=== PATIENT | female | born 1945 | race Caucasian/White ===

== ENCOUNTER → 2018-06-21 08:11 | Outpatient (CLI) | payer OTHER, SELFPAY ==
--- NOTE | 2018-06-21 | DI.MG.S_ITS ---
BILATERAL DIGITAL SCREENING MAMMOGRAM 3D/2D WITH CAD: 06/21/2018 CLINICAL: Routine screening. Comparison is made to exams dated: 06/17/2017 mammogram, 05/25/2016 mammogram, and 05/12/2015 mammogram - [facility]. There are scattered fibroglandular elements in both breasts. Current study was also evaluated with a Computer Aided Detection (CAD) system. There are new grouped fine punctate calcifications in the right breast at 12 o'clock middle depth. There also are new grouped fine calcifications in the right breast central to the nipple anterior depth. No other significant masses, calcifications, or other findings are seen in either breast. IMPRESSION: INCOMPLETE: NEEDS ADDITIONAL IMAGING EVALUATION The new grouped fine punctate calcifications in the right breast at 12 o'clock middle depth are indeterminate. Mediolateral, spot magnification, and additional views are recommended. The new grouped fine calcifications in the right breast central to the nipple anterior depth are indeterminate. Mediolateral, spot magnification, and additional views are recommended. This exam was interpreted at Station ID: [id number]. NOTE: For mammograms, a report in lay terms will be sent to the patient. Approximately 15% of breast malignancies will not be visualized mammographically. In the management of a palpable breast mass, a negative mammogram must not discourage biopsy of a clinically suspicious lesion. Electronically Signed By: Amador doe/les:06/21/2018 09:27:30 letter sent: Additional Imaging Needed ACR BI-RADS Category 0: Incomplete 3340F
== END ==
PROVIDERS: PCP Family Medicine; Visit Provider Student in an Organized Health Care Education/Training Program
DX: Z12.31 Encounter for screening mammogram for malignant neoplasm of breast (principal)
CPT/HCPCS: 77063; 77067

== ENCOUNTER → 2018-06-27 08:55 | Outpatient (CLI) | payer OTHER, SELFPAY ==
--- NOTE | 2018-06-27 08:57 | DI.MG.S_ITS ---
UNILATERAL RIGHT DIGITAL DIAGNOSTIC MAMMOGRAM 3D/2D WITH ADDITIONAL VIEWS: 06/27/2018 CLINICAL: Additional evaluation requested from prior study. Comparison is made to exams dated: 06/21/2018 mammogram, 06/17/2017 mammogram, and 05/25/2016 mammogram - [facility]. There are scattered fibroglandular elements in right breast. There are benign grouped fine punctate round calcifications in the right breast at 12 o'clock middle depth. There also are benign regional fine calcifications in the right breast central to the nipple anterior depth. No other significant masses or calcifications are seen in the breast. IMPRESSION: There is no mammographic evidence of malignancy. A 1 year screening mammogram is recommended. This exam was interpreted at Station ID: [id number]. NOTE: For mammograms, a report in lay terms will be sent to the patient. Approximately 15% of breast malignancies will not be visualized mammographically. In the management of a palpable breast mass, a negative mammogram must not discourage biopsy of a clinically suspicious lesion. Electronically Signed By: Amador doe/les:06/27/2018 10:51:27 letter sent: Normal Exam ACR BI-RADS Category 2: Benign Finding(s) 3342F
== END ==
PROVIDERS: PCP Family Medicine; Visit Provider Student in an Organized Health Care Education/Training Program
DX: R92.8 Other abnormal and inconclusive findings on diagnostic imaging of breast (principal)
CPT/HCPCS: 77065; G0279

== ENCOUNTER → 2018-06-27 11:06 | Outpatient (CLI) | payer OTHER, SELFPAY ==
[2018-06-27 12:18] LABS: BUN Creatinine Ratio 18.8 (6-22); Blood Urea Nitrogen 15 mg/dL (7-17); Calcium 9.4 mg/dL (8.4-10.2); Carbon Dioxide 30 mmol/L (22-32); Chloride 101 mmol/L (98-107); Cholesterol 181 mg/dL (140-199); Estimated Glomerular Filt Rate > 60.0 mL/min (>60); Glucose 113 mg/dL (80-110); HDL Cholesterol 77 mg/dL (40-60); HEMOLYSIS < 15 (0-50); LDL Cholesterol Calculated 95 mg/dL (<100); Potassium 4.6 mmol/L (3.4-5.1); Sodium 142 mmol/L (137-145); Triglycerides 45 mg/dL (35-150)
[2018-06-27 12:30] LABS: Vitamin D 25 Hydroxy (D3) 46.1 ng/mL (30.0-100.0)
== END ==
PROVIDERS: PCP Student in an Organized Health Care Education/Training Program; Visit Provider Student in an Organized Health Care Education/Training Program
DX: E78.2 Mixed hyperlipidemia (principal); E55.9 Vitamin D deficiency, unspecified; I10 Essential (primary) hypertension
CPT/HCPCS: 36415; 80048; 80061; 82306

== ENCOUNTER → 2019-06-20 11:08 | Outpatient (CLI) | payer OTHER, SELFPAY ==
[2019-06-20 12:35] LABS: BUN Creatinine Ratio 26.3 (6-22); Blood Urea Nitrogen 21 mg/dL (7-17); Calcium 10.4 mg/dL (8.4-10.2); Carbon Dioxide 29 mmol/L (22-32); Chloride 102 mmol/L (98-107); Estimated Glomerular Filt Rate > 60.0 mL/min (>60); Glucose 108 mg/dL (80-110); HEMOLYSIS < 15 (0-50); Potassium 4.8 mmol/L (3.4-5.1); Sodium 139 mmol/L (137-145)
== END ==
PROVIDERS: PCP Student in an Organized Health Care Education/Training Program; Visit Provider Student in an Organized Health Care Education/Training Program
DX: R60.9 Edema, unspecified (principal); Z79.899 Other long term (current) drug therapy
CPT/HCPCS: 36415; 80048

== ENCOUNTER → 2019-07-14 13:37 | Outpatient (CLI) | payer OTHER, SELFPAY ==
--- NOTE | 2019-07-14 | DI.MG.S_ITS ---
BILATERAL DIGITAL SCREENING MAMMOGRAM 3D/2D WITH CAD: 07/14/2019 CLINICAL: Routine screening. Comparison is made to exams dated: 06/21/2018 mammogram, 06/17/2017 mammogram, and 05/25/2016 mammogram - [facility]. There are scattered fibroglandular elements in both breasts. Current study was also evaluated with a Computer Aided Detection (CAD) system. There is a 0.6 cm irregular equal density asymmetry in the left breast at 8 o'clock anterior depth. There is possible architectural distortion associated with the asymmetry. No other significant masses, calcifications, or other findings are seen in either breast. IMPRESSION: INCOMPLETE: NEEDS ADDITIONAL IMAGING EVALUATION The 0.6 cm irregular equal density asymmetry in the left breast is indeterminate. Additional views with possible ultrasound are recommended. This exam was interpreted at Station ID: [id number]. NOTE: For mammograms, a report in lay terms will be sent to the patient. Approximately 15% of breast malignancies will not be visualized mammographically. In the management of a palpable breast mass, a negative mammogram must not discourage biopsy of a clinically suspicious lesion. Electronically Signed By: Steve Loera M.D. aty/:07/16/2019 08:17:04 letter sent: Additional Imaging Needed ACR BI-RADS Category 0: Incomplete 3340F
== END ==
PROVIDERS: PCP Student in an Organized Health Care Education/Training Program; Visit Provider Student in an Organized Health Care Education/Training Program
DX: Z12.31 Encounter for screening mammogram for malignant neoplasm of breast (principal)
CPT/HCPCS: 77063; 77067

== ENCOUNTER → 2019-08-14 09:42 | Outpatient (CLI) | payer MEDICARE, SELFPAY ==
--- NOTE | 2019-08-14 | DI.US.S_ITS ---
PROCEDURE: US ABDOMEN LIMITED INDICATIONS: ADDITION VIEW LEFT TECHNIQUE: Real-time focused scanning was performed of the abdomen, with image documentation. COMPARISON: None. FINDINGS: Solid, avascular heterogeneous mass within the soft tissues corresponding to the palpable abnormality measuring 2.9 x 3.5 x 1.5 cm. IMPRESSION: Superficial solid heterogeneous mass corresponding to the palpable abnormality. Differential would include both benign and malignant etiologies. If indicated, soft tissue MRI could be performed for further assessment. Dictated by: Jeronimo HITCHCOCK Interpreted: Jamal Giron MD on 08/14/2019 at 17:10 Approved by: Jamal Giron M.D. on 08/14/2019 at 17:58
--- NOTE | 2019-08-14 | DI.MG.S_ITS ---
UNILATERAL LEFT DIGITAL DIAGNOSTIC MAMMOGRAM 3D/2D WITH ADDITIONAL VIEWS: 08/14/2019 CLINICAL: Additional evaluation requested from prior study. Comparison is made to exams dated: 07/14/2019 mammogram, 06/27/2018 mammogram, 06/21/2018 mammogram, and 06/17/2017 mammogram - [facility]. There are scattered fibroglandular elements in left breast. There is a 0.6 cm irregular equal density asymmetry in the left breast at 9 o'clock anterior depth. This is seen on today's additional views. There is minimal architectural distortion associated with the asymmetry. No other significant masses or calcifications are seen in the breast. IMPRESSION: INCOMPLETE: NEEDS ADDITIONAL IMAGING EVALUATION The 0.6 cm irregular equal density asymmetry in the left breast is indeterminate. An ultrasound is recommended for further evaluation and is scheduled to immediately follow this study. This exam was interpreted at Station ID: [id number]. NOTE: For mammograms, a report in lay terms will be sent to the patient. Approximately 15% of breast malignancies will not be visualized mammographically. In the management of a palpable breast mass, a negative mammogram must not discourage biopsy of a clinically suspicious lesion. Electronically Signed By: Steve Loera M.D. aty/:08/14/2019 10:28:12 ACR BI-RADS Category 0: Incomplete 3340F
--- NOTE | 2019-08-14 09:46 | DI.US.S_ITS ---
ULTRASOUND OF LEFT BREAST AND AXILLA: 08/14/2019 CLINICAL: Patient returns today to evaluate a focal asymmetry in the left breast. Comparison is made to exams dated: 08/14/2019 mammogram, 07/14/2019 mammogram, 06/27/2018 mammogram, 06/21/2018 mammogram, 06/17/2017 mammogram, and 06/03/2016 [facility]. Color flow and real-time ultrasound of the left breast axilla were performed. [place] scale images of the real-time examination were reviewed. There is a 0.5 cm x 0.5 cm irregular mass with an indistinct margin in the left breast at 8 o'clock anterior depth 4 cm from the nipple. This irregular mass is hypoechoic with posterior acoustic shadowing. This correlates with mammography findings. Color flow imaging demonstrates that there is vascularity present. No significant abnormalities were seen sonographically in the left axilla. IMPRESSION: SUSPICIOUS OF MALIGNANCY The 0.5 cm x 0.5 cm irregular mass in the left breast is suspicious of malignancy. An ultrasound guided biopsy is recommended. Findings and treatment recommendations were discussed with the patient by Dr. Jurado during today's visit. This exam was interpreted at Station ID: [id number]. Electronically Signed By: Steve Loera M.D. at/:08/14/2019 12:38:31 letter sent: Biopsy Required Ultrasound BI-RADS: 4 Suspicious for malignancy
== END ==
PROVIDERS: PCP Student in an Organized Health Care Education/Training Program; Visit Provider Student in an Organized Health Care Education/Training Program
DX: R92.8 Other abnormal and inconclusive findings on diagnostic imaging of breast (principal); N63.24 Unspecified lump in the left breast, lower inner quadrant; R19.00 Intra-abdominal and pelvic swelling, mass and lump, unspecified site
CPT/HCPCS: 76642; 76705; 77065; G0279

== ENCOUNTER → 2019-08-27 09:03 | Outpatient (CLI) | payer MEDICARE, SELFPAY ==
--- NOTE | 2019-08-27 09:05 | DI.MRI.S_ITS ---
PROCEDURE: MR ABDOMEN WO/W CON INDICATIONS: Abdominal Mass TECHNIQUE: Coronal HASTE, axial 2D FLASH in- and [id number]; axial breath-hold T2 FSE. Dynamic axial VIBE during the administration of contrast; post-contrast coronal VIBE or 2D FLASH with fat saturation from the hepatic dome to the iliac crests. Optional diffusion weighted imaging and ADC may be performed. COMPARISON: [facility], , US ABDOMEN LIMITED, 08/14/2019, 10:49. FINDINGS: Image quality: Excellent. Lung bases: No basal pleural effusions. Heart size is normal. Solid organs: Liver is normal in size and enhancement. Non-cirrhotic morphology. No significant steatosis. A few simple hepatic cysts. The largest of which measures 2.7 cm. Gallbladder is unremarkable. Biliary system is non dilated. Pancreas is normal in morphology. Spleen is normal in size and enhancement. No adrenal nodules. Both kidneys demonstrate normal size and enhancement, without hydronephrosis. Small simple renal cysts. Nodes and vessels: No retroperitoneal or mesenteric adenopathy by size criteria. Aorta and inferior vena cava are normal in size. Bowel and peritoneum: Small fat containing ventral abdominal wall hernia. The hernia neck measures 2.5 cm, (4/48). No free fluid. No suspicious enhancement. Moderate prominence of the colon diverticulosis. Unenhanced bowel loops are normal in caliber. No free fluid. Appendix is unremarkable. Bones and soft tissues: No ventral hernias. Bone marrow is normal in overall signal. IMPRESSION: 1. Small periumbilical fat containing hernia. No mass or suspicious enhancement. 2. Noncirrhotic morphology. No significant hepatic steatosis. No gallstones seen. No free fluid. Dictated by: Santiago Ascencio M.D. on 08/27/2019 at 16:29 Approved by: Santiago Ascencio M.D. on 08/27/2019 at 16:36
== END ==
PROVIDERS: PCP Student in an Organized Health Care Education/Training Program; Referring Provider Student in an Organized Health Care Education/Training Program; Visit Provider Student in an Organized Health Care Education/Training Program
DX: R19.00 Intra-abdominal and pelvic swelling, mass and lump, unspecified site (principal); K76.89 Other specified diseases of liver; N28.1 Cyst of kidney, acquired; K43.9 Ventral hernia without obstruction or gangrene; K57.90 Diverticulosis of intestine, part unspecified, without perforation or abscess without bleeding
CPT/HCPCS: 74183; A9579

== ENCOUNTER → 2019-08-28 09:06 | Outpatient (CLI) | payer MEDICARE, SELFPAY ==
--- NOTE | 2019-08-28 | PATH_ITS ---
[facility] Accession Number: [id number] . 01 Material submitted: . breast - LEFT BREAST MASS 8 OC 4 CM FROM NIPPLE . 02 Diagnosis: Left Breast Mass at 8 o'clock 4 cm from Nipple, Needle Core Biopsies: Invasive ductal carcinoma with apocrine metpalasia and the following features: 1. [place] grade: 2 of 3 provisional grade; defer to excised specimen for definitive grade (tubules 3 of 3; nuclei 2 of 3; mitotic activity 1 of 3). 2. Greatest linear extent: 4 mm. 3. Ductal carcinoma in situ: Not identified. 4. Microcalcifications: Not identified. 5. Lymph-vascular invasion: Not identified. 6. Prognostic markers: Please see microscopic description. . . MRV 08/30/2019 1501 Local . 02 Comment: toucher up performed by Dr. Satnam Winters. . Results discussed with Dr. Cristhian Jimenez on 08/29/2019 at approximately 12:30 p.m. . 02 Electronically signed: . Lianna Peña MD, Pathologist NPI- [id number] . 01 Gross description: . Received one formalin-filled container, labeled with the patient's name and designated left breast mass 8 oc 4 cm from nipple. The specimen is received with a plastic filter in container, sample loose in container and consists of multiple pieces of yellow-de la torre tissue and blood which range in size from less than 0.1 cm to 0.6 x 0.3 x 0.3 cm. The specimen filtered, wrapped, and entirely submitted in one cassette. Collection date: 08/28/19. Collection time per container: 10:45. Total fixation time: Approximately 10 hours. (DC:[id number]) /FRTeresa 08/31/2019 0911 Local . 02 Microscopic: . Immunohistochemical stains were performed and the results are reported below. The control stains showed appropriate reactivity. . RESULTS: GATA3: Uniformly positive GCDFP15: Scattered positivity . These immunohistochemsitry findings support a breast origin and the presence of apocrine differentiation. . CAP BREAST BIOMARKER REPORT: . Estrogen Receptor (ER) Status: Positive, greater than 90% of tumor nuclei. Average intensity of staining: Strong. Primary antibody: SP1 Progesterone Receptor (PgR) Status: Positive, greater than 95% of tumor nuclei. Average intensity of staining: Strong. Primary antibody: 1E2 HER2 (by immunohistochemistry): Negative at 1+. Percentage of cells with uniform intense complete membrane stainin Primary antibody: 4B5 . . Cold Ischemia and Fixation Times: Meets requirements in the latest version of the ASCO/CAP guidelines. Testing performed on Block Number: A1 . TECHNICAL NOTE: The scoring criteria for breast biomarkers by immunohistochemistry is based on the current ASCO/CAP guidelines (Keiko et al, Arch Pathol Lab Med 2010: 134(6): 907-922 / Radha CHONG et al, Arch Pathol Lab Med 2014: 138(2): 241-256). Deparaffinized sections of formalin fixed tissue (along with appropriate positive controls) are incubated with the above antibody(s). Using the automated Johnson Siding stainer, tissue is incubated with the designated antibody* which is then localized by a non-biotin, dual polymer detection system. The external controls are reviewed for appropriate reactivity and found to be adequate. Results on the target cell population are indicated above. This test was developed and its performance characteristics determined by [facility]. It has not been cleared or approved by the U.S. Food and Drug Administration. The FDA has determined that such clearance or approval is not necessary. This test is used for clinical purposes. It should not be regarded as investigational or for research. . An immunohistochemical stain for CHRIS-3 is performed to evaluate for block reactivity and is positive. The control stained with appropriate reactivity. . An immunohistochemical stain for GCDFP15 is performed to evaluate for block reactivity and shows scattered positivity. The control stained with appropriate reactivity. . * This test was developed and its performance characteristics determined by [facility]. It has not been cleared or approved by the U.S. Food and Drug Administration. The FDA has determined that such clearance or approval is not necessary. This test is used for clinical purposes. It should not be regarded as investigational or for research. . 02 Pathologist provided ICD-10: C50.912 . 02 CPT . 733037, 352463, 793530, 353419, Q44601, S47435 Performed at: 01 [facility] [address] [id number] MD Amador Pierre MD Phone: [phone] Performed at: 02 [facility] [address] [place] [id number] MD Zunilda Coreas MD Phone: [phone]
--- NOTE | 2019-08-28 | DI.MG.S_ITS ---
UNILATERAL LEFT DIGITAL DIAGNOSTIC MAMMOGRAM POST-NEEDLE BIOPSY: 08/28/2019 CLINICAL: Left breast mass-post clip. Comparison is made to exams dated: 08/14/2019 mammogram, 07/14/2019 mammogram, and 06/21/2018 mammogram - [facility]. There are scattered fibroglandular elements in left breast. There is a marker clip in the appropriate position in the left breast at 8 o'clock anterior depth. This marker clip placement is at the biopsy site. This correlates with ultrasound findings and the biopsy site. IMPRESSION: POST PROCEDURE MAMMOGRAM FOR MARKER PLACEMENT There was a successful marker clip placement in the left breast anterior depth at the 8 o'clock position. This exam was interpreted at Station ID: [id number]. NOTE: For mammograms, a report in lay terms will be sent to the patient. Approximately 15% of breast malignancies will not be visualized mammographically. In the management of a palpable breast mass, a negative mammogram must not discourage biopsy of a clinically suspicious lesion. Electronically Signed By: Steve Loera M.D. aty/:08/28/2019 18:16:28 ACR BI-RADS Category Post-procedure mammogram for marker placement
--- NOTE | 2019-08-28 09:08 | DI.US.S_ITS ---
ULTRASOUND GUIDED BIOPSY LEFT BREAST USING VACUUM DEVICE WITH MARKING DEVICE INSERTED AND POST MAMMOGRAPHIC IMAGIN08/28/2019 CLINICAL: Left breast mass. PATIENT CONSENT: Risks (minor bleeding, infection, vasovagal reaction and repeat procedure), benefits and alternatives were explained to the patient and written informed consent was obtained. Correlation is made to exams dated: 08/28/2019 mammogram, 08/14/2019 ultrasound, 08/14/2019 mammogram, and 07/14/2019 mammogram - [facility]. An ultrasound guided biopsy using real-time ultrasound was performed for the 0.5 cm x 0.5 cm irregular shaped mass located in the left breast at 8 o'clock anterior depth 4 cm from the nipple. This was described on the previous mammography and ultrasound reports. The skin was prepped in the usual manner. Local anesthetic was administered to the access site. A skin lubna was made in the breast. The abnormality was approached at 7 o'clock. A 13 gauge biopsy needle was placed adjacent to the abnormality under ultrasound guidance. Once the needle was documented to be in the correct location, five specimens were obtained using the Mammotome biopsy system. A clip was inserted into the biopsy cavity. A sterile dressing was applied to the access site. Post procedure mammographic imaging demonstrates the location device at the targeted area. The specimens were sent to the laboratory for pathological analysis. IMPRESSION: ULTRASOUND GUIDED BIOPSY MALIGNANT Ultrasound guided biopsy of the 0.5 cm x 0.5 cm mass in the left breast at 8 o'clock anterior depth 4 cm from the nipple was successful. 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 Pathology results are concordant with imaging findings. A surgical and oncologic consult is recommended. This exam was interpreted at Station ID: [id number]. Steve Loera M.D. aty/:09/05/2019 07:17:15
--- NOTE | 2019-09-20 14:27 | ONC.MSW ---
Description: Initial Referral Navigation T/C Activity: [facility] called to request an urgent initial appt. time for a newly diagnosed breast cancer patient. CHEMICAL PROCESS PROJECT ENGINEER was able to call them back, while patient was still there, and confirm the time for 09/24 at 10:00am, 9:40am check-in time. Requested for them to relay to pt that this CHEMICAL PROCESS PROJECT ENGINEER will call her next Tuesday to discuss resources, assistance, and discuss any immediate needs that she may have.
== END ==
PROVIDERS: PCP Student in an Organized Health Care Education/Training Program; Referring Provider Student in an Organized Health Care Education/Training Program; Visit Provider Student in an Organized Health Care Education/Training Program
DX: C50.312 Malignant neoplasm of lower-inner quadrant of left female breast (principal); Z17.0 Estrogen receptor positive status [ER+]
CPT/HCPCS: 19083; 77065

== ENCOUNTER → 2019-11-16 10:02 | Outpatient (CLI) | payer MEDICARE, SELFPAY ==
[2019-11-17 02:03] LABS: COVID19 Sendout Not Detected (Not Detect)
== END ==
PROVIDERS: PCP Student in an Organized Health Care Education/Training Program; Visit Provider Physician Assistant
DX: Z03.818 Encounter for observation for suspected exposure to other biological agents ruled out (principal)
CPT/HCPCS: 87635

== ENCOUNTER → 2019-11-22 07:52 | Outpatient (CLI) | payer MEDICARE, SELFPAY ==
--- NOTE | 2019-11-22 08:02 | DI.MG.S_ITS ---
DIGITAL MAMMOGRAPHY GUIDED WIRE LOCALIZATION LEFT BREAST: 11/22/2019 CLINICAL: Breast cancer. Correlation is made to exams dated: 08/28/2019 mammogram, 08/14/2019 mammogram, and 07/14/2019 mammogram - [facility]. A wire localization using digital mammography guidance was performed for the marker clip located in the left breast at 8 o'clock anterior depth. The skin was prepped in the usual manner. Local anesthetic was administered to the access site. The localization was approached from the medial aspect. A wire was inserted into the targeted area under digital mammography guidance. IMPRESSION: WIRE LOCALIZATION Wire localization for the marker clip in the left breast at 8 o'clock anterior depth was successful. A specimen radiograph is recommended. This exam was interpreted at Station ID: [id number]. Kevin nava/:11/22/2019 13:36:58
--- NOTE | 2019-11-22 08:02 | DI.NM.S_ITS ---
PROCEDURE: NM SENTINEL NODE W IMAGING RADIOPHARMACEUTICAL: 0.5-1.0 mCi Millipore filtered Tc-99m sulfur colloid. INDICATIONS: lump in left breast TECHNIQUE: The area around the nipple was prepped and draped in a sterile fashion. Tc-99m sulfur colloid was injected intra-dermally in the outer edge of the areola in the left breast. Images were obtained subsequently. A body contour outline was obtained. FINDINGS: There is Mora lymph node in the ipsilateral axilla. IMPRESSION: A sentinel lymph node is visualized in the left axilla. Dictated by: Keven Villarreal M.D. on 11/22/2019 at 10:36 Approved by: Keven Villarreal M.D. on 11/22/2019 at 10:40
== END ==
PROVIDERS: PCP Student in an Organized Health Care Education/Training Program; Referring Provider Surgery; Visit Provider Surgery
DX: C50.312 Malignant neoplasm of lower-inner quadrant of left female breast (principal); Z17.0 Estrogen receptor positive status [ER+]
CPT/HCPCS: 19281; 78195; A9541; G0279

== ENCOUNTER 2019-11-22 08:39 | Day surgery (SDC) | payer MEDICARE, SELFPAY ==
[2019-11-19 10:31] VITALS: BMI 42.0
[2019-11-22] VITALS (11 sets, daily range): BP systolic 100–138; BP diastolic 54–71; PULSE 57–67; RESP 8–21; TEMP 36.3–36.9; O2SAT 94–97; BMI 41.1
--- NOTE | 2019-11-22 | PATH_ITS ---
[facility] Accession Number: [id number] . 01 Material submitted: . PART A: breast - LEFT BREAST PART B: lymph node - HOT NON-BLUE SENTINEL NODES . 01 Clinical history: . LEFT BREAST CANCER . 01 Diagnosis: A. Left Breast, Lumpectomy With Wire Localization: Invasive ductal carcinoma, intermediate grade. -[place] score 6/9 possible (histologic=3, nuclear=2, mitotic index=1). -Tumor site: Not specified. -Tumor size: 0.8 cm (as measured from the glass slide), largest invasive focus. -Tumor focality: Single focus of invasive carcinoma. -Ductal carcinoma in situ: Present, cribriform type with intermediate grade nuclei (negative for extensive intraductal component). -Margins of excision: Positive for invasive carcinoma (0.1 cm focus of invasive carcinoma identified at inked margin; specimen not oriented; closest other margin equals 0.4 cm); Negative for DCIS (closest 1.0 cm). -Lymphovascular invasion: Not identified. -Uninvolved breast tissue: Biopsy site change, fibrocytic change, microcalifications, and rare focus of atypical ductal hyperplasia. -Pathologic stage classification (AJCC 8th Edition): pT1b. . B. [place] Lymph Node, Hot Non-Blue, Excision: Single lymph node negative for malignancy (0/1). [facility] 11/26/2019 1631 Local . 01 Electronically signed: . Minnie Osman MD, Pathologist NPI- [id number] . 01 Gross description: . (A) Received: In formalin, labeled left breast cancer. Specimen: Partial mastectomy, designated as left breast on requisition and container. Weight: 24 grams. Measurement: 6.5 x 4.0 x 2.0 cm. Skin ellipse: Absent. Wire: Present, penetrating one end of the specimen and terminating within approximately the center of the specimen. Margins: Unoriented, entirely inked black. Sliced: Serially sectioned along the long axis into 13 slices. Lesions: One definitive lesion identified. Description: Firm, trent-white mass containing a biopsy clip found in slice #9. Size: 0.8 x 0.5 x 0.5 cm. Slices involved: Slices #8-#10. Biopsy site: Identified in slice #9. Distance to margins: 0.1 cm from the closest resection margin, 2.3 cm from the fartherest long axis resection margin (slice #1) and 1.3 cm from the closest long axis resection margin (slice #13). Other: The remaining cut surface consists of bright yellow, lobulated adipose tissue with scattered, focally firm, fibrous areas. No additional definitive masses or lesions are identified. Fixation time: The specimen was placed in formalin on November 22, 2019 with no time given. The total fixation time is calculated to be approximately 69 hours and 30 minutes. Sections: A1-A2: Slice #1, fibrous area identified, perpendicular. A3-A4: Slice #2, fibrous area identified and submitted in A4. A5-A6: Slice #3. A7-A8: Slice #4, tissue involving localization wire, fibrous tissue identified. A9-A10: Slice #5, tissue involving localization wire. A11-A12: Slice #6. A13-A14: Slice #7, slice adjacent to mass, no mass or fibrous tissue ' identified. A15-A16: Slice #8, firm fibrous area/apparent mass, included in measurement of the mass. A17-A18: Slice #9, mass, location of biopsy marker, the biopsy marker was difficult to remove, tearing the mass upon removal. A19-A20: Slice #10, mass is present. A21: Slice #11, slice adjacent to mass, no mass or fibrous tissue identified. A22: Slice #12. A23: Slice #13, fibrous area identified, perpendicular. Specimen is entirely submitted. (B) Received in formalin, labeled hot non-blue sentinel nodes, are multiple pieces of bright yellow adipose tissue (3.0 x 2.5 x 1.5 cm in aggregate) containing a 2.4 x 1.5 x 0.8 cm lymph node. Serially sectioned and entirely submitted in cassettes B1-B3. The remaining adipose tissue is entirely submitted in cassette B4. (:[id number]) /FRR 11/24/2019 1414 Local . 01 Pathologist provided ICD-10: C50.912 . 01 CPT . 453704, 610923 Performed at: 01 [facility] [address], [place], [place] [id number] MD Amador Pierre MD Phone: [phone]
--- NOTE | 2019-11-22 | DI.MG.S_ITS ---
SPECIMEN LEFT BREAST: 11/22/2019 CLINICAL: Breast cancer. Correlation is made to exams dated: 11/22/2019 localization, 08/28/2019 mammogram, and 08/14/2019 mammogram - [facility]. A surgical specimen was imaged for the previous biopsy site located in the left breast at 8 o'clock anterior depth. IMPRESSION: SPECIMEN The imaged specimen includes a biopsy clip and the distal portion of the localization wire. Waiting for pathology results. A final report will be issued when these become available. This exam was interpreted at Station ID: [id number]. Kevin nava/:11/22/2019 13:38:33
[2019-11-22] MEDS: LACTATED RINGERS 1,000 ML 100 ML IV (11:30)
[2019-11-22] MEDS: CEFAZOLIN 2 GM/100 ML FROZ.PIGGY IV (12:10)
--- NOTE | 2019-11-22 12:16 | PM.PREOP ---
Pre-operative Note COVID-19 COVID-19 status: Negative Result date/Date tested (Pos, Neg/Pending): 11/20/19 Interval Note History & Physical reviewed/Exam performed by Physician: Yes Changes to H&P: No
--- NOTE | 2019-11-22 12:49 | SUR.OPER ---
Supine on padded OR bed, head on pillow, arms secured on padded arm boards at <90 degrees abduction, legs uncrossed, safety belt at thigh, tape over blanket over lower legs.
[2019-11-22] MEDS: BUPIVACAINE 0.25% W/ EPI 30 ML VIAL INJ (12:55)
[2019-11-22] MEDS: METHYLENE BLUE 50 MG/10 ML VIAL INJ (12:56)
--- NOTE | 2019-11-22 13:54 | PM.OP.1 ---
Operative Date/Time/Diagnoses Date of procedure: 11/22/19 Time of procedure: 13:54 Pre-op diagnosis: Left breast cancer Post-op diagnosis: same Procedure & Clinicians Procedure: 1) Left breast lumpectomy with wire localization 2) left axillary sentinel lymph node biopsy with gamma probe and Technicium-99 guidance Same procedure as scheduled: Yes Indications: Left breast cancer; the patient went to Radiology prior to surgery, and had needle localization and technetium 99 injection for lymph node identification; preop imaging showed a hot lymph node in the left axilla Surgeon: Cristina Chaudhary Home Office Claims Examiner: Flash Baker Anesthesia Type: General Operative Notes Findings: Left breast mass with clip and wire; hot, non-blue axillary lymph nodes Closure Type: primary Specimen(s): other (left breast cancer with wire and clip; left axillary sentinel lymph node, hot, non-blue) Estimated Blood Loss (mL): 10 Procedure in detail: The patient was brought into the OR and placed supine on the OR table. Sequential compression devices were placed on both legs and turned on. General anesthesia was induced and the patient was intubated. Appropriate perioperative antibiotics were given. Surgical time out was performed. 5mL's of 0.5% Methylene blue were injected subdermally in the subareaolar space. The tissue was massaged for 10 minutes. The chest and left axilla were prepped and draped in sterile fashion. Attention was then turned to the breast. Local anesthetic was infiltrated into the skin adjacent to the localization wire, on the medial surface of the left breast at 9:00 a.m. A 3 cm transverse incision was made at that site. Dissection was carried down through the dermis using a 15 blade. Cautery was then used to dissect a 1 cm core following the wire to its tip. Once the entire specimen was dissected out, it was passed off the table and sent to Radiology for identification of the wire and the clip. Hemostasis was achieved in the wound using electrocautery, and a Ray-Jose D was placed in the wound, and attention turned to the left axilla. The gamma probe was used to identify a hot spot in the axilla. Local anesthetic was infiltrated in the skin in an appropriate skin crease at the border of the axilla. A 15 blade was then used to make a 6cm curvilinear incision in the skin at this site. Dissection was carried down to through subcutaneous fat using cautery. The clavipectoral fascia was identified and opened. A small group of lymph nodes were identified using the gamma probe, and were removed. Gamma count was greater than 13,000 in this group of nodes. Gamma count of the axilla after removal of the nodes was under 20. They were passed off the table for pathology. Attention was then turned to the breast. Two 0 Vicryl was used to close the gap in the breast tissue. Then 3-0Vicryl was used to bring together the subcutaneous fat tissue, and to close the dermis of the breast incision and the axillary incision. 4-0 Monocryl was used to close the skin with a subcuticular running suture. The skin was then sealed with dermabond. A surgical support was placed with extra padding over the left breast. The patient was then awakened from anesthesia and extubated. Needle sponge and instrument counts were correct x 2. The patient was transferred to the PACU in stable condition. Complications: none Post-operative Condition: stable Disposition: PACU
--- NOTE | 2019-11-22 14:16 | SUR.PHASEI ---
Patient sitting up, eating ice chips. Dr. Chaudhary talking with the patient. She continues to deny pain. Drowsy/oriented. VSS.
--- NOTE | 2019-11-22 14:20 | SUR.PHASEI ---
warm blankets given, declines PO solids and pain medication; tolerating ice chips well. Her daughter is on the way to pick her up.
--- NOTE | 2019-11-22 14:23 | SUR.PHASEI ---
Stable, drowsy, denies pain/nausea. Preparing to transfer to Phase II
[2019-11-22] MEDS: OXYCODONE/ACETAMINOPHEN 5/325 TABLET 1 TAB PO (14:38)
--- NOTE | 2019-11-22 15:01 | SUR.PHASEII ---
Reviewed instructions, no questions remaining. Daughter nearby to pickup. Pt dressing.
--- NOTE | 2019-11-22 15:40 | SUR.PHASEII ---
1507 late entry To car in , transferred easily and independently into car. Ice pack with patient. No concerns/questions upon discharge.
== END 2019-11-22 15:07 | disposition home or self-care (01) ==
PROVIDERS: PCP Student in an Organized Health Care Education/Training Program; Referring Provider Surgery; Visit Provider Surgery
PROC: (CPT 19301; principal; 2019-11-22 12:00)
DX: C50.312 Malignant neoplasm of lower-inner quadrant of left female breast (principal); Z17.0 Estrogen receptor positive status [ER+]; E66.9 Obesity, unspecified
CPT/HCPCS: 19301; 38500; 19281; 76098; 78195; A9541; G0279; J0690; J1100; J1885; J2250; J2405; J2704; J3010; Q9968

== ENCOUNTER → 2019-12-11 09:41 | Outpatient (CLI) | payer MEDICARE, SELFPAY ==
--- NOTE | 2019-12-11 09:44 | DI.MRI.S_ITS ---
BREAST MRI OF BOTH BREASTS: 12/11/2019 CLINICAL: Carcinoma of breast. PROCEDURE: MR BREAST BI WO/W CON INDICATIONS: positive margin on adequate lumpectomy specimen TECHNIQUE: The patient was placed prone in a dedicated breast imaging coil. Precontrast axial STIR and 3D FLASH without fat saturation sequences were obtained. Both before and after bolus injection of contrast, sequential 1-minute axial 3D FLASH with fat saturation sequences for 3 time points, with subtraction images and maximum intensity projections (MIP's) generated. Delayed sagittal FLASH images with fat saturation were also obtained. Computer-aided detection, including computer algorithm analysis of MRI image data for lesion detection and characterization, pharmacokinetic analysis, with further physician review for interpretation, was performed. COMPARISON: None. FINDINGS: Image quality: Excellent. There is minimal background parenchymal enhancement. Right breast: No suspicious mass lesions or abnormal enhancement. A partially calcified mass is visualized at approximately 6:00 at a middle depth which corresponds with a stable mammographic finding and likely represents a partially calcified fibroadenoma. Left breast: Postoperative changes are noted within the left breast at 6:00. Subtle non-masslike enhancement is present along the surgical tract most likely representing postsurgical inflammatory residua. There is no discrete masslike enhancement. However, subtle non-masslike enhancement along the surgical tract likely represents postsurgical inflammatory residua. Postoperative changes are noted within the upper-outer quadrant of the left breast at a posterior depth. There is no discrete masslike enhancement to suggest residual disease; however subtle enhancement along the surgical tract remains and likely represents inflammatory residua. There is a rim-enhancing 3.9 x 3.9 x 4.1 cm fluid collection within the left axilla which most likely represents a seroma. IMPRESSION: KNOWN BIOPSY PROVEN MALIGNANCY 1. Non-masslike enhancement surrounding the operative bed at 6:00 at an anterior depth and at the left axilla. Findings are most consistent with post operative inflammatory residua. There is no discrete masslike enhancement; however trace residual disease cannot be excluded. Consider six-month followup MRI if there is clinical suspicion for residual disease. 2. Probably post operative seroma in the left axilla. However, given trace rim enhancement, hemotoma and abcess are also in the differential. 3. No findings to suggest contralateral disease. This exam was interpreted at Station ID: [id number]. Electronically Signed By: Toshia Rodarte M.D. lk/:12/11/2019 12:58:32 ACR BI-RADS Category 6: Known biopsy proven malignancy 3346F
[2019-12-11 11:33] LABS: Add Manual Diff / Slide Review NO; Basophils Absolute Auto 100 /uL (0-100); Eosinophils Absolute Auto 200 /uL (0-450); Hematocrit 38.5 % (36-46); Hemoglobin 12.8 g/dL (12.0-16.0); Lymphocytes Absolute Auto 1200 /uL (1100-4500); Lymphocytes Percent Auto 16.5 % (25-40); Mean Corpuscular HGB Conc 33.2 % (30-36); Mean Corpuscular Hemoglobin 29.7 PG (26-34); Mean Corpuscular Volume 89.3 fL (80-100); Monocytes Absolute Auto 500 /uL (0-900); Monocytes Percent Auto 6.4 % (3-14); Neutrophils Absolute Auto 5200 /uL (1500-7000); Neutrophils Percent Auto 73.1 % (50-75); Platelet Count 239 X10^3/uL (150-400); Red Blood Cell Count 4.31 X10^6/uL (4.0-5.2); Red Cell Distribution Width 14.6 % (11.6-14.8); White Blood Cell Count 7.1 X10^3/uL (4.5-11.0)
[2019-12-11 11:46] LABS: Alanine Aminotransferase 13 IU/L (<35); Albumin 4.3 g/dL (3.5-5.0); Albumin Globulin Ratio 1.2 (1.0-2.8); Alkaline Phosphatase 76 U/L (38-126); Aspartate Aminotransferase 19 IU/L (14-36); BUN Creatinine Ratio 20.3 (6-22); Bilirubin Total 0.8 mg/dL (0.2-1.3); Blood Urea Nitrogen 14 mg/dL (7-17); Calcium 9.5 mg/dL (8.4-10.2); Carbon Dioxide 31 mmol/L (22-32); Chloride 101 mmol/L (98-107); Estimated Glomerular Filt Rate > 60.0 mL/min (>60); Globulin 3.7 g/dL (1.7-4.1); Glucose 120 mg/dL (80-110); HEMOLYSIS < 15 (0-50); Potassium 4.5 mmol/L (3.4-5.1); Sodium 137 mmol/L (137-145)
== END ==
PROVIDERS: Internal Medicine Hematology & Oncology; PCP Student in an Organized Health Care Education/Training Program; Referring Provider Surgery; Visit Provider Surgery
DX: C50.312 Malignant neoplasm of lower-inner quadrant of left female breast (principal); Z17.0 Estrogen receptor positive status [ER+]
CPT/HCPCS: 36415; 77049; 80053; 85025; A9579

== ENCOUNTER → 2019-12-17 14:13 | Outpatient (CLI) | payer MEDICARE, SELFPAY ==
[2019-12-18 10:46] LABS: COVID19 Sendout Not Detected (Not Detect)
== END ==
PROVIDERS: PCP Student in an Organized Health Care Education/Training Program; Visit Provider Registered Nurse
DX: Z01.812 Encounter for preprocedural laboratory examination (principal)
CPT/HCPCS: 87635

== ENCOUNTER 2019-12-19 10:12 | Day surgery (SDC) | payer MEDICARE, SELFPAY ==
[2019-12-19] VITALS (10 sets, daily range): BP systolic 88–142; BP diastolic 43–74; PULSE 50–66; RESP 8–17; TEMP 35.8–36.8; O2SAT 92–97; BMI 40.8
--- NOTE | 2019-12-19 | PATH_ITS ---
[facility] Accession Number: [id number] . 01 Material submitted: . PART A: breast - ANTERIOR MARGIN LEFT BREAST BIOPSY PART B: breast - DEEP MARGIN LEFT BREAST BIOPSY PART C: breast - SUPERIOR LATERAL MARGIN LEFT BREAST BIOPSY PART D: breast - INFERIOR MEDIAL MARGIN LEFT BREAST BIOPSY PART E: breast - ADDITIONAL LATERAL MARGIN LEFT BREAST BIOPSY . 02 Diagnosis: A. Left Breast, Anterior Margin: Changes consistent with prior procedure. Negative for atypical hyperplasia, in situ, or invasive carcinoma. . B. Left Breast, Deep Margin: Focal atypical ductal hyperplasia. Changes consistent with prior procedure are present. No evidence of invasive carcinoma. . C. Left Breast, Superior Lateral Margin: Fibrocystic changes. Changes consistent with prior procedure. Negative for atypical hyperplasia, in situ, or invasive carcinoma. . D. Left Breast, Inferior Medial Margin: Fibrofatty breast tissue with fibrocystic-type changes. Changes consistent with prior procedure. Negative for atypical hyperplasia, in situ, or invasive carcinoma. . E. Left Breast, Additional Lateral Margin: Changes consistent with prior procedure. Negative for atypical hyperplasia, in situ, or invasive carcinoma. [facility] 12/24/2019 1433 Local . 02 Comment: As part of routine supervisor vendor quality, Dr. Peña also reviewed selected slides (B2, B3, B5) and immunohistochemical stains, and agrees with the interpretation. Dr. Coreas discussed preliminary findings with Dr. Chaudhary on 12/21/19. . 02 Electronically signed: . Zunilda Coreas MD, Pathologist NPI- [id number] . 01 Gross description: . (A) Received: In formalin, labeled anterior margin left breast biopsy. Specimen: Partial mastectomy. Weight: 6 grams. Measurement: 4.0 x 2.2 x 1.6 cm. Skin Ellipse: Absent. Wire: Absent. Margins: The specimen is not oriented; therefore, it is entirely inked blue. Sliced: Serially sectioned into 10 slices. Lesions: No nodules, masses or lesion are identified. Other: The cut surface consists of yellow, lobulated and focally firm and pale adipose tissue. Sections: Entirely submitted in cassettes A1-A10, one slice in each cassette with slices 1 and 10 perpendicularly sectioned. . (B) Received: In formalin, labeled deep margin left breast biopsy. Specimen: Partial mastectomy: Weight: 9 grams. Measurement: 4.5 x 2.5 by up to 2.0 cm. Skin Ellipse: Absent. Wire: Absent. Margins: The specimen is unoriented; therefore, it is entirely inked blue. Sliced: Serially sectioned into 12 slices. Lesions: No nodules, masses or lesions are identified. Other: The cut surface is yellow lobulated focally firm and fibrous adipose tissue. Sections: Entirely submitted in cassettes B1-B12, one slice in each cassette, slices 1 and 12 are perpendicularly sectioned. . (C) Received: In formalin, superior lateral margin left breast biopsy. Specimen: Partial mastectomy. Weight: 6 grams. Measurement: 3.7 x 1.5 x 1.0 cm. Skin Ellipse: Absent. Wire: Absent. Margins: The specimen is unoriented; therefore, it is entirely inked blue. Sliced: Serially sectioned into six slices. Lesions: No nodules, masses or lesions are identified. Other: The cut surface consists of yellow focally firm and pale lobulated adipose tissue. Sections: Entirely submitted in cassettes C1-C6, one slice in each cassette, slices 1 and 6 are perpendicularly sectioned. . (D) Received: In formalin, labeled inferior medial margin left breast biopsy. Specimen: Partial mastectomy in three pieces. Weight: Piece 1-less than 1 gram, piece 2-3 grams, piece 3-3 grams. Measurements: Piece 1-1.8 x 1.0 x 0.4 cm, piece 2-3.5 x 2.7 x 0.7 cm, piece 3-4.5 x 2.0 x 0.8 cm. Skin Ellipse: Absent. Wire: Absent. Margins: The specimen is unoriented; therefore, is entirely inked blue. Sliced: Each piece is serially sectioned as follows: piece 1-three slices, slice 2-six slices; piece 3-eight slices. Lesions: No nodules, masses or lesions are identified. Other: The cut surfaces consist of yellow lobulated adipose tissue. Sections: Piece 1 is entirely submitted in cassettes D1-D3, one slice in each cassette with slices 1 and 3 perpendicularly sectioned. Piece 2 is entirely submitted in cassettes D4-D9, one slice in each cassette, slice 1 and 6 are perpendicularly sectioned. Piece 3 is entirely submitted in cassettes D10-D17, one slice in each cassette, slices 1 and 8 are perpendicularly sectioned. . (E) Received: In formalin, labeled additional lateral margin left breast biopsy. Specimen: Partial mastectomy in two pieces. Weight: Piece 1-1 gram, piece 2-3 grams. Measurement: Piece 1-2.5 x 1.5 x 0.7 cm, piece 2-4.0 x 2.5 x 0.9 cm. Skin Ellipse: Absent. Wire: Absent. Margins: The specimen is unoriented; therefore, is entirely inked blue. Sliced: Each are serially sectioned as follows: piece 1- four slices; piece 2-seven slices. Lesions: No nodules, masses or lesions are identified. Other: The cut surfaces consist of yellow lobulated adipose tissue. Sections: Piece 1 is entirely submitted in cassettes E1-E4, one slice in each cassette, slices 1 and 4 are perpendicularly sectioned. Piece 2 is entirely submitted in cassettes E5-E11, one slice in each cassette, slices 1 and 7 are perpendicularly sectioned. . Note: The approximate total fixation time in formalin for all specimens (A-E) is calculated to be 36 hours 30 minutes calculated using a collection date of 12/19/2019 with no collection time given. ([id number]) /[facility] 12/20/2019 1500 Local . 02 Microscopic: . B. Immunohistochemical stains were performed on block B2 in order to characterize cells of interest. All control stains showed appropriate reactivity. . RESULTS: Estrogen receptor: Diffusely positive in the region of interest. CK 5/6: Mostly negative in the region of interest; however, adjacent cells positive. . INTERPRETATION: Most of the cells of interest are CK 5/6 negative and ER positive; however, adjacent cells show some heterogeneity. Overall, this area is best interpreted as an area of atypical ductal hyperplasia. . * This test was developed and its performance characteristics determined by [facility]. It has not been cleared or approved by the U.S. Food and Drug Administration. The FDA has determined that such clearance or approval is not necessary. This test is used for clinical purposes. It should not be regarded as investigational or for research. . 02 Pathologist provided ICD-10: C50.912 . 02 CPT . 053120, 723300, 084999, 045120, 439768, [id number], [id number] Performed at: [address] [id number] MD Amador Pierre MD Phone: [phone] Performed at: [facility] [address] [place] [id number] MD Zunilda Coreas MD Phone: [phone]
[2019-12-19] MEDS: LACTATED RINGERS 1,000 ML 100 ML IV ×2 (11:05→13:07)
[2019-12-19] MEDS: CEFAZOLIN 2 GM/100 ML FROZ.PIGGY IV (11:40)
--- NOTE | 2019-12-19 11:40 | PM.PREOP ---
Pre-operative Note COVID-19 COVID-19 status: Negative Interval Note History & Physical reviewed/Exam performed by Physician: Yes Changes to H&P: No
--- NOTE | 2019-12-19 12:09 | SUR.OPER ---
Supine on padded OR bed, head on pillow, arms secured on padded arm boards at <90 degrees abduction, legs uncrossed, safety belt at thigh, tape over blanket over lower legs.
[2019-12-19] MEDS: BUPIVACAINE 0.25% W/ EPI 30 ML VIAL INJ (12:39)
--- NOTE | 2019-12-19 12:57 | P.OP_ITS ---
Operative Date/Time/Diagnoses Date of procedure: 12/19/19 Time of procedure: 12:57 Pre-op diagnosis: left breast cancer s/p lumpectomy with positive margin Procedure & Clinicians Procedure: Partial mastectomy for margins Same procedure as scheduled: Yes Indications: This is a 74 yo woman with left breast cancer. She had a tiny focal margin on her prior lumpectomy. She returns for excision of margins. Surgeon: Cristina Chaudhary Click Yes if Unassisted: Yes Anesthesia Type: General Operative Notes Findings: Healing lumpectomy cavity Specimen(s): other (anterior, deep, superior lateral, inferior medial margins; additional medial margin) Estimated Blood Loss (mL): 1 Procedure in detail: The patient was brought into the OR and placed supine on the OR table. Sequential compression devices were placed on both legs and turned on. General anesthesia was induced and the patient was intubated with an LMA. Appropriate perioperative antibiotics were given. Surgical time out was performed. Attention was then turned to the left breast. Local anesthetic was infiltrated into the skin at the location of the prior breast incision medial to the nipple areolar complex. The prior lumpectomy site was identified and dissection was carried circumferentially around the prior excision site. I dissected out the anterior, deep, superior medial and inferior lateral margins and passed each off the table separately. I took an additional medial margin. Hemostasis was achieved using cautery. 2-O Vicryl was used to close the gap in the breast tissue. Then 3-0 Vicryl was used to bring together the subcutaneous fat tissue, and to close the dermis of the breast incision. 4-O Monocryl was used to close the skin with a subcut icular running suture. The skin was then sealed with dermabond. A surgical support was placed with extra padding over the left breast. The patient was then awakened from anesthesia and extubated. Needle sponge and instrument counts were correct x 2. The patient was transferred to the PACU in stable condition. Complications: none Post-operative Condition: stable Disposition: PACU
[2019-12-19] MEDS: OXYCODONE/ACETAMINOPHEN 5/325 TABLET 1 TAB PO (13:29)
== END 2019-12-19 14:49 | disposition home or self-care (01) ==
PROVIDERS: PCP Student in an Organized Health Care Education/Training Program; Referring Provider Surgery; Visit Provider Surgery
PROC: 0HTU0ZZ Resection of Left Breast, Open Approach (ICD-10-PCS; CPT 19301; principal; 2019-12-19 11:45)
DX: C50.912 Malignant neoplasm of unspecified site of left female breast (principal); I10 Essential (primary) hypertension; Z17.0 Estrogen receptor positive status [ER+]; E66.01 Morbid (severe) obesity due to excess calories; Z68.41 Body mass index [BMI] 40.0-44.9, adult
CPT/HCPCS: 19301; J0690; J1100; J2405; J2704; J3010

== ENCOUNTER → 2020-02-05 13:05 | Outpatient (CLI) | payer MEDICARE, SELFPAY | PROVIDERS: PCP Student in an Organized Health Care Education/Training Program; Referring Provider Internal Medicine; Visit Provider Internal Medicine | DX: M85.852 Other specified disorders of bone density and structure, left thigh (principal); Z78.0 Asymptomatic menopausal state; C50.919 Malignant neoplasm of unspecified site of unspecified female breast; Z82.62 Family history of osteoporosis | CPT/HCPCS: 77080 ==

== ENCOUNTER → 2020-07-16 10:09 | Outpatient (CLI) | payer MEDICARE, SELFPAY ==
--- NOTE | 2020-07-16 | DI.MG.S_ITS ---
BILATERAL DIGITAL SCREENING MAMMOGRAM 3D/2D WITH CAD POST LUMPECTOMY: 07/16/2020 CLINICAL: Routine screening. Personal history of left breast cancer. Comparison is made to exams dated: 12/11/2019 breast MRI, 08/28/2019 mammogram, 08/14/2019 mammogram, and 07/14/2019 mammogram - [facility]. There are scattered fibroglandular elements in both breasts. Current study was also evaluated with a Computer Aided Detection (CAD) system. There is a stable benign focal asymmetry in the right breast. There also are stable benign calcifications in the right breast. Additionally, there are benign calcifications in the left breast. Additionally, there also are benign post operative findings and biopsy clip in the left breast. No significant masses, calcifications, or other findings are seen in either breast. There has been no significant interval change. IMPRESSION: BENIGN There is no mammographic evidence of malignancy. A 1 year screening mammogram is recommended. This exam was interpreted at Station ID: [id number]. NOTE: For mammograms, a report in lay terms will be sent to the patient. Approximately 15% of breast malignancies will not be visualized mammographically. In the management of a palpable breast mass, a negative mammogram must not discourage biopsy of a clinically suspicious lesion. Electronically Signed By: Mimi blackwood/les:07/16/2020 12:06:37 copy to: PILI RODRIGUEZ letter sent: Normal Exam ACR BI-RADS Category 2: Benign Finding(s) 3342F
== END ==
PROVIDERS: PCP Student in an Organized Health Care Education/Training Program; Referring Provider Student in an Organized Health Care Education/Training Program; Visit Provider Student in an Organized Health Care Education/Training Program
DX: Z12.31 Encounter for screening mammogram for malignant neoplasm of breast (principal)
CPT/HCPCS: 77063; 77067

== ENCOUNTER → 2020-12-31 09:42 | Outpatient (CLI) | payer MEDICARE, SELFPAY ==
[2020-12-31 10:34] LABS: COVID19 -Nasal RAPID Negative (Negative)
== END ==
PROVIDERS: PCP Student in an Organized Health Care Education/Training Program; Visit Provider Surgery
DX: Z20.822 Contact with and (suspected) exposure to COVID-19 (principal)
CPT/HCPCS: 87635; C9803

== ENCOUNTER 2021-01-01 06:43 | Day surgery (SDC) | payer MEDICARE, SELFPAY ==
[2021-01-01] VITALS (7 sets, daily range): BP systolic 106–130; BP diastolic 44–75; PULSE 52–65; RESP 14–16; TEMP 36.2–36.3; O2SAT 98–99; BMI 39.8
--- NOTE | 2021-01-01 | PATH_ITS ---
[facility] Accession Number: [id number] . 01 Material submitted: . body - POLYP @55CM . 02 Diagnosis: Polyp at 55 cm: Multiple (approximately four) portions of tubular adenoma. Superficial portion of colorectal mucosa x 1 with hyperplastic mucosal features. [facility] 01/06/2021 1433 Local . 02 Electronically signed: . Lianna Peña MD, Pathologist NPI- [id number] . 01 Gross description: . The specimen is received in formalin labeled polyp at 55 cm and consists of multiple de la torre-pink fragments of soft tissue, measuring 1.5 x 1.0 x 0.5 cm in aggregate. The largest fragment is bisected. The specimen is filtered and entirely submitted in cassette A1. ([id number]) /[facility] 01/02/2021 1817 Local . 02 Pathologist provided ICD-10: R19.5, K63.5 . 02 CPT . 015433 Performed at: 01 [facility] [address], [place], [place] [id number] MD Amador Pierre MD Phone: [phone] Performed at: 02 [facility] [address] [place], [place] [id number] MD Zunilda Coreas MD Phone: [phone]
[2021-01-01] MEDS: SODIUM CHLORIDE 0.9% 1,000 ML 200 ML IV (07:23)
--- NOTE | 2021-01-01 07:42 | PM.PREOP ---
Pre-operative Note COVID-19 COVID-19 status: Negative Result date/Date tested (Pos, Neg/Pending): 12/31/20 Interval Note History & Physical reviewed/Exam performed by Physician: Yes Changes to H&P: No ASA Class (for procedural sedation): III
--- NOTE | 2021-01-01 07:54 | PM.OP.ENDO ---
Operative Date/Time/Diagnoses Date of procedure: 01/01/21 Time of procedure: 07:55 Pre-op diagnosis: positive FIT test Post-op diagnosis: other (Large polypoid mass at 55 cm just distal to the splenic flexure, advanced polyp, possible cancer) Procedure & Clinicians Study performed: Colonoscopy Procedural sedation performed by the endoscopist Tattoo of large polyp Hot snare biopsy large polyp Same procedure as scheduled: Yes Indications: Positive FIT test Surgeon: Cristina Chaudhary Procedure Notes SCOAP/Timeout: Performed Procedure in detail: The patient was brought to the room and placed in left lateral decubitus position with all bony prominences padded. A time-out was performed and then the patient was given procedural sedation starting with 4 mg of Versed and 100 mcg of fentanyl. An additional 1 mg of Versed was given during the procedure. Vitals were monitored throughout the procedure and remained stable. Once adequately sedated, the procedure was begun. A rectal exam was performed revealing no abnormalities. The colonoscope was then introduced to the rectum and advanced to the cecum in the usual fashion. The prep was fair. I washed out, and suctioned out as much liquid stool as possible. Anything smaller than 5 mm may have been missed due to the prep. The cecum was identified by the appendiceal orifice, the mucosal tri-fold, and the ileocecal valve. The scope was then retracted while rotating side to side and examining each mucosal fold. At 55 cm just distal to the splenic flexure, a large 3 cm x 4 cm multi lobulated adenomatous appearing mass was seen covering more than 2 folds. It was biopsied with hot snare, and tattooed just proximal and distal to the mass itself. Cautery was used to achieve hemostasis after the biopsy. Good hemostasis was observed. There was a another small polyp about 5 mm just proximal to this mass. There is extensive diverticulosis, with multiple false passages throughout the remainder of the descending and sigmoid colon beginning about 10 cm distal to the mass. At the conclusion of the procedure retroflexion was performed and small grade 1-2 internal hemorrhoids without stigmata of bleeding were seen. The scope was then withdrawn from the rectum the procedure was concluded. The patient tolerated the procedure well and was transferred to the PACU in stable condition. Scope withdrawal time: 15 Sedation minutes: 27 Findings: polyp and possible cancer (Large polyp at 55 cm, biopsied with hot snare, covering more than 2 mucosal fold) Specimen(s): other (Polyp biopsy from 55 cm) Complications: none Impression: Advanced polyp, possible cancer the descending colon just distal to the splenic flexure Post-procedure Recommendations: Other recommendation (Will need to make a follow-up appointment with surgery to discuss colon resection) Follow up: as needed Disposition: PACU
[2021-01-01] MEDS: fentaNYL 250 MCG/5 ML INJ IV (08:00)
[2021-01-01] MEDS: MIDAZOLAM 5 MG/5 ML VIAL IV (08:15)
== END 2021-01-01 09:50 | disposition home or self-care (01) ==
PROVIDERS: PCP Student in an Organized Health Care Education/Training Program; Referring Provider Surgery; Visit Provider Surgery
PROC: 0DJD8ZZ Inspection of Lower Intestinal Tract, Via Natural or Artificial Opening Endoscopic (ICD-10-PCS; CPT 45378; principal; 2021-01-01 07:45)
DX: D12.6 Benign neoplasm of colon, unspecified (principal); K57.30 Diverticulosis of large intestine without perforation or abscess without bleeding; K64.1 Second degree hemorrhoids; E66.01 Morbid (severe) obesity due to excess calories; Z68.41 Body mass index [BMI] 40.0-44.9, adult
CPT/HCPCS: 45385; 45381; J2250; J3010

== ENCOUNTER 2021-03-18 07:18 | Inpatient (IN) | payer MEDICARE, SELFPAY ==
[2021-03-11 12:32] VITALS: BMI 41.1
[2021-03-18] VITALS (20 sets, daily range): BP systolic 93–148; BP diastolic 48–103; PULSE 60–86; RESP 11–18; TEMP 35.7–36.9; O2SAT 94–99; BMI 41.1
--- NOTE | 2021-03-18 | PATH_ITS ---
[facility] Accession Number: [id number] . 01 Material submitted: . colon - EXTENDED RIGHT COLON . 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 SSA is present 4.0 cm from the distal resection margin and greater than 10 cm from the proximal resection margin. Proximal and distal resection margins demonstrate no significant histomorphologic abnormality; negative for dysplasia or atypia. Additional findings: Appendix with fibrous obliteration of the tip and otherwise no significant histomorphologic abnormality. Small 5 mm transmural defect with suture 13 cm from the distal stapled margin by gross examination; negative for histologic abnormality. 3 mm tubular adenoma. 8 benign pericolonic lymph nodes (0/8). Tattooing distal to mass. MRV 03/20/2021 1409 Local . 02 Comment: As part of routine quality internship, parts of this case was also reviewed by Dr. Coreas, who agrees with the interpretation. . 02 Electronically signed: . Lianna Peña MD, Pathologist NPI- [id number] . 01 Gross description: . The specimen is received in formalin, labeled extended right colon and consists of a 4.5 cm in length by 2.0 cm in diameter portion of terminal ileum with attached cecum, ascending (colon) measuring 29 cm in length by 3.0 cm in diameter. The serosa is de la torre-pink and smooth, and there is an abundant amount of attached mesenteric adipose tissue and omentum. The attached appendix measures 4.5 cm in length by 0.5 cm in diameter and displays a de la torre-pink smooth serosa, a de la torre mucosa, and a lumen measuring 0.3 cm in diameter. Opening reveals a 3.0 x 1.5 x 0.6 cm de la torre-pink polypoid mass located 4.0 cm from the distal stapled margin and greater than 10 cm from the proximal stapled margin. Sectioning reveals no extension into the muscularis. The mass is located greater than 2 cm from the nearest mesenteric margin. There is a 4.5 x 3.5 cm area of black submucosal tattooing distal to the mass, coming to within 0.2 cm from the nearest (distal) margin. Also identified is a 0.3 x 0.3 x 0.2 cm de la torre-pink sessile polyp within the ascending colon with no extension into the muscularis propria. The remaining mucosa is de la torre-pink with normal to attenuated mucosal folds, and the wall thickness ranges from 0.1-0.3 cm. Sectioning through the attached adipose tissue reveals multiple de la torre-pink candidate lymph nodes ranging from 0.2-0.8 cm. There is a 0.5 x 0.2 cm transmural defect with undesignated suture material located 13 cm from the distal stapled margin. Continuous Improvement Black Belt sections are submitted. . A1: Proximal stapled margin, community relations representative perpendicular sections (blue). A2: Distal stapled margin, community relations representative perpendicular sections (black). A3-A6: Polypoid mass, entirely submitted. A7: Closest mesenteric margin, community relations representative perpendicular section (black). A8: Additional sessile polyps. A9: Appendix, central cross sections and bisected tip. A10: Transmural defect (blue). A11: Intact candidate lymph nodes. A12: One trisected lymph node. A13: Continuous Improvement Black Belt submucosal tattooing. ([id number]) /MRV 03/19/2021 1227 Local . 02 Pathologist provided ICD-10: D12.6 . 02 CPT . 730550 Performed at: 01 [facility] [address] [place] [address], [place], [place] [id number] MD Amador Pierre MD Phone: [phone] Performed at: [facility] [id number] [facility] [place], [place] [id number] MD Zunilda Coreas MD Phone: [phone]
[2021-03-18] MEDS: LACTATED RINGERS 1,000 ML 42 ML IV ×3 (07:59→13:13)
[2021-03-18] MEDS: ACETAMINOPHEN 325 MG TABLET 975 MG PO (07:59)
[2021-03-18] MEDS: GABAPENTIN 300 MG CAPSULE PO ×2 (07:59→20:50)
--- NOTE | 2021-03-18 08:43 | PM.PREOP ---
Pre-operative Note COVID-19 COVID-19 status: Negative Result date/Date tested (Pos, Neg/Pending): 03/17/21 Interval Note History & Physical reviewed/Exam performed by Physician: Yes Changes to H&P: No H&P completed within 30 days and has changed as indicated here:: I discussed the risks of bleeding, infection, intestinal leakage, heart or breathing problems with her. I may attempt repair of the hernia near her umbilicus depending on my port placements. All questions were answered.
[2021-03-18] MEDS: PIPERACILLIN/TAZO 3.375 GM in SODIUM CHLORIDE 0.9% 100 ML 200 ML IV (09:15)
--- NOTE | 2021-03-18 10:04 | SUR.OPER ---
Lithotomy on padded OR bed. [place] Pad Positioner under torso. Head on pillow, arms padded and tucked at sides. Legs secured in padded yellow fins stirrups.
[2021-03-18] MEDS: BUPIVACAINE 0.5% (PF) VIAL 30 ML INJ (10:57)
[2021-03-18] MEDS: PIPERACILLIN/TAZO 3.375 GM in SODIUM CHLORIDE 0.9% 100 ML 25 ML IV (12:51)
[2021-03-18] MEDS: HYDROMORPHONE 2 MG INJ IV (14:04)
--- NOTE | 2021-03-18 14:08 | P.OP_ITS ---
Operative Date/Time/Diagnoses Date of procedure: 03/18/21 Time of procedure: 14:09 Pre-op diagnosis: Lesion in the colon not amenable to snare polypectomy. Post-op diagnosis: same Procedure & Clinicians Procedure: mobilization of the splenic flexure. Colonoscopy to the cecum with injection of Holly ink. Open resection extended right hemicolectomy. Same procedure as scheduled: Yes Indications: Patient with a large adenomatous lesion on biopsy that was not amenable to complete removal with the colonoscope. According the report was located distal to the splenic flexure. Surgeon: Flash Baker [employer] Superintendent: Hung Gil Anesthesia Type: General Operative Notes Findings: No visible injection of ink despite report. Lesion was located in the transverse colon and not where indicated in the colonoscopy report. Thus a colonoscope had to be used to find the lesion and inject ink. Closure Type: primary Specimen(s): other (Extended right colon) Estimated Blood Loss (mL): 150 Blood products transfused: none Procedure in detail: The patient is placed supine on the operating room table and underwent general endotracheal anesthesia. She was put in low lithotomy with appropriate padding and prepped and draped in the usual fashion. A Szymanski had been placed. Small incision was made above the umbilicus and carried down under direct vision into the peritoneal cavity. Stay sutures of 0 Vicryl were placed in the fascia. A 12 mm Batres port was inserted. The abdomen is insufflated. Examination revealed a large amount of omentum within the abdominal cavity. I could not see any evidence of an ink injection. Two additional ports were placed 1 in the left abdomen at about the level the umbilicus and 1 in the upper mid abdomen. The patient is quite large and her midline is skewed inferiorly by her pannus. I began by mobilizing the left col on and splenic flexure using LigaSure device. In so doing I could not identify any evidence of an ink injection. I lifted the omentum and examined the transverse colon. There was no evidence of an ink injection here either. After further mobilization near the spleen I decided to perform a colonoscopy. A bowel clamp was placed through the umbilical port site after removing the Batres cannula. ItWas placed across the transverse colon. Colonoscope was inserted and advanced. Due to manipulation the clamp must have come off because I was able to reach the cecum. Patient had extensive sigmoid diverticulosis. I slowly backed the colonoscope out suctioning gas as best I could. Identified the lesion which was actually in the transverse colon and not the descending colon as reported. There was a small polyp just proximal to it. There Was no ink in the area visible therefore I injected 3 areas with ink well distal to the lesion The scope was then removed. No other lesion was seen. The abdomen was now quite distended with air and I could no longer visualize anything due to the distension therefore the port sites were all removed and an open operation was performed. I decided to remove more than just the polyp due to the ominous look it had through the colonoscope. It was highly suspicious for malignancy therefore I chose to a cancer operation. I made an incision by Connecting the upper and lower port sites and extended the incision down through the umbilicus where a hernia had been noted preoperatively. I gained exposure and made a colotomy in the transverse colon to suction as much fair as I could. I evacuated some of the air from the small bowel into the colon and the VAC UA did it through this colotomy. There was no spillage. A pursestring was tried aroun d the opening to seal it. I divided the attachments of the right colon to the sidewall and mobilized the colon medially. I also divided the attachments at the splenic flexure. I still not seen the ink however. Further evaluation the transverse colon revealed the ink distal to the middle of the transverse colon. We divided the transverse colon using a WALDEMAR stapling device just distal to the ink which had been placed well beyond the lesion. We divided the small bowel at the terminal ileum and then after mobilizing the mesentery divided it using the LigaSure or. Palpable vessels were ligated as well using 2 0 silk ties. Most of these were doubly ligated. The specimen was detached removed and opened and it contained the abnormality we sought. Further mobilization of the descending and splenic flexure was required in order to bring the transverse colon easily into the wound. I then created a kejr-[id number] anastomosis small bowel to transverse colon using a WALDEMAR stapling device. The defect created by it was closed with a running 3-0 PDS and seromuscular 3-0 silk sutures inverting this line. Prior to this closure the stay internal staple line was examined and there was no bleeding and appeared to be adequate. A few 3-0 silk sutures were also used to bring the colon and small bowel together just distal to the end of the staple line. The defect in the mesentery was closed with [id number] 3- 0 Vicryl. The abdomen is copiously irrigated and suctioned free of fluid. The anastomosis was tested and there was no visible leak and air and fluid passed easily across the anastomosis. The fascia was closed with interrupted figure of 8 0 0 PDS. I chose to do this because the patient has a diastasis recti the and her fascia is rather lax. I was concerned if I used a running suture line it would pull through in the whole line would open. The subQ was irrigated.. A drain was placed in the base of the incision just above the fascia and brought out through a separate stab incision inferior to the wound and secured with a 3- 0 nylon. SubQ was closed with interrupted 3-0 Vicryl. This was done loosely. The skin was closed with giuseppe and a dressing was applied. Patient was awakened and taken the recovery area in good condition. Complications: none Post-operative Condition: stable Disposition: PACU
--- NOTE | 2021-03-18 15:16 | SUR.PHASEI ---
Pt transferred to room 220 by this RN in bed on 3L NC oxygen with pain 10/25. SBAR update report given to Kiara Rn and Sheron RN. Bed in low position, call light in reach. Belongings with patient.
[2021-03-18] MEDS: LACTATED RINGERS 1,000 ML 125 ML IV ×2 (16:00→23:35)
--- NOTE | 2021-03-18 22:26 | PC.NURSE ---
Pt arrived back from PACU @ 1515 Resting at intervals through shift. SpO2 94% RA Large abdominal dsg CDI Maxwell drain in place/patent Szymanski cath patent clear urine. IVF infusing as per orders. Tolerating clera liquids. IS to 1200, Call light w/in reach. bed alarm on for pt safety. Continue w/plan of care.
[2021-03-18] MEDS: MORPHINE 4 MG/ML INJ IV (23:34)
[2021-03-19] VITALS (13 sets, daily range): BP systolic 111–147; BP diastolic 52–70; PULSE 61–82; RESP 16–18; TEMP 36.4–37.1; O2SAT 92–96
--- NOTE | 2021-03-19 03:20 | PC.NURSE ---
Pt A and O x 4, VSS, able to sleep. She c/o pain, 5/10 and got good relief from 4 mg IVP MS. Urine output qs and clear and yellow. Dressing is C/D/I. Maxwell drain, < 20 mLs. LS clear, S1, S2.
[2021-03-19] MEDS: PROCHLORPERAZINE 10 MG/2 ML VIAL IV (05:20)
[2021-03-19 08:42] LABS: Add Manual Diff / Slide Review NO; Basophils Absolute Auto 0 /uL (0-100); Basophils Percent Auto 0.1 % (0-2); Eosinophils Absolute Auto 0 /uL (0-450); Hematocrit 37.1 % (36-46); Hemoglobin 12.6 g/dL (12.0-16.0); Lymphocytes Absolute Auto 700 /uL (1100-4500); Lymphocytes Percent Auto 5.1 % (25-40); Mean Corpuscular HGB Conc 33.9 % (30-36); Mean Corpuscular Hemoglobin 30.8 PG (26-34); Monocytes Absolute Auto 700 /uL (0-900); Neutrophils Absolute Auto 13000 /uL (1500-7000); Neutrophils Percent Auto 89.8 % (50-75); Platelet Count 194 X10^3/uL (150-400); Red Blood Cell Count 4.07 X10^6/uL (4.0-5.2); Red Cell Distribution Width 14.1 % (11.6-14.8); White Blood Cell Count 14.4 X10^3/uL (4.5-11.0)
[2021-03-19] MEDS: KETOROLAC 30 MG/ML VIAL 15 MG IV ×2 (09:12→23:00)
[2021-03-19] MEDS: GABAPENTIN 300 MG CAPSULE PO ×2 (09:13→21:24)
[2021-03-19] MEDS: ACETAMINOPHEN 325 MG TABLET 650 MG PO ×2 (09:13→18:54)
[2021-03-19] MEDS: SENNOSIDES 8.6 MG TABLET 17.2 MG PO (09:28)
[2021-03-19] MEDS: ENOXAPARIN 40 MG/0.4 ML SYRINGE SUBCUT ×2 (09:30→21:24)
[2021-03-19] MEDS: PANTOPRAZOLE 40 MG VIAL IV (09:34)
[2021-03-19 09:40] LABS: Alanine Aminotransferase 16 IU/L (<35); Albumin 3.7 g/dL (3.5-5.0); Albumin Globulin Ratio 1.3 (1.0-2.8); Alkaline Phosphatase 77 U/L (38-126); Aspartate Aminotransferase 24 IU/L (14-36); BUN Creatinine Ratio 14.5 (6-22); Bilirubin Total 0.9 mg/dL (0.2-1.3); Blood Urea Nitrogen 9 mg/dL (7-17); Calcium 7.4 mg/dL (8.4-10.2); Carbon Dioxide 23 mmol/L (22-32); Chloride 106 mmol/L (98-107); Estimated Glomerular Filt Rate > 60.0 mL/min (>60); Globulin 2.8 g/dL (1.7-4.1); Glucose 150 mg/dL (80-110); HEMOLYSIS < 15 (0-50); Potassium 4.4 mmol/L (3.4-5.1); Sodium 135 mmol/L (137-145); Total Protein 6.5 g/dL (6.3-8.2)
--- NOTE | 2021-03-19 14:20 | PT.IIE ---
Current Diagnoses Benign neoplasm of colon, unspecified (03/18/21) Surgery Performed Operation Date: 03/18/21 08:45 Actual Procedures p Laparoscopic colon resection w. 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) Breast cancer, left (08/31/19) Bronchitis Chicken pox Constipation Foot pain (2004) Heartburn Knee torn cartilage, right (2004) Measles Mumps Osteoarthritis Plantar warts Pneumonia Rubella Sleep apnea Thin skin Whooping cough Physical Therapy Inpatient Evaluation/Re-Eval M1 PT/OT-IP Prior Functional Status Start: 03/19/21 16:51 Freq: NEEDED Status: Active Protocol: Document 03/19/21 14:20 AB (Rec: 03/19/21 17:04 AB [id number]) Medical Review Prior Functional Status Medical History Reviewed Yes Communication able to make needs known Mobility and Gait pt stated that she is independent with all mobilities and ambulation wtihout AD Social History Household Members spouse Living Arrangements House Number of Floors (Floors) One Floor Number of Stairs To Enter/Railing? 1 step to enter Home Environment High Toilet,Walk in Shower Home Equipment Front Wheel Walker,Four Wheel Walker,Straight Cane,Shower Seat with Backrest,Hand Held Shower,Grab Bars Near Toilet, Grab Bars In Shower Additional Social History Comment pt has an adjustable bed but pt plans to sleep on her lift chair. M2 PT-IP Current Condition Start: 03/19/21 16:51 Freq: NEEDED Status: Active Protocol: Document 03/19/21 14:20 AB (Rec: 03/19/21 17:04 AB [id number]) Physical Therapy Current Condition Current Condition Evaluation Date 03/19/21 Treatment Diagnosis s/p hemicolectomy; difficulty in walking Onset Date 03/18/21 Precautions Abdominal Surgery Precautions Log Roll,Lifting Restrictions, Gait Belt above Incisional Area M3 PT-IP Subjective Start: 03/19/21 16:51 Freq: NEEDED Status: Active Protocol: Document 03/19/21 14:20 AB (Rec: 03/19/21 17:04 [email or web address]) Subjective Physical Therapy Visit Type Type Initial Evaluation Visit Start Time 14:20 Visit Stop Time 14:58 Total Visit Minutes 38 Number of GREEN CHAIN OPERATOR Visits 0 Physical Therapy Visit Comments Patient Comments pt is agreeable to do PT Therapy Pain Assessment Pain When Pain Assessed At Rest Pain Present Pain Present Pain Reported Location abdomen Intensity 2 Scale Used Numeric (0 - 10) Pain Management Techniques Modification of Treatment,Re- positioning,Timing of Activity with Medications M4 PT-IP Mobility and Gait Start: 03/19/21 16:51 Freq: NEEDED Status: Active Protocol: Document 03/19/21 14:20 AB (Rec: 03/19/21 17:04 [email or web address]) PT-Bed Mobility Assessment Rolling Type of Rolling Log Rolling Level of Assist Maximal Assistance Supine to Sit Supine to Sit Maximum Assistance Sit to Supine Sit to Supine Maximum Assistance PT-Transfer Assessment Sit to and From Stand Sit to and from Stand Contact Guard Assistance,1 Person Assistance,Use of Upper Extremities Equipment Transfer Assistive Device Gait Belt,Front Wheeled Walker Orthotic/Prosthetic Devices or Brace: No Transfers Transfer Destination Toilet Transfer Technique ambulated using FWW Transfer Ability Level of Assist Contact Guard Assistance Comments Mobility Comments pt sitting on chair. educated on abdominal precautions. completed sit to stand from the chair CGA and ambulated in room ~ 40 ft using FWW CGA. agreed to use the toilet and ambulated to the toilet using FWW CGA. pt able to complete hygiene care without assistance. ambulated out of the toilet using FWW to the sink CGA and was able to maintain standing SBA while completing handwashing. ambulated towards the bed. completed log roll bed mobility sit<>supine max A and max cues. pt requested to sit up on chair again and completed step transfer using FWW CGA. positioned pt on chair. call light and table placed within reach. ice pack provided. informed nurse regarding pt's mobility level. Gait Assessment Gait Gait Assistance Required: Contact Guard Assist Distance (Feet) 40 Able to Maintain Weight Bearing Status Yes During Gait Assistive Devices Assistive Device Gait Belt,Front Wheeled Walker Orthotic/Prosthetic Devices or Brace: No Gait Deviations General Gait Pattern Decreased Stride Length, Decreased Feet Clearance Factors Limiting Gait Function Factors Limiting Gait Function Decreased Activity Tolerance, Decreased Strength,Limited Range of Motion,Pain PT-Balance Assessment Sitting Balance and Reactions Static Sitting Balance Ability Good Dynamic Sitting Balance Ability Good Standing Balance and Reactions Static Standing Balance Ability Fair Dynamic Standing Balance Ability Fair Device Used FWW M5 PT-IP Objective Assessments Start: 03/19/21 16:51 Freq: NEEDED Status: Active Protocol: Document 03/19/21 14:20 AB (Rec: 03/19/21 17:04 AB [email or web address]) Orientation Orientation/Cognition Level of Alertness Alert Orientation Name,Place,Situation Language Function Ability No Deficits Noted Safety Awareness Understands Safety Issues Memory Description No Deficits Noted Gross Range of Motion Lower Extremity ROM Assessment Within Functional Limits Strength Lower Extremity Strength Assessment Within Functional Limits Coordination Assessment Gross Coordination Gross Coordination WNL Sensation Assessment Sensation Sensation Description Tingling Comments Sensation Comments sides of B feet: stated that this due to her breast CA meds Muscle Tone Muscle Tone WNL Yes M6 PT-IP Treatment Start: 03/19/21 16:51 Freq: NEEDED Status: Active Protocol: Document 03/19/21 14:20 AB (Rec: 03/19/21 17:04 AB [email or web address]) Physical Therapy Treatment Education Education Provided Precautions,Safety M7 PT-IP Assessment and Plan Start: 03/19/21 16:51 Freq: NEEDED Status: Active Protocol: Document 03/19/21 14:20 AB (Rec: 03/19/21 17:04 AB [email or web address]) PT Summary Assessment and Plan Potential Rehabilitation Potential Good Status of Condition at Evaluation Evolving Summary Impairments Pain,ROM,Strength,Balance, Coordination,Sensation,Tone, Cognition,Bed Mobility, Transfers,Gait,Activity Tolerance Assessment Summary pt requiring max A with bed mobility, CGA with transfers and ambulation using FWW at this time. pt has decrease activity tolerance and requires time to complete tasks. pt lives with spouse and spouse will assist pt at home. will continue to assess progress for safe d/c plan. Goals Bed Mobility Goal Independent Transfer Goal Independent,Front Wheeled Walker Gait Goal Independent,Front Wheel Walker Gait Distance 250 Other Goals improve ambulation without AD SBA 250 ft up/down 1 step sBA Days to Meet Goals 10 Frequency of Treatment Frequency Of Treatment Once a Day Treatment Plan Physical Therapy Treatment Plan Bed Mobility Training,Transfer Training,Gait Training, Therapeutic Exercise,Balance Retraining,Post Op Education, Discharge Planning,Hot or Cold Pack,Neuromuscular Re-ed, Coordination Retraining,Manual Therapy Precautions Abdominal Surgery Precautions Log Roll,Lifting Restrictions, Gait Belt above Incisional Area Recommendations To Nursing Amount of Assist Needed 1 Person Assist Discharge Recommendations PT Discharge Recommendations Home with Assistance Transportation Needs at Discharge Private Vehicle
--- NOTE | 2021-03-19 16:36 | CM.IDA ---
Initial DCP Assessment Note Pt is a 75 yo female, resident of [place], now POD#1 from scheduled Lap to Open resection extended right hemicolectomy by DR Baker and Dr Gil. Patient on clears this morning according to MELODY Craig. PT pending. PCP: Cristhian Jimenez Payer: CHELA KIRBY Reviewed chart, reviewed POC w/ MELODY Craig. Patient sleeping soundly and spouse not at bedside currently. RN expects no needs for this patient based on conversation w/spouse today; spouse spry and appears very supportive. Patient plans ton returning home w/family to assist. MELODY Craig anticipating advancement of diet today if patient tolerates. DCP needs unclear at this time. PT pending. Will plan to follow closely as medical POC unfolds. REED Marley Discharge Planning/Care Management CM Discharge Assessment Start: 03/19/21 16:32 Freq: Status: Active Protocol: Document 03/19/21 16:32 DEONTE (Rec: 03/19/21 16:35 DEONTE [id number]) Discharge Planning Assessment Assigned Advanced Practice Nurse Psychotherapist REED Shafer DPOA/Assigned Designee Name Jack Cool, spouse Contact Information [phone] Advance Directives? Yes Advance Directives on File Yes History Provided By Patient,Medical Record Prior Living Arrangements House Household Members spouse Independent with ADL's Yes Is patient alert and oriented? Yes Needs Assistance With Home Chores / Shopping Barriers to Discharge No Comment Not at this time Discharge Plan Home Transportation Arrangement Family Referrals Initiated None needed Additional Comment At this time
[2021-03-19] MEDS: LACTATED RINGERS 1,000 ML 125 ML IV (18:52)
--- NOTE | 2021-03-19 18:53 | P.PN_ITS ---
Subjective Subjective Interval history: Patient feeling okay. Has some pain in increases with coughing. Has been using a pillow. She has been out of bed in a chair and her Szymanski has been discontinued. Exam Vital Signs (past 8 hours): - 03/19/21 12:10 03/19/21 13:00 03/19/21 14:00 Temperature Pulse Rate 67 77 Respiratory Rate 18 16 Blood Pressure 130/70 Pulse Oximetry 95 95 93 03/19/21 15:30 03/19/21 17:00 Temperature 97.6 F Pulse Rate 66 Respiratory Rate 18 Blood Pressure 111/52 L Pulse Oximetry 96 96 Oxygen Delivery Method Room Air Oxygen Flow Rate 0 Narrative Exam Narrative: Cooperative in no apparent distress. Lungs are clear to auscultation. Fair effort. Heart regular rate and rhythm. Abdomen is protuberant. Dressings are dry and intact. Drainage noted. I suspect there is an error in 1 of the values. Objective Labs Result Diagrams: 03/19/21 08:08 03/19/21 08:08 Labs: Laboratory Results - last 24 hr 03/19/21 03/19/21 08:08 08:08 WBC 14.4 H RBC 4.07 Hgb 12.6 Hct 37.1 MCV 91.0 MCH 30.8 MCHC 33.9 RDW 14.1 Plt Count 194 Neut % (Auto) 89.8 H Lymph % (Auto) 5.1 L Jasper % (Auto) 5.0 Eos % (Auto) 0.0 L Baso % (Auto) 0.1 Neut # (Auto) 87694 H Lymph # (Auto) 700 L Jasper # (Auto) 700 Eos # (Auto) 0 Baso # (Auto) 0 Sodium 135 L Potassium 4.4 Chloride 106 Carbon Dioxide 23 BUN 9 Creatinine 0.62 Estimated GFR > 60.0 BUN/Creatinine Ratio 14.5 Glucose 150 H Calcium 7.4 L Total Bilirubin 0.9 AST 24 ALT 16 Alkaline Phosphatase 77 Total Protein 6.5 Albumin 3.7 Globulin 2.8 Albumin/Globulin Ratio 1.3 [facility] Medical History (Updated 02/20/21 @ 19:24 by Flash Baker MD) Ankle pain (2004) Anxiety Arthritis 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) Breast cancer, left (08/31/19) Bronchitis Chicken pox Constipation Foot pain (2004) Heartburn Knee torn cartilage, right (2004) Measles Mumps Osteoarthritis Plantar warts Pneumonia Rubella Sleep apnea Thin skin Whooping cough Surgical History (Updated 03/11/21 @ 13:00 by Aura Dickerson RN) Anesthesia complication History of arthroplasty of right knee (2014) History of right knee surgery (2004) History of shoulder surgery (2004) Status post partial mastectomy of left breast (11/22/19) Status post partial mastectomy of left breast (12/19/19) Family History Brother Age: 72 Type II diabetes mellitus Status post knee replacement Son Age: 44 Anxiety and depression Mother Age: 94 Hypertension Osteoporosis Urinary disorder Anemia Hyponatremia Status post knee replacement Gait disturbance Blackout spell Family/Other Urinary disorder Cyst of right breast Kidney stones Father MVA (motor vehicle accident) Sister No problems noted. Social History marital status: household members: spouse occupational status: previously employed Smoking Status: Never smoker alcohol intake: current substance use type: marijuana Assessment & Plan Post-op Postoperative Procedures: Procedures Operation Date: 03/18/21 08:45 Actual Procedure Side Surgeon p Laparoscopic colon resection w. anastomosis,colonoscopy, convert to open Flash Baker MD Postoperative day: 1 Postoperative status: doing well Postoperative plan: routine post-op care Quality VTE Deep Vein Thrombosis/Pulmonary Embolism Present on Admission: No
[2021-03-20] VITALS (10 sets, daily range): BP systolic 135–139; BP diastolic 59–71; PULSE 58–69; RESP 16–18; TEMP 36.1–36.7; O2SAT 92–95
[2021-03-20] MEDS: LACTATED RINGERS 1,000 ML 125 ML IV ×2 (03:14→14:11)
[2021-03-20] MEDS: PANTOPRAZOLE 40 MG VIAL IV (08:09)
[2021-03-20] MEDS: ENOXAPARIN 40 MG/0.4 ML SYRINGE SUBCUT ×2 (08:09→20:23)
[2021-03-20] MEDS: SENNOSIDES 8.6 MG TABLET 17.2 MG PO (08:09)
[2021-03-20] MEDS: GABAPENTIN 300 MG CAPSULE PO ×2 (08:09→20:22)
[2021-03-20] MEDS: KETOROLAC 30 MG/ML VIAL 15 MG IV ×2 (08:10→14:19)
--- NOTE | 2021-03-20 14:43 | PT.IPTN ---
Current Diagnoses Benign neoplasm of colon, unspecified (03/18/21) Surgery Performed Operation Date: 03/18/21 08:45 Actual Procedures p Laparoscopic colon resection w. anastomosis,colonoscopy, convert to open - Flash Baker MD Physical Therapy Treatment Note M2 PT-IP Current Condition Start: 03/19/21 16:51 Freq: NEEDED Status: Active Protocol: Document 03/19/21 14:20 AB (Rec: 03/19/21 17:04 AB [id number]) Physical Therapy Current Condition Current Condition Evaluation Date 03/19/21 Treatment Diagnosis s/p hemicolectomy; difficulty in walking Onset Date 03/18/21 Precautions Abdominal Surgery Precautions Log Roll,Lifting Restrictions, Gait Belt above Incisional Area M3 PT-IP Subjective Start: 03/19/21 16:51 Freq: NEEDED Status: Active Protocol: Document 03/20/21 14:24 SP (Rec: 03/20/21 15:44 SP [id number]) Subjective Physical Therapy Visit Type Type Treatment Note Visit Start Time 14:24 Visit Stop Time 14:43 Total Visit Minutes 19 Number of BOBBIN WINDER TENDER Visits 1 Physical Therapy Visit Comments Patient Comments pt is agreeable to do PT Patient Goals Return home with family to assist her after able to pass BM. Therapy Pain Assessment Pain When Pain Assessed During Mobility Pain Present Pain Present Pain Reported Location abdomen Intensity 3 Scale Used Numeric (0 - 10) Description With Movement Pain Management Techniques Apply Cold,Re-positioning, Timing of Activity with Medications M4 PT-IP Mobility and Gait Start: 03/19/21 16:51 Freq: NEEDED Status: Active Protocol: Document 03/20/21 14:24 SP (Rec: 03/20/21 15:44 SP [id number]) PT-Bed Mobility Assessment Rolling Type of Rolling Log Rolling Level of Assist Standby Assistance Supine to Sit Supine to Sit Standby Assistance,Bedrails Sit to Supine Sit to Supine Standby Assistance,Bedrails Scooting Scooting to Edge of Bed Standby Assistance PT-Transfer Assessment Sit to and From Stand Sit to and from Stand Contact Guard Assistance,1 Person Assistance,Use of Upper Extremities Equipment Transfer Assistive Device Gait Belt,Front Wheeled Walker Orthotic/Prosthetic Devices or Brace: No Transfers Transfer Destination Bed,Chair Transfer Technique ambulated using FWW, 4WW Transfer Ability Level of Assist Standby Assistance,Use of Upper Extremities Comments Mobility Comments Pt seated in chair w/ LEs elevated when arrived. Pt required assist for lowering leg rest of chair. Scoot to EOchair, sit>stand sBA with use of BUEs on chair arms to FWW. Gait further distance into hallway approx 350 ft using FWW room to PF step, completed CGA self repositioning FWW on/off step and back to room and returned to chair, cued for position back fully to chair with her then reach back to sit SBA. BOBBIN WINDER TENDER provided education for proper brake mgt pre mobility using 4WW with reminders before standing. Pt ambulated into hallway 160 ft using 4WW, good controlled pacing contact for comfort less abdomen discomfort without AD, reviewed on grasp of brakes for slower pacing if needed on in/decline, pt locks but able to squeeze brakes after education. Pt completed stand< >L sidelying<>supine with use of BUE on bed rails for self locomotion demonstrated alot of effort but able to complete . Pt states sleeps in a recline at home so won't need to perform bed mobility. Pt is ok to return home when medically stable with her to assist her. Gait Assessment Gait Gait Assistance Required: Contact Guard Assist Distance (Feet) 350 Able to Maintain Weight Bearing Status Yes During Gait Assistive Devices Assistive Device Gait Belt,Front Wheeled Walker ,4 Wheeled Walker Orthotic/Prosthetic Devices or Brace: No Gait Deviations General Gait Pattern Antalgic Factors Limiting Gait Function Factors Limiting Gait Function Decreased Activity Tolerance, Decreased Strength,Limited Range of Motion,Pain,Poor Safety Awareness Comments Gait Comments Pt requires contact support on FWW/ 4WW for abdominal bracing assist and pain mgt, stable no deviations, step over stepping. She is progressing distance with therapy and nursing. Stair Climbing Assessment Evaluation Level of Assist On Stairs Contact Guard Assistance Devices Stair Climbing Assistive Devices Front Wheel Walker Technique/Endurance Stair Climbing Direction Ascend and Descend Stair Climbing Technique Step to Step Number of Steps Climbed 1 Stair Climbing Set # Repetitions (reps) 1 Comments Stair Climbing Comments step to 1 PF step using FWW to assimulate enterance to home, CGA gait belt and FWW 4 points plancement on PF step for safety with mask donned, stable/ no deviations or LOB. PT-Balance Assessment Sitting Balance and Reactions Static Sitting Balance Ability Normal Dynamic Sitting Balance Ability Good Standing Balance and Reactions Static Standing Balance Ability Good Dynamic Standing Balance Ability Good Device Used FWW, 4WW M5 PT-IP Objective Assessments Start: 03/19/21 16:51 Freq: NEEDED Status: Active Protocol: Document 03/19/21 14:20 AB (Rec: 03/19/21 17:04 AB [id number]) Orientation Orientation/Cognition Level of Alertness Alert Orientation Name,Place,Situation Language Function Ability No Deficits Noted Safety Awareness Understands Safety Issues Memory Description No Deficits Noted Gross Range of Motion Lower Extremity ROM Assessment Within Functional Limits Strength Lower Extremity Strength Assessment Within Functional Limits Coordination Assessment Gross Coordination Gross Coordination WNL Sensation Assessment Sensation Sensation Description Tingling Comments Sensation Comments sides of B feet: stated that this due to her breast CA meds Muscle Tone Muscle Tone WNL Yes M6 PT-IP Treatment Start: 03/19/21 16:51 Freq: NEEDED Status: Active Protocol: Document 03/20/21 14:24 SP (Rec: 03/20/21 15:44 SP [id number]) Physical Therapy Treatment Education Education Provided Precautions,Safety Other Treatments Other Treatment Performed Educated use of pillow over abdomen for coughing and tranfer mobility if needed for abdominal bracing. M7 PT-IP Assessment and Plan Start: 03/19/21 16:51 Freq: NEEDED Status: Active Protocol: Document 03/20/21 14:24 SP (Rec: 03/20/21 15:44 SP [id number]) PT Summary Assessment and Plan Potential Rehabilitation Potential Good Status of Condition at Evaluation Evolving Summary Impairments Pain,ROM,Strength,Balance, Coordination,Sensation,Tone, Cognition,Bed Mobility, Transfers,Gait,Activity Tolerance Progress Towards Goals Progressing Toward Goals,Slow Progress due to Pain Assessment Summary Pt able to complete sit<LR> supine with heavy BUE WB on bed cued complete on side proper log roll, alot effort but able to complete SBA and safety cues abdominal bracing. Transfers SBA with cues for safety AD fully repositioning when backing up to chair. SBA gait in room and hallway using FWW and 4WW (cues as needed for proper use of brakes). Completed stair mgt CGA. Pt lives with spouse and spouse will assist pt at home. Goals Bed Mobility Goal Independent Transfer Goal Independent,Front Wheeled Walker Gait Goal Independent,Front Wheel Walker Gait Distance 250 Other Goals improve ambulation without AD SBA 250 ft up/down 1 step sBA Days to Meet Goals 10 Frequency of Treatment Frequency Of Treatment Once a Day Treatment Plan Physical Therapy Treatment Plan Bed Mobility Training,Transfer Training,Gait Training, Therapeutic Exercise,Balance Retraining,Post Op Education, Discharge Planning,Hot or Cold Pack,Neuromuscular Re-ed, Coordination Retraining,Manual Therapy Other Recommendations and Next Treatment Log roll, bed mobility, Focus transfers LRAD, assess gait w/ SPC Precautions Abdominal Surgery Precautions Log Roll,Lifting Restrictions, Gait Belt above Incisional Area Recommendations To Nursing Amount of Assist Needed Standby Assistance Discharge Recommendations PT Discharge Recommendations Home with Assistance Transportation Needs at Discharge Private Vehicle
[2021-03-20] MEDS: ZOLPIDEM 5 MG TABLET 10 MG PO (22:15)
[2021-03-21] VITALS (9 sets, daily range): BP systolic 136–155; BP diastolic 69–83; PULSE 75–78; RESP 14–18; TEMP 35.8–37.1; O2SAT 94–97
[2021-03-21] MEDS: KETOROLAC 30 MG/ML VIAL 15 MG IV ×2 (01:18→10:32)
[2021-03-21] MEDS: ENOXAPARIN 40 MG/0.4 ML SYRINGE SUBCUT ×2 (09:06→20:10)
[2021-03-21] MEDS: PANTOPRAZOLE 40 MG VIAL IV (09:06)
[2021-03-21] MEDS: SENNOSIDES 8.6 MG TABLET 17.2 MG PO (09:07)
[2021-03-21] MEDS: GABAPENTIN 300 MG CAPSULE PO ×2 (09:07→20:10)
[2021-03-21] MEDS: ACETAMINOPHEN 325 MG TABLET 650 MG PO (09:09)
[2021-03-21] MEDS: DOCUSATE 100 MG CAPSULE PO (09:09)
[2021-03-21] MEDS: LACTATED RINGERS 1,000 ML 100 ML IV (09:11)
--- NOTE | 2021-03-21 11:26 | P.PN_ITS ---
Subjective Subjective Interval history: Feeling OK. Pain controlled. Hd lot of gas and small stool without a suppository. No nausea Exam Vital Signs (past 8 hours): - 03/21/21 05:00 03/21/21 05:35 03/21/21 08:20 Temperature 97.9 F 97.7 F Pulse Rate 78 77 Respiratory Rate 16 16 Blood Pressure 154/83 H 144/78 H Pulse Oximetry 94 96 96 03/21/21 09:00 Temperature Pulse Rate Respiratory Rate Blood Pressure Pulse Oximetry 96 Oxygen Delivery Method Room Air Oxygen Flow Rate 0 Narrative Exam Narrative: Lungs clear. Abdomen protuberant, soft. Incision intact. Drainage serous. 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) Breast cancer, left (08/31/19) Bronchitis Chicken pox Constipation Foot pain (2004) Heartburn Knee torn cartilage, right (2004) Measles Mumps Osteoarthritis Plantar warts Pneumonia Rubella Sleep apnea Thin skin Whooping cough Surgical History (Updated 03/11/21 @ 13:00 by Aura Dickerson RN) Anesthesia complication History of arthroplasty of right knee (2014) History of right knee surgery (2004) History of shoulder surgery (2004) Status post partial mastectomy of left breast (11/22/19) Status post partial mastectomy of left breast (12/19/19) Family History Brother Age: 72 Type II diabetes mellitus Status post knee replacement Son Age: 44 Anxiety and depression Mother Age: 94 Hypertension Osteoporosis Urinary disorder Anemia Hyponatremia Status post knee replacement Gait disturbance Blackout spell Family/Other Urinary disorder Cyst of right breast Kidney stones Father MVA (motor vehicle accident) Sister No problems noted. Social History marital status: household members: spouse occupational status: previously employed Smoking Status: Never smoker alcohol intake: current substance use type: marijuana Assessment & Plan Post-op Postoperative Procedures: Procedures Operation Date: 03/18/21 08:45 Actual Procedure Side Surgeon p Laparoscopic colon resection w. anastomosis,colonoscopy, convert to open Flash Baker MD Postoperative day: 3 Postoperative status: doing well Postoperative status narrative: doing well Postoperative plan narrative: Advance diet. Continue to mobilize. Drain was removed by me. Labs in the AM Quality VTE Deep Vein Thrombosis/Pulmonary Embolism Present on Admission: No
--- NOTE | 2021-03-21 11:34 | PM.PNPO.1 ---
Subjective Subjective Date Patient Seen: 03/20/21 Time Patient Seen: 21:00 Interval history: Late entry. Patient seen yessterdy late. Ptient feels like she has to pss gas but has only belched. She had one episode of emesis erly today but that was actuallly triggered by a coughing spell. She has been up amulating 4 times today and has been up in the chair. Exam Vital Signs (past 8 hours): - 03/21/21 05:00 03/21/21 05:35 03/21/21 08:20 Temperature 97.9 F 97.7 F Pulse Rate 78 77 Respiratory Rate 16 16 Blood Pressure 154/83 H 144/78 H Pulse Oximetry 94 96 96 03/21/21 09:00 Temperature Pulse Rate Respiratory Rate Blood Pressure Pulse Oximetry 96 Oxygen Delivery Method Room Air Oxygen Flow Rate 0 Narrative Exam Narrative: dressings dry and intact. Drainage with slight blood tinge. Lungs improving effort. Clear. 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) Breast cancer, left (08/31/19) Bronchitis Chicken pox Constipation Foot pain (2004) Heartburn Knee torn cartilage, right (2004) Measles Mumps Osteoarthritis Plantar warts Pneumonia Rubella Sleep apnea Thin skin Whooping cough Surgical History (Updated 03/11/21 @ 13:00 by Aura Dickerson RN) Anesthesia complication History of arthroplasty of right knee (2014) History of right knee surgery (2004) History of shoulder surgery (2004) Status post partial mastectomy of left breast (11/22/19) Status post partial mastectomy of left breast (12/19/19) Family History Brother Age: 72 Type II diabetes mellitus Status post knee replacement Son Age: 44 Anxiety and depression Mother Age: 94 Hypertension Osteoporosis Urinary disorder Anemia Hyponatremia Status post knee replacement Gait disturbance Blackout spell Family/Other Urinary disorder Cyst of right breast Kidney stones Father MVA (motor vehicle accident) Sister No problems noted. Social History marital status: household members: spouse occupational status: previously employed Smoking Status: Never smoker alcohol intake: current substance use type: marijuana Assessment & Plan Post-op Postoperative Procedures: Procedures Operation Date: 03/18/21 08:45 Actual Procedure Side Surgeon p Laparoscopic colon resection w. anastomosis,colonoscopy, convert to open Flash Baker MD Postoperative day: 2 Postoperative status narrative: doing as expected. Activity more than expected. Postoperative plan narrative: continue present care. Will check wound and remove drain tomorrow. Quality VTE Deep Vein Thrombosis/Pulmonary Embolism Present on Admission: No
--- NOTE | 2021-03-21 11:46 | PT.IPTN ---
Current Diagnoses Benign neoplasm of colon, unspecified (03/18/21) Surgery Performed Operation Date: 03/18/21 08:45 Actual Procedures p Laparoscopic colon resection w. anastomosis,colonoscopy, convert to open - Flash Baker MD Physical Therapy Treatment Note M2 PT-IP Current Condition Start: 03/19/21 16:51 Freq: NEEDED Status: Active Protocol: Document 03/19/21 14:20 AB (Rec: 03/19/21 17:04 AB [id number]) Physical Therapy Current Condition Current Condition Evaluation Date 03/19/21 Treatment Diagnosis s/p hemicolectomy; difficulty in walking Onset Date 03/18/21 Precautions Abdominal Surgery Precautions Log Roll,Lifting Restrictions, Gait Belt above Incisional Area M3 PT-IP Subjective Start: 03/19/21 16:51 Freq: NEEDED Status: Active Protocol: Document 03/21/21 11:28 CLB (Rec: 03/21/21 11:59 CLB [id number]) Subjective Physical Therapy Visit Type Type Treatment Note Visit Start Time 11:28 Visit Stop Time 11:46 Total Visit Minutes 18 Number of FIRE SPRINKLER FITTER Visits 2 Physical Therapy Visit Comments Patient Comments pt is agreeable to do PT Therapy Pain Assessment Pain When Pain Assessed During Mobility Pain Present Pain Present Pain Reported M4 PT-IP Mobility and Gait Start: 03/19/21 16:51 Freq: NEEDED Status: Active Protocol: Document 03/21/21 11:28 CLB (Rec: 03/21/21 11:59 CLB [id number]) PT-Bed Mobility Assessment Rolling Type of Rolling Log Rolling Level of Assist Standby Assistance Supine to Sit Supine to Sit Standby Assistance,Head of Bed Elevated Sit to Supine Sit to Supine Standby Assistance,Head of Bed Elevated Scooting Scooting to Edge of Bed Standby Assistance PT-Transfer Assessment Sit to and From Stand Sit to and from Stand Standby Assistance Equipment Transfer Assistive Device Gait Belt,Front Wheeled Walker Orthotic/Prosthetic Devices or Brace: No Transfers Transfer Destination Bed,Chair Transfer Technique ambulated with 4WW Transfer Ability Level of Assist Standby Assistance,Use of Upper Extremities Comments Mobility Comments Pt up in room with BARREL DEDENTING MACHINE OPERATOR, pt ambulated in mccarthy ~550ft w/4WW /SBA. Pt returned to room ambulating w/o AD with decreased foot clearance and antalgic gait. Pt ageed to use 4WW for gait at this time. Pt performed sit-supine using LR SBA and able to get to EOB using LR SBA, pt stated it is easier today. Pt then transferred from bedside to chair SBA w/o AD. Pt left in chair with all needs within reach and present. Gait Assessment Gait Gait Assistance Required: Standby Assistance Distance (Feet) 550 Able to Maintain Weight Bearing Status Yes During Gait Assistive Devices Assistive Device Gait Belt,4 Wheeled Walker Orthotic/Prosthetic Devices or Brace: No Gait Deviations General Gait Pattern Antalgic Factors Limiting Gait Function Factors Limiting Gait Function Decreased Activity Tolerance, Decreased Strength,Limited Range of Motion,Pain Comments Gait Comments Pt with good pacing with 4WW, steady gait and good safety awareness. PT-Balance Assessment Sitting Balance and Reactions Static Sitting Balance Ability Normal Dynamic Sitting Balance Ability Good Standing Balance and Reactions Static Standing Balance Ability Good Dynamic Standing Balance Ability Good Device Used 4WW M5 PT-IP Objective Assessments Start: 03/19/21 16:51 Freq: NEEDED Status: Active Protocol: Document 03/19/21 14:20 AB (Rec: 03/19/21 17:04 AB [id number]) Orientation Orientation/Cognition Level of Alertness Alert Orientation Name,Place,Situation Language Function Ability No Deficits Noted Safety Awareness Understands Safety Issues Memory Description No Deficits Noted Gross Range of Motion Lower Extremity ROM Assessment Within Functional Limits Strength Lower Extremity Strength Assessment Within Functional Limits Coordination Assessment Gross Coordination Gross Coordination WNL Sensation Assessment Sensation Sensation Description Tingling Comments Sensation Comments sides of B feet: stated that this due to her breast CA meds Muscle Tone Muscle Tone WNL Yes M6 PT-IP Treatment Start: 03/19/21 16:51 Freq: NEEDED Status: Active Protocol: Document 03/20/21 14:24 SP (Rec: 03/20/21 15:44 SP [id number]) Physical Therapy Treatment Education Education Provided Precautions,Safety Other Treatments Other Treatment Performed Educated use of pillow over abdomen for coughing and tranfer mobility if needed for abdominal bracing. M7 PT-IP Assessment and Plan Start: 03/19/21 16:51 Freq: NEEDED Status: Active Protocol: Document 03/21/21 11:28 CLB (Rec: 03/21/21 11:59 CLB [id number]) PT Summary Assessment and Plan Potential Rehabilitation Potential Good Status of Condition at Evaluation Evolving Summary Impairments Pain,ROM,Strength,Balance, Coordination,Sensation,Tone, Cognition,Bed Mobility, Transfers,Gait,Activity Tolerance Progress Towards Goals Progressing Toward Goals Assessment Summary Pt is SBA for all mobility. Pt ambulated in mccarthy ~550ft w/ 4WW/SBA with improved gait quality. Pt trialed gait w/o AD but is unsteady, recommending pt continues using 4WW, pt has 4WW for home use. Pt plans to d/c home with to assist. Goals Bed Mobility Goal Independent Transfer Goal Independent,Front Wheeled Walker Gait Goal Independent,Front Wheel Walker Gait Distance 250 Other Goals improve ambulation without AD SBA 250 ft up/down 1 step sBA Days to Meet Goals 10 Frequency of Treatment Frequency Of Treatment Once a Day Treatment Plan Physical Therapy Treatment Plan Bed Mobility Training,Transfer Training,Gait Training, Therapeutic Exercise,Balance Retraining,Post Op Education, Discharge Planning,Hot or Cold Pack,Neuromuscular Re-ed, Coordination Retraining,Manual Therapy Other Recommendations and Next Treatment Log roll, bed mobility, gait w Focus / LRAD Precautions Abdominal Surgery Precautions Log Roll,Lifting Restrictions, Gait Belt above Incisional Area Recommendations To Nursing Amount of Assist Needed Standby Assistance Discharge Recommendations PT Discharge Recommendations Home with Assistance Transportation Needs at Discharge Private Vehicle
--- NOTE | 2021-03-21 12:12 | CM.DPNOTE ---
Addendum entered by REED Marley 03/22/21 12:23: DC Note: Met w/patient this morning and she was eating from a full plate of breakfast, states she hopes to have a BM today and return home, has no concerns or questions about her DCP. Patient will DC home w/spouse to transport and assist as needed in patient's recovery. Original Note: DCP Note Patient recovering from open colon resection, remains on clears, ambulating in room. Dr Baker intends to chk wound and remove drain tomorrow. Supportive spouse in room. DCP remains home w/family upon DC, will continue to follow in case any DC needs or concerns arise JW
--- NOTE | 2021-03-21 14:32 | PC.NURSE ---
Shift note: pt up to chair most of day, showered and Dr Baker in today and removed abdominal dressing. Per , ok to leave giuseppe open to air. No drainage from abdominal incision noted. Clear fluid filled blister noted on lower abdomen. Drain was removed by Dr Baker. Aleven dressing placed over exit site. Small amount of serosanguinous drainage onto dressing- changed x 1 this afternoon around 2 pm. Pt was able to have a bowel movement today, moderate and soft. Pt reports this helped alleviate the pressure like discomfort she was having in her abdomen prior to the bowel movement. Pt tolerated full liquids for lunch.
[2021-03-21] MEDS: LACTATED RINGERS 1,000 ML 125 ML IV (20:09)
[2021-03-21] MEDS: ZOLPIDEM 5 MG TABLET 10 MG PO (22:29)
[2021-03-22 00:22] VITALS: BP 145/64; PULSE 73; RESP 18; TEMP 36.7; O2SAT 96
[2021-03-22 01:00] VITALS: O2SAT 96
[2021-03-22] MEDS: KETOROLAC 30 MG/ML VIAL 15 MG IV (03:23)
[2021-03-22 03:41] VITALS: BP 142/76; PULSE 75; RESP 18; TEMP 36.4; O2SAT 97
[2021-03-22 04:48] VITALS: O2SAT 97
[2021-03-22 05:52] LABS: Add Manual Diff / Slide Review NO; Basophils Absolute Auto 0 /uL (0-100); Basophils Percent Auto 0.8 % (0-2); Eosinophils Absolute Auto 200 /uL (0-450); Eosinophils Percent Auto 3.9 % (2-4); Hematocrit 33.6 % (36-46); Hemoglobin 11.4 g/dL (12.0-16.0); Lymphocytes Absolute Auto 900 /uL (1100-4500); Lymphocytes Percent Auto 17.4 % (25-40); Mean Corpuscular HGB Conc 33.8 % (30-36); Mean Corpuscular Hemoglobin 30.9 PG (26-34); Mean Corpuscular Volume 91.4 fL (80-100); Monocytes Absolute Auto 400 /uL (0-900); Monocytes Percent Auto 8.2 % (3-14); Neutrophils Absolute Auto 3600 /uL (1500-7000); Neutrophils Percent Auto 69.7 % (50-75); Platelet Count 191 X10^3/uL (150-400); Red Blood Cell Count 3.67 X10^6/uL (4.0-5.2); Red Cell Distribution Width 14.3 % (11.6-14.8); White Blood Cell Count 5.2 X10^3/uL (4.5-11.0)
[2021-03-22 06:00] LABS: BUN Creatinine Ratio 7.1 (6-22); Blood Urea Nitrogen 4 mg/dL (7-17); Calcium 7.5 mg/dL (8.4-10.2); Carbon Dioxide 25 mmol/L (22-32); Chloride 109 mmol/L (98-107); Estimated Glomerular Filt Rate > 60.0 mL/min (>60); Glucose 118 mg/dL (80-110); HEMOLYSIS < 15 (0-50); Potassium 3.9 mmol/L (3.4-5.1); Sodium 137 mmol/L (137-145)
[2021-03-22 07:25] VITALS: BP 145/77; PULSE 67; RESP 18; TEMP 36.1; O2SAT 93
[2021-03-22 09:00] VITALS: O2SAT 93
[2021-03-22] MEDS: ENOXAPARIN 40 MG/0.4 ML SYRINGE SUBCUT (09:44)
[2021-03-22] MEDS: GABAPENTIN 300 MG CAPSULE PO (09:44)
[2021-03-22] MEDS: SENNOSIDES 8.6 MG TABLET 17.2 MG PO (09:45)
--- NOTE | 2021-03-22 10:56 | P.DS_ITS ---
History of Present Illness History of Present Illness Chief complaint: Laparoscopically Assisted Colectomy Narrative: The patient is a woman with a large polyp which was not amenable to colonoscopic removal. Biopsies of this large polyp were benign. She was brought in after an outpatient bowel prep for resection. 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 Pathology pending Morbid obesity with a BMI of 41. History of breast cancer post treatment Acute blood loss anemia secondary to operative blood loss and transient dilution (hematocrit 37 down to 33) Hospital Course: Patient underwent a laparoscopic exploration. The tattooed area of the colon could not be seen and therefore she had a colonoscopy on the table. The lesion actually looked more ominous and cancer like than a benign polyp and therefore I decided to do a cancer operation. Attached to injected at the time of her initial colonoscopy was not visible. Additional tattoo was gerry jaskaran. She Had an extended right hemicolectomy with a [id number] small bowel to transverse colon anastomosis performed Her postoperative course was actually very smooth. Her pain was well controlled. She had several days of nausea and lack of bowel function which ultimately returned. Her diet was advanced and she was discharged on a general diet to follow up in the office. She was given inst ructions how to reach the office and limitations on her activity. Status at Discharge Cognitive/behavioral status at discharge: oriented Functional status at discharge: independent ambulation Overall status at discharge: patient is progressing back to baseline Exam Vital Signs (past 8 hours): - 03/22/21 03:41 03/22/21 04:48 03/22/21 07:25 Temperature 97.6 F 97.0 F L Pulse Rate 75 67 Respiratory Rate 18 18 Blood Pressure 142/76 H 145/77 H Pulse Oximetry 97 97 93 03/22/21 09:00 Temperature Pulse Rate Respiratory Rate Blood Pressure Pulse Oximetry 93 Oxygen Delivery Method Room Air Oxygen Flow Rate 0 Narrative Exam Narrative: Lungs are clear. Abdomen is protuberant soft. The incision is intact. There is no cellulitis. Objective Labs Result Diagrams: 03/22/21 05:06 03/22/21 05:06 Labs: Laboratory Results - last 24 hr 03/22/21 03/22/21 05:06 05:06 WBC 5.2 RBC 3.67 L Hgb 11.4 L Hct 33.6 L MCV 91.4 MCH 30.9 MCHC 33.8 RDW 14.3 Plt Count 191 Neut % (Auto) 69.7 Lymph % (Auto) 17.4 L [place] % (Auto) 8.2 Eos % (Auto) 3.9 Baso % (Auto) 0.8 Neut # (Auto) 3600 Lymph # (Auto) 900 L [place] # (Auto) 400 Eos # (Auto) 200 Baso # (Auto) 0 Sodium 137 Potassium 3.9 Chloride 109 H Carbon Dioxide 25 BUN 4 L Creatinine 0.56 Estimated GFR > 60.0 BUN/Creatinine Ratio 7.1 Glucose 118 H Calcium 7.5 L [facility] Medical History (Updated 02/20/21 @ 19:24 by Flash Baker MD) Ankle pain (2004) Anxiety Arthritis 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) Breast cancer, left (08/31/19) Bronchitis Chicken pox Constipation Foot pain (2004) Heartburn Knee torn cartilage, right (2004) Measles Mumps Osteoarthritis Plantar warts Pneumonia Rubella Sleep apnea Thin skin Whooping cough Surgical History (Updated 03/11/21 @ 13:00 by Aura Dickerson RN) Anesthesia complication History of arthroplasty of right knee (2014) History of right knee surgery (2004) History of shoulder surgery (2004) Status post partial mastectomy of left breast (11/22/19) Status post partial mastectomy of left breast (12/19/19) Family History Brother Age: 72 Type II diabetes mellitus Status post knee replacement Son Age: 44 Anxiety and depression Mother Age: 94 Hypertension Osteoporosis Urinary disorder Anemia Hyponatremia Status post knee replacement Gait disturbance Blackout spell Family/Other Urinary disorder Cyst of right breast Kidney stones Father MVA (motor vehicle accident) Sister No problems noted. Social History marital status: household members: spouse occupational status: previously employed Smoking Status: Never smoker alcohol intake: current substance use type: marijuana Discharge Assessment & Plan Assessment and Plan Assessment: Doing well postop Plan of Treatment: Will see her in the office. Await the pathology report. Discharge Plan Discharge Plan Patient Disposition: Home Provider Discharge Comment: I will notify you when the pathology report is available. You may shower daily. No pool or tub however until after I see you in the office. Taken multiple vitamin with iron daily for at least 2 months. This is to replace any blood you may have lost before or during the operation. You may take Tylenol and or Motrin in addition to the prescription pain medication I have sent to your pharmacy. They will not interact. The prescription pain medicine may constipate you. If so use a laxative like milk of magnesia. Discharge orders & Medications Prescriptions: New oxycodone 5 mg tablet See Rx Instructions .ROUTE .COMPLEX PRN (Reason: painful procedure) Qty: 20 RF: 0 enoxaparin [Lovenox] 40 mg/0.4 mL syringe 40 mg SUBCUT DAILY Qty: 4 RF: 0 Continued zolpidem 10 mg tablet 10 mg PO HS PRN (Reason: sleep) Qty: 30 RF: 4 wtwpgkmixnko-ffkhgpuk-bjceel tablet 1 tab PO DAILY RF: 0 ascorbic acid (vitamin C) 500 mg capsule 1,000 mg PO .QD RF: 0 cholecalciferol (vitamin D3) 2,000 unit capsule 2,000 unit PO DAILY RF: 0 mecobalamin (vitamin B12) 1,000 mcg tablet,disintegrating 3 mcg SL DAILY RF: 0 prochlorperazine maleate [Compazine] 10 mg tablet 10 mg PO Q8H PRN (Reason: nausea and vomiting) Qty: 10 RF: 0 calcium carbonate-vitamin D3 [Calcium 500 + D] 500 mg(1,250mg) -200 unit Table t 1 tab PO BID RF: 0 Cbd Oil 1 cap sublingual QAM RF: 0 exemestane 25 mg Tablet 25 mg PO DAILY Qty: 90 RF: 3 acetaminophen [Tylenol Extra Strength] 500 mg Tablet 500 mg PO DAILY PRN (Reason: Pain) RF: 0 clonidine HCl 0.1 mg tablet 0.1 mg PO QDAY PRN (Reason: Night sweats) RF: 0 Discontinued neomycin 500 mg tablet 1 g PO TID Qty: 6 RF: 0 erythromycin 250 mg tablet See Rx Instructions PO TID Qty: 12 RF: 0 Follow up/Referrals: Cristhian Jimenez MD [Primary Care Provider] - Flash Baker MD [Physician] - (Call my office and make an appointment to see either me on the April 02. This appointment is to check you out and remove your giuseppe. If you already have an appointment please keep it. If you need to reach a doctor please call our office. If it is after hours listen to the message and you will be instructed how to page the doctor on-call for our practice. Have a pen and paper ready to write the 1 800 number down.) Diet/Activity/Treatments Diet: Diet as Tolerated Activity: Do not lift over 10 lb or strain for the next 5 weeks. You may walk. No other exercise. It is important that you are up and about. Do not drive into your pain-free off medication. Skin/Wound/Dressing Care Report to your healthcare provider any signs of infection, such as:: chills, fever, increased pain, unusual drainage and unusual redness Dressing: You may place a covering on your wound if you so desire but it is not absolutely necessary. Discharge Data Primary Care Provider: Cristhian Jimenez Quality VTE Deep Vein Thrombosis/Pulmonary Embolism Present on Admission: No
--- NOTE | 2021-03-22 11:18 | PT.IPTN ---
Current Diagnoses Benign neoplasm of colon, unspecified (03/18/21) Surgery Performed Operation Date: 03/18/21 08:45 Actual Procedures p Laparoscopic colon resection w. anastomosis,colonoscopy, convert to open - Flash aBker MD Physical Therapy Treatment Note M2 PT-IP Current Condition Start: 03/19/21 16:51 Freq: NEEDED Status: Active Protocol: Document 03/19/21 14:20 AB (Rec: 03/19/21 17:04 AB [id number]) Physical Therapy Current Condition Current Condition Evaluation Date 03/19/21 Treatment Diagnosis s/p hemicolectomy; difficulty in walking Onset Date 03/18/21 Precautions Abdominal Surgery Precautions Log Roll,Lifting Restrictions, Gait Belt above Incisional Area M3 PT-IP Subjective Start: 03/19/21 16:51 Freq: NEEDED Status: Active Protocol: Document 03/22/21 11:18 AW (Rec: 03/22/21 11:42 AW [id number]) Subjective Physical Therapy Visit Type Type Treatment Note Visit Start Time 11:04 Visit Stop Time 11:18 Total Visit Minutes 14 Number of MAINTENANCE PAINTER Visits 0 Physical Therapy Visit Comments Patient Comments pt is agreeable to do PT Therapy Pain Assessment Pain When Pain Assessed During Mobility Pain Present Pain Present Denied Pain M4 PT-IP Mobility and Gait Start: 03/19/21 16:51 Freq: NEEDED Status: Active Protocol: Document 03/22/21 11:18 AW (Rec: 03/22/21 11:42 AW [id number]) PT-Bed Mobility Assessment Rolling Type of Rolling Log Rolling Level of Assist Standby Assistance Supine to Sit Supine to Sit Standby Assistance Sit to Supine Sit to Supine Standby Assistance Scooting Scooting to Edge of Bed Standby Assistance PT-Transfer Assessment Sit to and From Stand Sit to and from Stand Standby Assistance Equipment Transfer Assistive Device Gait Belt,4 Wheeled Walker Orthotic/Prosthetic Devices or Brace: No Transfers Transfer Destination Bed,Chair Transfer Technique Stand Step Pivot Transfer Ability Level of Assist Standby Assistance,Use of Upper Extremities Comments Mobility Comments Pt sitting up in chair as PT arrived. She agreed to get up, standing from the chair SBA. She ambulated in the halls with 4WW a total of 600 feet SBA. On return to the room, she demonstrated SBA bed mobility with good attention to precautions. She then transferred back to the chair SBA without AD. She was left with call light and tray table in reach with her in the room. Gait Assessment Gait Gait Assistance Required: Standby Assistance Distance (Feet) 600 Able to Maintain Weight Bearing Status Yes During Gait Assistive Devices Assistive Device Gait Belt,4 Wheeled Walker Orthotic/Prosthetic Devices or Brace: No Gait Deviations General Gait Pattern Antalgic Factors Limiting Gait Function Factors Limiting Gait Function Decreased Activity Tolerance, Decreased Strength,Limited Range of Motion,Pain Comments Gait Comments Pt with good pacing with 4WW, steady gait and good safety awareness. Stair Climbing Assessment Evaluation Level of Assist On Stairs Standby Assistance Devices Stair Climbing Assistive Devices Left Railing,Right Railing Technique/Endurance Stair Climbing Direction Ascend and Descend Stair Climbing Technique Step to Step Number of Steps Climbed 3 Stair Climbing Set # Repetitions (reps) 1 Comments Stair Climbing Comments Pt states she has B rails for entrance to home. PT-Balance Assessment Sitting Balance and Reactions Static Sitting Balance Ability Normal Dynamic Sitting Balance Ability Good Standing Balance and Reactions Static Standing Balance Ability Good Dynamic Standing Balance Ability Good Device Used 4WW M5 PT-IP Objective Assessments Start: 03/19/21 16:51 Freq: NEEDED Status: Active Protocol: Document 03/19/21 14:20 AB (Rec: 03/19/21 17:04 AB [id number]) Orientation Orientation/Cognition Level of Alertness Alert Orientation Name,Place,Situation Language Function Ability No Deficits Noted Safety Awareness Understands Safety Issues Memory Description No Deficits Noted Gross Range of Motion Lower Extremity ROM Assessment Within Functional Limits Strength Lower Extremity Strength Assessment Within Functional Limits Coordination Assessment Gross Coordination Gross Coordination WNL Sensation Assessment Sensation Sensation Description Tingling Comments Sensation Comments sides of B feet: stated that this due to her breast CA meds Muscle Tone Muscle Tone WNL Yes M6 PT-IP Treatment Start: 03/19/21 16:51 Freq: NEEDED Status: Active Protocol: Document 03/22/21 11:18 AW (Rec: 03/22/21 11:42 AW [id number]) Physical Therapy Treatment Education Education Provided Precautions,Safety M7 PT-IP Assessment and Plan Start: 03/19/21 16:51 Freq: NEEDED Status: Active Protocol: Document 03/22/21 11:18 AW (Rec: 03/22/21 11:42 AW [id number]) PT Summary Assessment and Plan Potential Rehabilitation Potential Good Status of Condition at Evaluation Evolving Summary Impairments Pain,ROM,Strength,Balance, Coordination,Sensation,Tone, Cognition,Bed Mobility, Transfers,Gait,Activity Tolerance Progress Towards Goals Progressing Toward Goals Assessment Summary Pt SBA for all mobility using 4WW. She agrees to continue using 4WW at home for near future. She will be safe to discharge home with assist and use of 4WW once medically stable. Goals Bed Mobility Goal Independent Transfer Goal Independent,Front Wheeled Walker Gait Goal Independent,Front Wheel Walker Gait Distance 250 Other Goals improve ambulation without AD SBA 250 ft up/down 1 step sBA Days to Meet Goals 10 Frequency of Treatment Frequency Of Treatment Once a Day Treatment Plan Physical Therapy Treatment Plan Bed Mobility Training,Transfer Training,Gait Training, Therapeutic Exercise,Balance Retraining,Post Op Education, Discharge Planning,Hot or Cold Pack,Neuromuscular Re-ed, Coordination Retraining,Manual Therapy Other Recommendations and Next Treatment Log roll, bed mobility, gait w Focus / LRAD Precautions Abdominal Surgery Precautions Log Roll,Lifting Restrictions, Gait Belt above Incisional Area Recommendations To Nursing Amount of Assist Needed Standby Assistance Discharge Recommendations PT Discharge Recommendations Home with Assistance Transportation Needs at Discharge Private Vehicle
--- NOTE | 2021-03-22 11:58 | PC.NURSE ---
Discharge note: pt discharged home, Dr Baker in to see pt at bedside. Pt able to eat her breakfast this morning without nausea. Denies pain. IV discontinued. Taught pt how to give self injection of subcutaneous lovenox. Pt did the injection with verbal guidance. Tolerated well. Instructed on medications to continue, medications to discontinue and to merchandise pickup/receiving associate 2 scripts sent to [facility] pharmacy- the lovenox and the oxycodone. Instructed on monitoring self for signs/symptoms of infection, such as fever,chills, increased incision pain,redness,drainage. Instructed on activity level and return appt for Dr Baker. All belongings went with patient. Wheeled to car in wheelchair. Dressing to previous drain site was changed prior to pt departure. Sent home with some gauze and paper tape. driving.
== END 2021-03-22 12:31 | disposition home or self-care (01) | DRG 330 ==
PROVIDERS: Admitting Provider Specialist; PCP Student in an Organized Health Care Education/Training Program; Referring Provider Specialist; Visit Provider Specialist
PROC: 0DTE0ZZ Resection of Large Intestine, Open Approach (ICD-10-PCS; principal; 2021-03-18 08:45)
DX: D12.3 Benign neoplasm of transverse colon (principal); Z68.41 Body mass index [BMI] 40.0-44.9, adult; E66.01 Morbid (severe) obesity due to excess calories; F41.9 Anxiety disorder, unspecified; R11.2 Nausea with vomiting, unspecified; C50.912 Malignant neoplasm of unspecified site of left female breast
CPT/HCPCS: 36415; 44160; 80048; 80053; 82378; 83036; 85025; 87635; 94760; 97116; 97162; 97530; C9803; C9113; J0330; J0780; J1100; J1170; J1650; J1885; J2270; J2405; J2543; J2704; J3010

== ENCOUNTER 2021-03-23 06:08 | Observation (INO) | payer MEDICARE, SELFPAY ==
[2021-03-18 17:38] VITALS: BMI 41.1
[2021-03-23 06:21] VITALS: BMI 41.9
[2021-03-23 06:22] VITALS: BP 146/67; PULSE 68; RESP 16; TEMP 36.2; O2SAT 96
[2021-03-23] MEDS: DEXTROSE 5%-LACTATED RINGERS 1,000 ML 150 ML IV ×2 (06:25→16:59)
--- NOTE | 2021-03-23 06:45 | DI.RAD.S_ITS ---
PROCEDURE: XR ACUTE ABDOMEN SERIES INDICATIONS: Nausea / vomiting TECHNIQUE: One view chest and two views of the abdomen were acquired. COMPARISON: None. FINDINGS: Surgical changes and devices: Midline giuseppe are seen. Left axillary clips are seen. Chest: Diffuse fatty liver infiltration is noted. Heart size is normal. No pleural effusions. No pneumoperitoneum. Abdomen: Mildly dilated of gas-filled small bowel are seen that measure up 3.2 cm on the upright image, numerous air-fluid levels are seen, yet without abril differential air-fluid levels. No suspicious calcifications. Visualized solid organ contours appear normal. Bones: No suspicious bony lesions. Age-appropriate bony degenerative changes are seen. Mild levoconvex scoliotic curvature is noted. IMPRESSION: Dilated loops of small bowel are seen. Postoperative ileus is favored. Small-bowel obstruction is considered to be less likely. If it would be helpful for clinical management decision making, please consider a dedicated CT for further evaluation. If oral contrast is given, there should be a long dwell time (at least 4 hours). Dictated by: Atul Hawk M.D. on 03/23/2021 at 7:44 Approved by: Atul Hawk M.D. on 03/23/2021 at 7:46
[2021-03-23 08:00] VITALS: BP 134/66; PULSE 80; RESP 18; TEMP 37.1; O2SAT 98
--- NOTE | 2021-03-23 08:25 | PM.HP.1 ---
History of Present Illness History of Present Illness Date Patient Seen: 03/23/21 Time Patient Seen: 08:25 Chief complaint: Post-operative N/V Narrative: The patient is a woman who undersent an Extended right hemicolectomy 5 days ago. She was doing remarkably well and was discharged yesterday midday tolerating p.o. without any nausea in ambulating without assistance. She had minimal pain. This morning at 3:00 a.m. but she began to have vomiting and diarrhea. She was told to come back to the hospital where she has been readmitted. She is feeling much better this morning. Her abdomen is little sore from vomiting but otherwise she says it feels okay. She had not taking any pain medication. She had only taken her regular medication. 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) Breast cancer, left (08/31/19) Bronchitis Chicken pox Constipation Foot pain (2004) Heartburn Knee torn cartilage, right (2004) Measles Mumps Osteoarthritis Plantar warts Pneumonia Rubella Sleep apnea Thin skin Whooping cough Surgical History Anesthesia complication History of arthroplasty of right knee (2014) History of right knee surgery (2004) History of shoulder surgery (2004) Status post partial mastectomy of left breast (11/22/19) Status post partial mastectomy of left breast (12/19/19) Family & Social History Family History Brother Age: 72 Type II diabetes mellitus Status post knee replacement Son Age: 44 Anxiety and depression Mother Age: 94 Hypertension Osteoporosis Urinary disorder Anemia Hyponatremia Status post knee replacement Gait disturbance Blackout spell Family/Other Urinary disorder Cyst of right breast Kidney stones Father MVA (motor vehicle accident) Sister No problems noted. Social History: household members spouse Prior Living Arrangements House Safety & Behavioral: Feels Safe in Current Yes Environment Been Physically Hurt or No Threatened By a Person Suicidal Ideation Description None Suicide Plan Description No Plan Tobacco & Substance use: Smoking Status Never smoker alcohol intake current alcohol intake frequency holiday/special occasion Substance Use Type marijuana Meds Home Medications and Allergies Home Medications Medication Instructions Recorded Confirmed Type yfkpshysrtqi-azivfsah-jszjcu tablet 1 tab PO DAILY 06/27/18 03/18/21 History ascorbic acid (vitamin C) 500 mg 1,000 mg PO .QD cap 10/23/18 03/18/21 History capsule cholecalciferol (vitamin D3) 50 2,000 unit PO DAILY 10/23/18 03/18/21 History mcg (2,000 unit) capsule mecobalamin (vitamin B12) 1,000 3 mcg SL DAILY tab 10/23/18 03/18/21 History mcg disintegrating tablet,sublingual acetaminophen 500 mg tablet 500 mg PO DAILY PRN 11/19/19 03/18/21 History (Tylenol Extra Strength) calcium carbonate 500 mg (1,250 1 tab PO BID 06/18/20 03/18/21 History mg)-vitamin D3 200 unit tablet (Calcium 500 + D) Cbd Oil 1 cap SUBLINGUAL QAM 11/12/20 03/18/21 History exemestane 25 mg tablet 25 mg PO DAILY #90 tab 11/12/20 03/18/21 Rx zolpidem 10 mg tablet 10 mg PO HS PRN #30 tab 12/12/20 03/18/21 Rx prochlorperazine maleate 10 mg 10 mg PO Q8H PRN #10 tab 02/19/21 03/18/21 Rx tablet (Compazine) clonidine HCl 0.1 mg tablet 0.1 mg PO QDAY PRN 03/11/21 03/18/21 History enoxaparin 40 mg/0.4 mL 40 mg SUBCUT DAILY #4 ml 03/22/21 Rx subcutaneous syringe (Lovenox) oxycodone 5 mg tablet See Rx Instructions .ROUTE 03/22/21 Rx .COMPLEX PRN #20 tab Allergies Allergy/AdvReac Type Severity Reaction Status Date / Time No Known Drug Allergies Allergy Verified 02/19/21 16:13 Review of Systems Review of Systems Narrative: No cough or cold. Breathing comfortably. No chest pain. A lot of loose stool. No seizures or blackouts. Exam Vital Signs (past 8 hours): - 03/23/21 06:22 03/23/21 08:00 Temperature 97.2 F L 98.7 F Pulse Rate 68 80 Respiratory Rate 16 18 Blood Pressure 146/67 H 134/66 Pulse Oximetry 96 98 Oxygen Flow Rate 2 Narrative Exam Narrative: Cooperative no apparent distress. Vital signs noted. Lungs are clear to auscultation no rales or rhonchi. Heart regular rate and rhythm without murmur gallop. Abdomen is protuberant and soft. It is not distended. The midline incision is intact without cellulitis. Other 2 small wounds on the abdomen are unremarkable. She does have some bruising on the abdominal wall most likely from Lovenox injections. She is alert and oriented. Objective Labs Labs: Laboratory Results - last 24 hr 03/23/21 06:15 Nasal Screen MRSA (PCR) Negative for mrsa Assessment & Plan Assessment and plan (1) Postoperative nausea and vomiting: Status: Acute Assessment & Plan narrative: Patient post right hemicolectomy who was doing fine and discharge but developed nausea and vomiting early this morning. Will keep NPO today. IV fluids. X-rays pending and will be reviewed. DVT prophylaxis to continue. Will give oral meds with supple water. Time Spent With Patient Critical Care time: I spent a total of [] minutes of critical care time on this patient's care today; this time is exclusive of procedural time.
[2021-03-23 08:36] LABS: Add Manual Diff / Slide Review NO; Basophils Absolute Auto 200 /uL (0-100); Basophils Percent Auto 2.1 % (0-2); Eosinophils Absolute Auto 100 /uL (0-450); Eosinophils Percent Auto 0.9 % (2-4); Hematocrit 38.1 % (36-46); Hemoglobin 12.8 g/dL (12.0-16.0); Lymphocytes Absolute Auto 300 /uL (1100-4500); Lymphocytes Percent Auto 3.7 % (25-40); Mean Corpuscular HGB Conc 33.5 % (30-36); Mean Corpuscular Volume 92.6 fL (80-100); Monocytes Absolute Auto 400 /uL (0-900); Monocytes Percent Auto 4.7 % (3-14); Neutrophils Absolute Auto 7300 /uL (1500-7000); Neutrophils Percent Auto 88.6 % (50-75); Platelet Count 218 X10^3/uL (150-400); Red Blood Cell Count 4.11 X10^6/uL (4.0-5.2); Red Cell Distribution Width 14.5 % (11.6-14.8); White Blood Cell Count 8.3 X10^3/uL (4.5-11.0)
[2021-03-23 08:40] LABS: Alanine Aminotransferase 38 IU/L (<35); Albumin 3.8 g/dL (3.5-5.0); Albumin Globulin Ratio 1.2 (1.0-2.8); Alkaline Phosphatase 69 U/L (38-126); Aspartate Aminotransferase 49 IU/L (14-36); BUN Creatinine Ratio 8.1 (6-22); Bilirubin Total 0.8 mg/dL (0.2-1.3); Blood Urea Nitrogen 6 mg/dL (7-17); Calcium 8.6 mg/dL (8.4-10.2); Carbon Dioxide 25 mmol/L (22-32); Chloride 108 mmol/L (98-107); Estimated Glomerular Filt Rate > 60.0 mL/min (>60); Globulin 3.1 g/dL (1.7-4.1); Glucose 151 mg/dL (80-110); HEMOLYSIS < 15 (0-50); Potassium 4.1 mmol/L (3.4-5.1); Sodium 140 mmol/L (137-145); Total Protein 6.9 g/dL (6.3-8.2)
[2021-03-23] MEDS: KETOROLAC 30 MG/ML VIAL 15 MG IV ×2 (09:46→16:59)
[2021-03-23] MEDS: ENOXAPARIN 40 MG/0.4 ML SYRINGE SUBCUT ×2 (09:46→20:33)
--- NOTE | 2021-03-23 11:33 | PC.NURSE ---
Pt denies abdominal pain and nausea; BTs active; bandage to lower abdomen, midline giuseppe open to air and wound well-approximated; pt encouraged to cough/deep breathe; IV fluids infusing; spouse in room
[2021-03-23 12:00] VITALS: BP 112/57; PULSE 63; RESP 17; TEMP 36.6; O2SAT 98
--- NOTE | 2021-03-23 14:41 | CM.DANOTE ---
DCP: Case received, EMR reviewed and met with patient. Introduced self and role. Was able to obtain information from patient regarding her baseline activity status home prior to hospitalization. Patient had been here yesterday, originally, and was discharged home. DCP assessment complete with information currently available. Patient is a 75 year old female who admitted early this morning to the care of the hospitalist team. PCP: Dr. Jimenez. Payer: confirmed: [employer]. Patient came to the hospital secondary to having increased nausea and vomiting from recent post-op, cholectomy, here at the hospital. Patient had been discharged yesterday from the hospital, and had developed an increase in nausea. Patient is here for nausea, and is being hydrated. Met with patient in her room. She is alert and oriented, pleasant. Confirmed that she resides in [place] with her spouse, Jack. He just arrived, and is staying at bedside. She stated, 'he is a good support system. She is independent at home, drives, and uses a four wheel walker at her baseline. P: DCP to continue to follow. Patient should be able to go home when she is medically stable. Marguerite Schulte, RN/[employer] Manager
[2021-03-23 16:00] VITALS: BP 117/70; PULSE 63; RESP 17; TEMP 37.1; O2SAT 94
--- NOTE | 2021-03-23 18:12 | PC.NURSE ---
Addendum entered by Yvette Frank R.N. 03/23/21 19:22: pt's daughter, Carie called for info. pt did consent for this RN to talk to her daughter. Went over XR results and Dr. Baker's plan, pt is on IVF, ambulating in [place] and NPO. Original Note: pt independent in room, sitting in chair. Encouraged pt to ambulate in halls. reports mild 'heart burn'. abd incision with giuseppe, skin edges well approximated. BT tympanic, abd soft.
[2021-03-23 20:25] VITALS: BP 120/58; PULSE 67; RESP 16; TEMP 36.7; O2SAT 93
[2021-03-23 23:35] VITALS: BP 124/59; PULSE 70; RESP 18; TEMP 36.2; O2SAT 96
[2021-03-24] MEDS: KETOROLAC 30 MG/ML VIAL 15 MG IV ×3 (01:04→16:07)
[2021-03-24] MEDS: DEXTROSE 5%-LACTATED RINGERS 1,000 ML 150 ML IV (02:37)
[2021-03-24 05:23] VITALS: BP 134/60; PULSE 64; RESP 16; TEMP 36.3; O2SAT 95
[2021-03-24 08:00] VITALS: BP 131/64; PULSE 61; RESP 17; TEMP 36.6; O2SAT 94
--- NOTE | 2021-03-24 08:38 | PC.NURSE ---
PT SITTING UP IN CHAIR UPON INITIAL ASSESSMENT TALKING ON PHONE-INDICATED SHE WAS HAVING NO DISCOMFORT - INFORMED SHE WAS ABLE TO HAVE TO CLEAR LIQUIDS AND PT HAS TOLERATED WELL WITHOUT C/O NAUSEA OR INCREASED ABD PAIN- STAFF REPORTS SHE AMBULATED SEVERAL TIMES DURING THE NOC SHIFT
[2021-03-24] MEDS: ENOXAPARIN 40 MG/0.4 ML SYRINGE SUBCUT ×2 (09:34→20:30)
[2021-03-24] MEDS: cloNIDine 0.1 MG TABLET PO (09:34)
[2021-03-24 12:00] VITALS: BP 128/66; PULSE 60; RESP 18; TEMP 36.4; O2SAT 95
[2021-03-24] MEDS: ONDANSETRON 4 MG/2 ML INJ IV ×3 (12:27→20:30)
[2021-03-24 12:58] LABS: COVID19 - ADMIT (NP swab/PCR) POSITIVE (Negative)
[2021-03-24 14:16] LABS: Adenovirus F 40/41 Not Detected (Not Detect); Astrovirus Not Detected (Not Detect); Campylobacter Not Detected (Not Detect); Clostridium difficile toxin AB Not Detected (Not Detect); Cryptosporidium Not Detected (Not Detect); Cyclospora cayetanensis Not Detected (Not Detect); Entamoeba histolytica Not Detected (Not Detect); Enteroaggregative E.coli Not Detected (Not Detect); Enteropathogenic E.coli Not Detected (Not Detect); Enterotoxigenic E.coli It/st Not Detected (Not Detect); Giardia lamblia Not Detected (Not Detect); Norovirus GI/GII Not Detected (Not Detect); Plesiomonsa shigelloides Not Detected (Not Detect); Rotavirus A Not Detected (Not Detect); Salmonella Not Detected (Not Detect); Sapovirus Not Detected (Not Detect); Shiga-like toxin-prod E.coli Not Detected (Not Detect); Shigella/Enteroinvasive E.coli Not Detected (Not Detect); Vibrio Not Detected (Not Detect); Vibrio cholerae Not Detected (Not Detect); Yersinia enterocolitica Not Detected (Not Detect)
[2021-03-24 15:52] VITALS: BP 117/59; PULSE 69; RESP 16; TEMP 36.6; O2SAT 93
--- NOTE | 2021-03-24 16:34 | P.PN_ITS ---
Subjective Subjective Date Patient Seen: 03/24/21 Time Patient Seen: 16:34 Interval history: flatus and bowel movement. Minimal incisional abdominal pain. No emesis or fever overnight. Exam Vital Signs (past 8 hours): - 03/24/21 12:00 03/24/21 15:52 Temperature 97.6 F 97.8 F Pulse Rate 60 69 Respiratory Rate 18 16 Blood Pressure 128/66 117/59 L Pulse Oximetry 95 93 Oxygen Delivery Method Room Air Oxygen Flow Rate 0 Narrative Exam Narrative: Gen-Adult female alert and oriented. No acute distress Abdomen-Soft obese non tender Objective Labs Result Diagrams: 03/23/21 06:22 03/23/21 06:22 Labs: Laboratory Results - last 24 hr 03/23/21 03/24/21 12:15 11:50 Stl C. cayetanensis PCR Not detected Stool Rotavirus (PCR) Not detected Stool Adenovirus (PCR) Not detected Stool Astrovirus (PCR) Not detected Stool Cryptosporidium PCR Not detected Stl E.coli Shiga Tox PCR Not detected St Sh/Enteroin Ecoli PCR Not detected Stool E coli O157 PCR Not detected Stl Enterotoxigenic E PCR Not detected Stool EPEC (PCR) Not detected Stl E. histolytica PCR Not detected Stool Giardia Lamblia PCR Not detected Stool Sapovirus (PCR) Not detected Stl P. shigelloides PCR Not detected St Y.enterocolitica PCR Not detected Stool Vibrio (PCR) Not detected Stl Vibrio cholerae PCR Not detected Stl Enteroaggr Ecoli PCR Not detected Stl Norovirus GI/GII PCR Not detected Campylobacter (PCR) Not detected C. 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) Breast cancer, left (08/31/19) Bronchitis Chicken pox Constipation Foot pain (2004) Heartburn Knee torn cartilage, right (2004) Measles Mumps Osteoarthritis Plantar warts Pneumonia Rubella Sleep apnea Thin skin Whooping cough Surgical History Anesthesia complication History of arthroplasty of right knee (2014) History of right knee surgery (2004) History of shoulder surgery (2004) Status post partial mastectomy of left breast (11/22/19) Status post partial mastectomy of left breast (12/19/19) Family History Brother Age: 72 Type II diabetes mellitus Status post knee replacement Son Age: 44 Anxiety and depression Mother Age: 94 Hypertension Osteoporosis Urinary disorder Anemia Hyponatremia Status post knee replacement Gait disturbance Blackout spell Family/Other Urinary disorder Cyst of right breast Kidney stones Father MVA (motor vehicle accident) Sister No problems noted. Social History marital status: household members: spouse occupational status: previously employed Smoking Status: Never smoker alcohol intake: current substance use type: marijuana Assessment & Plan Assessment & Plan narrative: 75F readmitted for ileus sp right hemicolectomy. Has return of bowel function now. Clear liquid this AM if tolerates slowly adva nce. Likely discharge home tomorrow. DC IVF Time Spent With Patient Critical Care time: I spent a total of [] minutes of critical care time on this patient's care today; this time is exclusive of procedural time.
[2021-03-24] MEDS: SODIUM CHLORIDE 0.9% FLUSH 10 ML IV (20:30)
--- NOTE | 2021-03-24 22:15 | PC.NURSE ---
Evening shift note Pt A/Ox4, sitting in the recliner, c/o acid reflux, administered zofran as ordered. VSS, no telemetry, independent in the room, able to make needs known. Called Dr. Gil, pt c/o acid reflux not resolved with zofran, telephone order for OTC omeprazole 20mg, pt had some so was able to take her own medication. Approximately 30 minutes after, pt vomited yellow bile on the floor, assisted pt to shower and cleaned up room, changed recliner and redressed pt abdominal dressing. Gave 2100 meds, pt stated she felt better and was going to sleep. Call light within reach, VSS, will continue to monitor.
[2021-03-24 23:30] VITALS: BP 124/60; PULSE 73; RESP 16; TEMP 36.3; O2SAT 94
[2021-03-25] MEDS: KETOROLAC 30 MG/ML VIAL 15 MG IV ×3 (00:53→16:30)
--- NOTE | 2021-03-25 06:26 | PC.NURSE ---
RLQ drain site presenting with leakage of serous fluid, soiling gown. Dressing changed after cleansing with chlorohexidine swab. Puncture free of redness or any indication of infection. Just serous drainage. Tolerated well.
[2021-03-25] MEDS: PANTOPRAZOLE DR 20 MG TABLET PO (06:40)
[2021-03-25 08:10] VITALS: BP 112/57; PULSE 68; RESP 16; TEMP 36.5; O2SAT 97
[2021-03-25] MEDS: ENOXAPARIN 40 MG/0.4 ML SYRINGE SUBCUT (10:46)
[2021-03-25] MEDS: SODIUM CHLORIDE 0.9% FLUSH 10 ML IV (10:46)
[2021-03-25] MEDS: cloNIDine 0.1 MG TABLET PO (10:46)
[2021-03-25 12:05] VITALS: BP 117/83; PULSE 67; RESP 18; TEMP 36.9; O2SAT 93
[2021-03-25 16:19] VITALS: BP 110/55; PULSE 76; RESP 16; TEMP 36.9; O2SAT 93
--- NOTE | 2021-03-25 18:16 | P.DS_ITS ---
History of Present Illness History of Present Illness Chief complaint: Post-operative N/V Narrative: The patient is a woman who undersent an Extended right hemicolectomy 5 days ago. She was doing remarkably well and was discharged yesterday midday tolerating p.o. without any nausea in ambulating without assistance. She had minimal pain. This morning at 3:00 a.m. but she began to have vomiting and diarrhea. She was told to come back to the hospital where she has been readmitted. She is feeling much better this morning. Her abdomen is little sore from vomiting but otherwise she says it feels okay. She had not taking any pain medication. She had only taken her regular medication. Discharge Providers Provider Date of admission: 03/23/21 06:08 Discharge Date: 03/25/21 Primary care physician: Cristhian Jimenez MD Consults: 03/23/21 08:06 Consult to Discharge Planning Routine Comment: Discharge provider: Flash Baker MD Summary Hospital Course Discharge Diagnosis: COVID positive after being COVID negative. Acute Nausea and vomiting resolved Morbid obesity with a BMI of 41 Hypertension chronic Hospital Course: Patient was admitted and given IV fluids. She very quickly resolved her nausea and vomiting. She continued to have bowel movements. She had her diet advanced and was discharged tolerating a general diet with bowel movements to follow-up in the office. She denied nausea at the time of discharge. 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) Breast cancer, left (08/31/19) Bronchitis Chicken pox Constipation Foot pain (2004) Heartburn Knee torn cartilage, right (2004) Measles Mumps Osteoarthritis Plantar warts Pneumonia Rubella Sleep apnea Thin skin Whooping cough Surgical History Anesthesia complication History of arthroplasty of right knee (2014) History of right knee surgery (2004) History of shoulder surgery (2004) Status post partial mastectomy of left breast (11/22/19) Status post partial mastectomy of left breast (12/19/19) Family History Brother Age: 72 Type II diabetes mellitus Status post knee replacement Son Age: 44 Anxiety and depression Mother Age: 94 Hypertension Osteoporosis Urinary disorder Anemia Hyponatremia Status post knee replacement Gait disturbance Blackout spell Family/Other Urinary disorder Cyst of right breast Kidney stones Father MVA (motor vehicle accident) Sister No problems noted. Social History marital status: household members: spouse occupational status: previously employed Smoking Status: Never smoker alcohol intake: current substance use type: marijuana Discharge Plan Discharge Plan Patient Disposition: Home Provider Discharge Comment: Please refer to your discharge instructions from her last admission. They were written 3 days ago and should still apply. Should you develop shortness of breath or respiratory symptoms or other symptoms that you think needs attention related to being COVID positive you should call your family doctor for advice or go to the emergency room. Discharge orders & Medications Prescriptions: Continued zolpidem 10 mg tablet 10 mg PO HS PRN (Reason: sleep) Qty: 30 RF: 4 prochlorperazine maleate [Compazine] 10 mg tablet 10 mg PO Q8H PRN (Reason: nausea and vomiting) Qty: 10 RF: 0 exemestane 25 mg Tablet 25 mg PO DAILY Qty: 90 RF: 3 acetaminophen [Tylenol Extra Strength] 500 mg Tablet 500 mg PO DAILY PRN (Reason: Pain) RF: 0 clonidine HCl 0.1 mg tablet 0.1 mg PO QDAY PRN (Reason: Night sweats) RF: 0 oxycodone 5 mg tablet See Rx Instructions .ROUTE .COMPLEX PRN (Reason: painful procedure) Qty: 20 RF: 0 enoxaparin [Lovenox] 40 mg/0.4 mL syringe 40 mg SUBCUT DAILY Qty: 4 RF: 0 Follow up/Referrals: Cristhian Jimenez MD [Primary Care Provider] - Flash Baker MD [Physician] - (Please refer to the discharge instruction sheet from her last admission from 3 days ago.) Diet/Activity/Treatments Diet: Diet as Tolerated Diet comment: Try to eat lightly. Activity: No lifting or straining for the next 6 weeks. You may walk. Skin/Wound/Dressing Care Report to your healthcare provider any signs of infection, such as:: chills, fever, increased pain, unusual drainage and unusual redness Discharge Data Primary Care Provider: Cristhian Jimenez Attending Provider: Flash Baker
--- NOTE | 2021-03-25 19:03 | CM.DANOTE ---
1900 Reviewed discharge instructions, answered all questions, pt left via wheelchair with all belongings, PIV removed catheter intact, escorted to private vehicle assisted in to vehicle, no further patient contact.
== END 2021-03-25 19:00 | disposition home or self-care (01) ==
PROVIDERS: Admitting Provider Specialist; PCP Student in an Organized Health Care Education/Training Program; Referring Provider Specialist; Visit Provider Specialist
DX: U07.1 COVID-19 (principal); E66.01 Morbid (severe) obesity due to excess calories; I10 Essential (primary) hypertension; Z68.41 Body mass index [BMI] 40.0-44.9, adult
CPT/HCPCS: 74022; 80053; 85025; 87507; 87635; 87797; 99217; 99218; 99221; 99224; 99231; 99238; C9803; G0378; G0379; J1650; J1885; J2405; J7121

== ENCOUNTER → 2021-06-08 12:36 | Outpatient (CLI) | payer MEDICARE, SELFPAY | PROVIDERS: PCP Student in an Organized Health Care Education/Training Program; Referring Provider Student in an Organized Health Care Education/Training Program; Visit Provider Student in an Organized Health Care Education/Training Program | DX: Z78.0 Asymptomatic menopausal state (principal); M85.851 Other specified disorders of bone density and structure, right thigh; C50.919 Malignant neoplasm of unspecified site of unspecified female breast; Z13.820 Encounter for screening for osteoporosis; Z82.62 Family history of osteoporosis | CPT/HCPCS: 77080 ==

== ENCOUNTER → 2021-07-20 10:14 | Outpatient (CLI) | payer MEDICARE, SELFPAY ==
--- NOTE | 2021-07-20 10:16 | DI.MG.S_ITS ---
BILATERAL DIGITAL SCREENING MAMMOGRAM 3D/2D WITH CAD: 07/20/2021 CLINICAL: Routine screening. Personal history of left breast cancer. Comparison is made to exams dated: 07/16/2020 mammogram, 08/28/2019 mammogram, 08/14/2019 ultrasound, 08/14/2019 mammogram, and 07/14/2019 mammogram - [facility]. There are scattered fibroglandular elements in both breasts. Current study was also evaluated with a Computer Aided Detection (CAD) system. There is a possible developing irregular equal density asymmetry with a spiculated margin in the right breast anterior depth lateral region seen on the craniocaudal view only. This is more prominent. No other significant masses, calcifications, or other findings are seen in either breast. Post surgical changes seen in the left breast are not significantly different. IMPRESSION: INCOMPLETE: NEEDS ADDITIONAL IMAGING EVALUATION The possible developing irregular equal density asymmetry in the right breast is indeterminate. Additional views with possible ultrasound are recommended. This exam was interpreted at Station ID: [id number]. NOTE: For mammograms, a report in lay terms will be sent to the patient. Approximately 15% of breast malignancies will not be visualized mammographically. In the management of a palpable breast mass, a negative mammogram must not discourage biopsy of a clinically suspicious lesion. Electronically Signed By: Mimi blackwood/:07/21/2021 08:59:11 copy to: PILI RODRIGUEZ letter sent: Additional Imaging Needed ACR BI-RADS Category 0: Incomplete [id number]
== END ==
PROVIDERS: PCP Student in an Organized Health Care Education/Training Program; Referring Provider Student in an Organized Health Care Education/Training Program; Visit Provider Student in an Organized Health Care Education/Training Program
DX: Z12.31 Encounter for screening mammogram for malignant neoplasm of breast (principal); Z80.3 Family history of malignant neoplasm of breast
CPT/HCPCS: 77063; 77067

== ENCOUNTER → 2021-09-17 09:13 | Outpatient (CLI) | payer MEDICARE, SELFPAY ==
--- NOTE | 2021-09-17 | DI.MG.S_ITS ---
UNILATERAL RIGHT DIGITAL DIAGNOSTIC MAMMOGRAM 3D/2D WITH ADDITIONAL VIEWS: 09/17/2021 CLINICAL: Additional evaluation requested from prior study. Comparison is made to exams dated: 07/20/2021 mammogram, 07/16/2020 mammogram, and 12/11/2019 breast MRI [facility]. There are scattered fibroglandular elements in right breast. There is a possible 5 mm irregular equal density focal asymmetry in the right breast at 9 o'clock middle depth. This is seen in additional views but is less prominent compared to screening. No other significant masses or calcifications are seen in the breast. IMPRESSION: INCOMPLETE: NEEDS ADDITIONAL IMAGING EVALUATION The possible 5 mm irregular equal density focal asymmetry in the right breast remains indeterminate. An ultrasound is recommended. This was performed immediately following this exam. This exam was interpreted at Station ID: [id number]. NOTE: For mammograms, a report in lay terms will be sent to the patient. Approximately 15% of breast malignancies will not be visualized mammographically. In the management of a palpable breast mass, a negative mammogram must not discourage biopsy of a clinically suspicious lesion. Electronically Signed By: Mimi blackwood/:09/17/2021 09:59:17 copy to: PILI FRIED BI-RADS Category 0: Incomplete 3340F
--- NOTE | 2021-09-17 09:14 | DI.US.S_ITS ---
ULTRASOUND OF RIGHT BREAST: 09/17/2021 CLINICAL: Patient returns today to evaluate an asymmetry in the right breast. Comparison is made to exams dated: 09/17/2021 mammogram, 07/20/2021 mammogram, 07/16/2020 mammogram, 12/11/2019 breast MRI, 07/14/2019 mammogram, and 06/27/2018 mammogram - [facility]. Color flow ultrasound of the right breast was performed. Araiza scale images of the real-time examination were reviewed. There is a 0.3 cm x 0.4 cm x 0.3 cm irregular cystic finding in the right breast at 9 o'clock posterior depth 10 cm from the nipple. This cyst is possibly anechoic and hypoechoic with some internal heterogeniety. Because of its small size, it is difficult to fully characterize. This correlates with mammography findings. Color flow imaging demonstrates that there is no vascularity present. IMPRESSION: PROBABLY BENIGN The 0.4 cm rregular cystic finding in the right breast corresponds to the mammographic finding, most likely is a complicated cyst, and is probably benign. A follow-up right mammogram and an ultrasound in 6 months is recommended to demonstrate stability. Findings and recommendations were conveyed to the patient at time of exam. This exam was interpreted at Station ID: [id number]. Electronically Signed By: Mimi blackwood/:09/17/2021 10:59:45 copy to: PILI RODRIGUEZ letter sent: Followup Recommended Ultrasound BI-RADS: 3 Probably benign
== END ==
PROVIDERS: PCP Student in an Organized Health Care Education/Training Program; Referring Provider Student in an Organized Health Care Education/Training Program; Visit Provider Student in an Organized Health Care Education/Training Program
DX: R92.8 Other abnormal and inconclusive findings on diagnostic imaging of breast (principal)
CPT/HCPCS: 76642; 77065; G0279

== ENCOUNTER → 2022-01-07 10:32 | Outpatient (CLI) | payer MEDICARE, SELFPAY ==
--- NOTE | 2022-01-07 | DI.RAD.S_ITS ---
PROCEDURE: XR FOOT RT 2V INDICATIONS: posterior from bump right heel x6 months, question spur TECHNIQUE: 2 views of the foot were acquired. COMPARISON: None. FINDINGS: Bones: No acute fracture visualized. Pronounced degenerative changes at the medial cuneiform-navicular articulation. A plantar calcaneal spur and an Achilles tendon enthesophyte are present. Soft tissues: No tibiotalar joint effusion. Soft tissue prominence in the region of the Achilles tendon. IMPRESSION: An Achilles tendon enthesophyte is present. No acute osseous abnormality. Dictated by: David Toussaint M.D. on 01/07/2022 at 13:33 Approved by: David Toussaint M.D. on 01/07/2022 at 13:37
== END ==
PROVIDERS: PCP Student in an Organized Health Care Education/Training Program; Referring Provider Podiatrist; Visit Provider Podiatrist
DX: M76.61 Achilles tendinitis, right leg (principal); M77.51 Other enthesopathy of right foot and ankle
CPT/HCPCS: 73620

== ENCOUNTER → 2022-03-23 10:11 | Outpatient (CLI) | payer MEDICARE, SELFPAY ==
--- NOTE | 2022-03-23 | DI.US.S_ITS ---
ULTRASOUND OF RIGHT BREAST: 03/23/2022 CLINICAL: 6 month follow-up of cysts. Comparison is made to exams dated: 03/23/2022 mammogram, 09/17/2021 ultrasound, 09/17/2021 mammogram, 07/20/2021 mammogram, 07/16/2020 mammogram, and 12/11/2019 breast MRI - [facility]. Real-time and Doppler ultrasound of the right breast were performed. Araiza scale images of the real-time examination were reviewed. No significant abnormalities were seen sonographically in the right breast. IMPRESSION: NEGATIVE There is no sonographic evidence of malignancy. There is no abnormality seen in the right breast to correspond with the prior ultrasound finding at 9 o'clock 10cm from nipple which is consistent with normal fibroglandular tissue. A 1 year screening mammogram is recommended. This exam was interpreted at Station ID: [id number]. Electronically Signed By: Bakari Valdez M.D. lc/:03/23/2022 11:53:12 letter sent: Normal Exam Ultrasound BI-RADS: 1 Negative
--- NOTE | 2022-03-23 | DI.MG.S_ITS ---
UNILATERAL RIGHT DIGITAL DIAGNOSTIC MAMMOGRAM 3D/2D: 03/23/2022 CLINICAL: Short term follow up. Comparison is made to exams dated: 09/17/2021 mammogram, 07/20/2021 mammogram, and 07/16/2020 mammogram - [facility]. There are scattered areas of fibroglandular density in the right breast (category b / 25%-50% glandular tissue). No significant masses, calcifications, or other findings are seen in the breast. IMPRESSION: INCOMPLETE: NEEDS ADDITIONAL IMAGING EVALUATION There is no abnormality seen in the right breast to correspond with the prior mammography finding at 9 o'clock which is likely normal fibroglandular tissue, however, ultrasound is recommended. This exam was interpreted at Station ID: [id number]. NOTE: For mammograms, a report in lay terms will be sent to the patient. Approximately 15% of breast malignancies will not be visualized mammographically. In the management of a palpable breast mass, a negative mammogram must not discourage biopsy of a clinically suspicious lesion. Electronically Signed By: Bakari Valdez M.D. lc/:03/23/2022 11:48:29 ACR BI-RADS Category 0: Incomplete 3340F
== END ==
PROVIDERS: PCP Student in an Organized Health Care Education/Training Program; Referring Provider Internal Medicine Hematology & Oncology; Visit Provider Internal Medicine Hematology & Oncology
DX: R92.8 Other abnormal and inconclusive findings on diagnostic imaging of breast (principal); C50.912 Malignant neoplasm of unspecified site of left female breast
CPT/HCPCS: 76642; 77065; G0279

== ENCOUNTER → 2022-07-29 12:48 | Outpatient (CLI) | payer MEDICARE, SELFPAY ==
--- NOTE | 2022-07-29 12:51 | DI.RAD.S_ITS ---
PROCEDURE: XR SHOULDER RT MIN 2V INDICATIONS: Chronic R shoulder pain. H/o surgery w/o hardware TECHNIQUE: 3 views of the shoulder were acquired. COMPARISON: None. FINDINGS: Bones: No fractures or dislocations. No suspicious bony lesions. Suspect surgical resection of the distal clavicle and acromioplasty. Severe glenohumeral joint degeneration. Visualized ribs appear intact. Soft tissues: Possible calcific tendinitis of the rotator cuff tendons. IMPRESSION: 1. Severe glenohumeral joint degeneration. 2. Suspect rotator cuff calcific tendinitis. 3. Postsurgical changes in the distal clavicle and acromion. Dictated by: Keven Villarreal M.D. on 07/30/2022 at 10:39 Approved by: Keven Villarreal M.D. on 07/30/2022 at 10:41
== END ==
PROVIDERS: PCP Student in an Organized Health Care Education/Training Program; Referring Provider Student in an Organized Health Care Education/Training Program; Visit Provider Student in an Organized Health Care Education/Training Program
DX: M19.011 Primary osteoarthritis, right shoulder (principal); M25.511 Pain in right shoulder
CPT/HCPCS: 73030

== ENCOUNTER → 2022-08-19 10:01 | Outpatient (CLI) | payer MEDICARE, SELFPAY ==
--- NOTE | 2022-08-19 10:05 | DI.CT.S_ITS ---
PROCEDURE: CT UE RT WO CON INDICATIONS: Primary osteoarthritis, right shoulder TECHNIQUE: Noncontrast 1-1.5 mm thick sections acquired from the acromioclavicular joint to the inferior scapula, with coronal and sagittal reformatting. COMPARISON: [facility], CR, XR SHOULDER RT MIN 2V, 07/29/2022, 12:53. FINDINGS: Image quality: Excellent. Bones: No acute osseous fracture or dislocation. Moderate to severe joint space narrowing is seen in the glenohumeral joint with subchondral sclerosis, subchondral cystic changes, and marginal osteophyte formation. There is no significant glenoid retroversion or anteversion. Suspected partial ossification of the superior glenoid labrum. Probable postsurgical changes at the acromioclavicular joint. Degenerative changes are seen in the spine. Soft tissues: No disproportionate rotator cuff muscle atrophy. Small glenohumeral effusion. The articular cartilages, ligaments, tendons, and labrum are not well evaluated with standard CT. There is a large heterogeneous right thyroid nodule that is partially imaged. Calcified granulomata are seen in the right lung. IMPRESSION: 1. Moderate to severe glenohumeral osteoarthrosis as described in the body of the report. Small glenohumeral effusion. 2. Postsurgical widening of the acromioclavicular joint. 3. Large heterogeneous right thyroid nodule. Recommend thyroid ultrasound for further evaluation. Approved by: David Clancy M.D. on 08/19/2022 at 12:25
[2022-08-19 10:26] LABS: Add Manual Diff / Slide Review NO; Basophils Absolute Auto 0 /uL (0-100); Basophils Percent Auto 0.6 % (0-2); Eosinophils Absolute Auto 100 /uL (0-450); Hematocrit 36.7 % (36-46); Hemoglobin 12.2 g/dL (12.0-16.0); Lymphocytes Absolute Auto 1100 /uL (1100-4500); Lymphocytes Percent Auto 17.9 % (25-40); Mean Corpuscular HGB Conc 33.3 % (30-36); Mean Corpuscular Hemoglobin 29.9 PG (26-34); Mean Corpuscular Volume 89.9 fL (80-100); Monocytes Absolute Auto 500 /uL (0-900); Monocytes Percent Auto 8.4 % (3-14); Neutrophils Absolute Auto 4500 /uL (1500-7000); Neutrophils Percent Auto 71.1 % (50-75); Platelet Count 198 X10^3/uL (150-400); Red Blood Cell Count 4.08 X10^6/uL (4.0-5.2); Red Cell Distribution Width 14.9 % (11.6-14.8); White Blood Cell Count 6.4 X10^3/uL (4.5-11.0)
[2022-08-19 10:39] LABS: BUN Creatinine Ratio 25.6 (6-22); Blood Urea Nitrogen 21 mg/dL (7-17); Calcium 9.3 mg/dL (8.4-10.2); Carbon Dioxide 29 mmol/L (22-32); Chloride 101 mmol/L (98-107); Estimated Glomerular Filt Rate > 60 mL/min (>60); Glucose 114 mg/dL (80-110); HEMOLYSIS < 15 (0-50); Potassium 4.7 mmol/L (3.4-5.1); Sodium 138 mmol/L (137-145)
[2022-08-19 12:21] LABS: Appearance Urine UA CLEAR; Bilirubin Urine UA NEGATIVE (NEGATIVE); Color Urine UA YELLOW; Glucose Urine UA NEGATIVE (Negative); Ketones Urine UA NEGATIVE (NEGATIVE); Leukocyte Esterase Urine UA 1+ (NEGATIVE); Nitrite Urine UA NEGATIVE (Negative); Occult Blood Urine UA NEGATIVE (Negative); Protein Urine UA NEGATIVE (Negative); Urobilinogen Urine UA 0.2 E.U./dL (0.2)
[2022-08-19 12:35] LABS: Amorphous Sediment Urine 1+; Bacteria Urine Occasional (0-1); Culture Indicated Urine Specimen Cultured; RBC Urine None Seen (0-5/HPF); Renal Epithelial Cells Urine 0-1/HPF (0-1/HPF); Squamous Epithelial Cell Urine 1-5 /HPF (0-5/HPF); WBC Urine 1-5/HPF (0-5/HPF); pH Urine UA 5.5 (4.5-8.0)
== END ==
PROVIDERS: PCP Student in an Organized Health Care Education/Training Program; Referring Provider Orthopaedic Surgery; Visit Provider Orthopaedic Surgery
DX: Z01.818 Encounter for other preprocedural examination (principal); Z01.812 Encounter for preprocedural laboratory examination; M19.011 Primary osteoarthritis, right shoulder; M25.411 Effusion, right shoulder; E04.1 Nontoxic single thyroid nodule; N39.0 Urinary tract infection, site not specified
CPT/HCPCS: 36415; 73200; 80048; 81001; 85025; 87086; 87147; 93005

== ENCOUNTER → 2022-08-25 11:55 | Outpatient (CLI) | payer MEDICARE, SELFPAY ==
--- NOTE | 2022-08-25 | DI.US.S_ITS ---
PROCEDURE: US THYROID INDICATIONS: THYROID NODULE TECHNIQUE: Real-time scanning was performed of the thyroid gland, with image documentation. COMPARISON: None. FINDINGS: Right: Thyroid lobe measures 8.0 x 4.1 x 4.9 cm, and is homogeneous in echotexture. Left: Thyroid lobe measures 3.4 cm, and is homogenous in echotexture. Subcentimeter cysts are present, low likelihood of malignancy. Isthmus: 3 mm thick. Nodule number: 1 Location: Right mid to lower gland Size: 5.1 x 4.1 x 5.3 cm. Composition: Mostly solid Echogenicity: Isoechoic Shape: wider than tall. Margins: Ill-defined Echogenic foci: No Total points: 3 ACR TI-RADS category: Mildly suspicious IMPRESSION: Large mixed solid and cystic right thyroid nodule, which demonstrates mildly suspicious morphology. TI-RADS 3. This meets size criteria for biopsy. ACR TI-RADS definitions and recommendations: TI-RADS 1 (benign): 0 points. FNA not needed. TI-RADS 2 (not suspicious): 2 points. FNA not needed. TI-RADS 3 (mildly suspicious): 3 points. * FNA if 2.5 cm or larger, follow up if 1.5 cm or larger (at 1, 3, and 5 years). TI-RADS 4 (moderately suspicious): 4-6 points. * FNA if 1.5 cm or larger, follow up if 1 cm or larger (at 1, 2, 3, and 5 years). TI-RADS 5 (highly suspicious): 7 points or more. * FNA if 1 cm or larger, follow up if 0.5 cm or larger (every year for 5 years). Dictated by: Mehran Sullivan M.D. on 08/25/2022 at 14:33 Approved by: Mehran Sullivan M.D. on 08/25/2022 at 14:37
== END ==
PROVIDERS: PCP Student in an Organized Health Care Education/Training Program; Referring Provider Orthopaedic Surgery; Visit Provider Orthopaedic Surgery
DX: E04.1 Nontoxic single thyroid nodule (principal)
CPT/HCPCS: 76536

== ENCOUNTER → 2022-09-08 13:49 | Outpatient (CLI) | payer MEDICARE, SELFPAY ==
[2022-09-08 15:31] LABS: TSH w/ Reflex to FT4 1.28 uIU/mL (0.47-4.68)
== END ==
PROVIDERS: PCP Student in an Organized Health Care Education/Training Program; Referring Provider Student in an Organized Health Care Education/Training Program; Visit Provider Student in an Organized Health Care Education/Training Program
DX: E04.1 Nontoxic single thyroid nodule (principal)
CPT/HCPCS: 36415; 84443

== ENCOUNTER 2022-09-16 11:56 | Inpatient (IN) | payer MEDICARE, SELFPAY ==
[2022-09-08 09:49] VITALS: BMI 41.8
--- NOTE | 2022-09-16 06:00 | DI.RAD.S_ITS ---
PROCEDURE: XR SHOULDER RT 1V INDICATIONS: RTSA TECHNIQUE: 1 views of the shoulder were acquired. COMPARISON: [facility], CR, XR SHOULDER RT MIN 2V, 07/29/2022, 12:53. FINDINGS: Bones: Expected appearance post total right shoulder arthroplasty. No evidence of hardware failure or loosening. No fractures or dislocations. No suspicious bony lesions. Visualized ribs appear intact. Soft tissues: No suspicious soft tissue calcifications. IMPRESSION: Expected appearance of total right shoulder arthroplasty. Dictated by: Darwin Vidales M.D. on 09/16/2022 at 17:38 Approved by: Darwin Vidales M.D. on 09/16/2022 at 17:44
[2022-09-16] MEDS: LACTATED RINGERS 1,000 ML 42 ML IV ×2 (12:41→15:59)
[2022-09-16] MEDS: ACETAMINOPHEN 325 MG TABLET 975 MG PO (12:41)
[2022-09-16] MEDS: CELECOXIB 200 MG CAPSULE PO (12:41)
[2022-09-16 12:50] LABS: COVID19 -Nasal RAPID Negative (Negative)
[2022-09-16 13:02] VITALS: BP 159/69; PULSE 69; RESP 18; TEMP 36.7; O2SAT 96; BMI 42.0
--- NOTE | 2022-09-16 13:26 | PM.PREOP ---
Pre-operative Note Interval Note History & Physical reviewed/Exam performed by Physician: Yes Changes to H&P: No
[2022-09-16] MEDS: CEFAZOLIN 2 GM/100 ML PREMIX 100 ML IV (14:15)
[2022-09-16] MEDS: TRANEXAMIC ACID 1,000 MG VIAL 1000 MG INJ ×2 (14:20→15:56)
--- NOTE | 2022-09-16 14:44 | SUR.OPER ---
Beach chair with [employer] shoulder positioner. Lower body on padded OR bed. Head in foam padded head cradle, secured with straps. Non-operative arm secured <90 degrees abduction. Pillow under knees. Safety belt at thigh. Cloth tape over blanket over lower legs.
[2022-09-16] MEDS: BUPIVACAINE 0.25% (PF) VIAL 10 ML SUBCUT (14:54)
--- NOTE | 2022-09-16 16:04 | PM.OP.1 ---
Operative Date/Time/Diagnoses Date of procedure: 09/16/22 Time of procedure: 16:04 Pre-op diagnosis: Right glenohumeral arthritis Post-op diagnosis: same Procedure & Clinicians Procedure: Right reverse total shoulder arthroplasty Same procedure as scheduled: Yes Indications: Indications: This is a 77-year-old female who has right shoulder glenohumeral arthritis. Symptoms have been present for years, insidious onset. Patient has failed conservative therapy including injections, physical therapy, anti-inflammatories and activity modification. After extensive discussion in clinic, they wished to go forward with surgery. Risks and benefits were described including the risk of infection, bleeding, damage to internal structures including nerves. We also discussed the risk of failure of surgery and the need for revision surgery as well as the risk of anesthesia. The patient expressed understanding with these risks and wished to go forward with surgery. Surgeon: Vincent Parra Church Warden: Celsa Mart Click Yes if Unassisted: No Anesthesia Type: General Operative Notes Findings: Findings: Osteoarthritis of the glenoid and humeral head [as well as a defient rotator cuff] as noted on preoperative imaging and under direct visualization Closure Type: primary Specimen(s): none sent Prosthetic devices, grafts, tissues, transplants, or devices: Tornier implants Base plate: 25 mm, full wedge Glenosphere: Standard 36 mm Stem: Perform 2+ Poly: +0 concentric Estimated Blood Loss (mL): 50 Procedure in detail: Operative note: Patient was seen in the preoperative holding unit. The correct right shoulder was identified and marked with my initials. Again we discussed the risks and benefits of surgery and they wished to go forward with surgery. The patient was brought back to the operating room and placed supine on the operating table. Smooth endotracheal intubation was performed by anesthesia. All prominences were padded and they were placed into the beach chair position. Intravenous antibiotics were given. The right shoulder was then prepped with the standard sterile preparation and draping. A time-out was then performed in my initials were again identified on the correct shoulder. 1 g of IV tranexamic acid was given. A standard deltopectoral incision was made. Skin flaps were made. The cephalic vein was identified and retracted laterally. This was protected throughout the remainder of the case. Sharp dissection was made along the deltoid, subacromial and subcoracoid space to release adhesions. The conjoined tendon was identified and the axillary nerve was palpated and continuous using the tug test. It was protected throughout the remainder of the case. A brown retractor was placed underneath the deltoid muscle and a darach retractor underneath the conjoint tendon. The anterior circumflex artery and associated veins on the lower border of the subscapularis were identified and tied off using 0-Vicryl. The biceps tendon was identified in the bicipital groove. This was released from its sheath, and taken from its origin on the glenoid and tied into the pectoralis tendon for a solid tenodesis. We then began a subscapularis peel. The subscapularis was tagged with an Ethibond suture. A 360 degree circumferential release of the subscapularis was performed with protection of the axillary nerve. The coracohumeral ligament was released at the base of the coracoid. The coracoacromial ligament was left intact. The shoulder was then dislocated. Osteophytes were removed using combination of rongeur and osteotome. The rotator cuff was noted to be insufficient. An intramedullary guide was used set at version of 30?. Using an oscillating saw a conservative humeral head cut was made. Impaction reamers were reamed up to a size 2 stem set at angle 135? (standard). A neck protector was placed. Attention was then turned to the glenoid. After retracting the humeral head posteriorly a circumferential release was performed of the capsule with protection of the axillary nerve. The labrum was then released starting at the biceps anchor and going around the rim a small amount of triceps was released from the inferior glenoid. A center guide pin was then placed using the guide, followed by Reamer. After adequate cartilage was removed the center drill hole was drilled and measured. The base plate was then implanted and screwed into place. The superior drill hole was drilled and filled in a nonlocking fashion, followed by the inferior and anterior holes in locking fashion. A 36 standard glenosphere was then selected and screwed into place onto the base plate. Turning back to the humerus, the humeral head was delivered and trialed with a 0 concentric poly. The arm was taken through range of motion and this was felt to be stable. The trial was then removed and a dilute Betadine wash was then performed with 1 L of sterile saline. Before placing the final implant, drill holes were made in the bicipital groove for the subscapularis repair, and sutures were passed through the drill holes. The final stem with high offset tray was then impacted into the humerus. The shoulder was then reduced and again brought through range of motion and was felt to be stable. The interval was then closed using 0-Vicryl. The subscapularis was then repaired using a modified racking hitch with niece loupes. The deltopectoral interval was then closed with #2 Ethibond. The skin was closed with 2-0 PDS and giuseppe followed by Aquacel dressing. Patient was awoken from anesthesia and brought back to the postoperative recovery unit without issue. They were placed into a sling. Assisting participation: This operation could not have been safely performed (without compromising the technical results or length of the procedure) without the assistance of a skilled assistant loan processor. The assistant loan processor was medically necessary for proper positioning, retraction and manipulation of instruments, proper exposure, graft prep, and manipulation of tissue. Complications: none Post-operative Condition: stable Disposition: PACU Plan for aftercare: Postoperative instructions: Sling to remain on for 6 weeks. No external rotation past neutral for 6 weeks. Okay for him to come off her shower. Okay to shower over the Aquacel dressing. If any water gets underneath the dressing, remove the dressing. First postoperative visit in 2 weeks.
[2022-09-16 16:36] VITALS: BP 130/56; PULSE 66; RESP 17; TEMP 36.2; O2SAT 92
[2022-09-16 16:40] VITALS: BP 127/56; PULSE 64; RESP 12; O2SAT 93
[2022-09-16 16:47] VITALS: BP 129/57; PULSE 67; RESP 12; TEMP 36.2; O2SAT 93
[2022-09-16] MEDS: ONDANSETRON 4 MG/2 ML INJ IV (16:55)
[2022-09-16] MEDS: hydrOXYzine 50 MG/ML INJ 25 MG IM (16:56)
[2022-09-16 17:00] VITALS: BP 125/56; PULSE 55; RESP 11; TEMP 36.9; O2SAT 92
[2022-09-16] MEDS: HYDROCODONE/ACET 5/325 TABLET 1 TAB PO (17:22)
--- NOTE | 2022-09-16 18:05 | SUR.PHASEII ---
Discharged patient home with in stable condition with all belongings returned. All instructions reviewed and understood by patient.
== END 2022-09-16 18:06 | disposition home or self-care (01) | DRG 483 ==
PROVIDERS: Admitting Provider Orthopaedic Surgery; PCP Student in an Organized Health Care Education/Training Program; Referring Provider Orthopaedic Surgery; Visit Provider Orthopaedic Surgery
PROC: 0RRJ00Z Replacement of Right Shoulder Joint with Reverse Ball and Socket Synthetic Substitute, Open Approach (ICD-10-PCS; CPT 23472; principal; 2022-09-16 14:00)
DX: M19.011 Primary osteoarthritis, right shoulder (principal); F41.9 Anxiety disorder, unspecified; Z20.822 Contact with and (suspected) exposure to COVID-19
CPT/HCPCS: 64450; 73020; 87635; C1776; C9803; J0330; J0690; J1100; J1885; J2250; J2405; J2704; J3010; J3410; J3490

== ENCOUNTER 2022-12-20 09:45 | Emergency (ER) | payer MEDICARE, SELFPAY ==
[2022-12-20] VITALS (20 sets, daily range): BP systolic 135–176; BP diastolic 61–78; PULSE 50–64; RESP 16–34; TEMP 36.6; O2SAT 94–100; BMI 41.7
--- NOTE | 2022-12-20 09:52 | DI.RAD.S_ITS ---
PROCEDURE: XR CHEST 1V INDICATIONS: chest pain TECHNIQUE: One view of the chest was acquired. COMPARISON: None. FINDINGS: Surgical changes and devices: Total right shoulder arthroplasty. Lungs and pleura: Lungs are clear. No pleural effusions or pneumothorax. Mediastinum: Mediastinal contours appear normal. Heart size is normal. Bones and chest wall: No suspicious bony lesions. Overlying soft tissues appear unremarkable. IMPRESSION: No evidence acute pulmonary process. Dictated by: Darwin Vidales M.D. on 12/20/2022 at 10:28 Approved by: Darwin Vidales M.D. on 12/20/2022 at 10:29
[2022-12-20] MEDS: ASPIRIN 81 MG CHEW TAB 324 MG PO (10:00)
--- NOTE | 2022-12-20 10:09 | DI.CT.S_ITS ---
PROCEDURE: CT ABDOMEN PELVIS W CON INDICATIONS: IV contrast only/epigastric pain TECHNIQUE: After the administration of intravenous contrast, axial sections acquired from the lung bases to the pubic symphysis. Coronal and sagittal reformats were performed. For radiation dose reduction, the following was used: automated exposure control, adjustment of mA and/or kV according to patient size. COMPARISON: None. FINDINGS: Image quality: Excellent. Lung bases: Unremarkable. Heart: Cardiomegaly. ABDOMEN: Liver: Unremarkable. Gallbladder: Gallbladder is distended without calcified stones identified. No gallbladder wall thickening.. Biliary ducts: Unremarkable. Pancreas: Unremarkable. Spleen: Unremarkable. Adrenal Glands: Unremarkable. Kidneys and Ureters: Unremarkable. Stomach and Bowel: Stomach, small bowel loops, and colon are unremarkable. Diverticulosis. Question mild acute diverticulitis of the proximal descending colon near the splenic flexure. Peritoneum: No abnormal intraperitoneal fluid. No free air. Ventral Wall: No hernias. Abdominal Nodes: No retroperitoneal or mesenteric adenopathy by size criteria. Vessels: Aorta and inferior vena cava are normal in size. PELVIS: Pelvic Organs: Unremarkable. Bladder: Unremarkable. Pelvic Nodes: No enlarged lymph nodes. Miscellaneous: No hernias are seen. Bones: Lumbar degenerative change. No lytic or blastic bony lesions. No compression fractures. IMPRESSION: Question very mild diverticulitis of the proximal descending colon near the splenic flexure. Dictated by: Darwin Vidales M.D. on 12/20/2022 at 10:54 Approved by: Darwin Vidales M.D. on 12/20/2022 at 10:58
--- NOTE | 2022-12-20 10:10 | ED_ITS ---
HPI - Chest Pain General Chief Complaint: Chest Pain Stated Complaint: pain in upper chest & between shoulders/N Time Seen by Provider: 12/20/22 09:57 History of Present Illness HPI narrative: Patient brought here from home by for complaints of epigastric pain that radiates to the back with nausea sweating shortness of breath. Pain with deep breath at the epigastrium. Pain with palpation of the epigastrium. Patient states had similar episode 3 months ago and came here but left before being seen or registering because the pain resolved. Patient states she awoke at 6:00 a.m. this morning to let her dogs out. These are when her symptoms started. Currently abdominal discomfort 08/27. Patient has history of abdominal surgical history with partial resection of the colon due to tumor finding. Otherwise no other abdominal surgical history. Denies any substernal chest pain or pressure. No prior history of IL/heart attack or coronary disease. No history of aortic aneurism. Denies any recent food intolerance. Denies regular alcohol use or NSAID use. Related Data Home Medications Medication Instructions Recorded Confirmed acetaminophen 500 mg tablet 500 mg PO DAILY PRN Pain 11/19/19 09/16/22 (Tylenol Extra Strength) Previous Rx's Medication Instructions Recorded clonidine HCl 0.1 mg tablet 0.1 mg PO BEDTIME PRN Night sweats 09/05/22 #90 tabs zolpidem 5 mg tablet 5 mg PO BEDTIME PRN sleep #30 tabs 09/06/22 ondansetron HCl 4 mg tablet 4 mg PO Q8H PRN nausea and 09/16/22 vomiting #10 tabs ciprofloxacin HCl 500 mg tablet 500 mg PO Q12H #14 tabs 12/20/22 (Cipro) metoclopramide HCl 10 mg tablet 10 mg PO Q6H PRN nausea and 12/20/22 vomiting #20 tabs metronidazole 500 mg tablet 500 mg PO TID #21 tabs 12/20/22 Allergies Allergy/AdvReac Type Severity Reaction Status Date / Time No Known Drug Allergies Allergy Verified 12/20/22 10:00 Review of Systems Review of Systems Narrative: GENERAL: negative chills, fatigue, malaise, fever, positive sweats. HEENT: negative sinus pain, ear pain, sore throat RESPIRATORY: Positive dyspnea, negative cough CARDIOVASCULAR: negative chest pain, palpitations GASTROINTESTINAL: Positive nausea, negative vomiting, positive abdominal pain : negative dysuria, frequency, hematuria MUSCULOSKELETAL: negative muscle or bony pain SKIN: negative rash, skin lesions NEUROLOGIC: negative weakness, numbness ROS Unobtainable: All systems reviewed & are unremarkable except as noted in HPI and below Patient History Medical History Ankle pain (2004) Anxiety Arthritis Breast cancer, left (08/31/19) Bronchitis Chicken pox Constipation COVID-19 virus infection (09/2020) Foot pain (2004) Heartburn Knee torn cartilage, right (2004) Measles Mumps Osteoarthritis Plantar warts Pneumonia Rubella Sleep apnea Tendinitis of right hand Thin skin Whooping cough Surgical History Anesthesia complication History of arthroplasty of right knee (2014) History of right knee surgery (2004) History of shoulder surgery (2004) History of surgery (03/18/21) Status post partial mastectomy of left breast (11/22/19) Status post partial mastectomy of left breast (12/19/19) Status post right hemicolectomy Family History Brother Age: 74 Type II diabetes mellitus Status post knee replacement Son Age: 46 Anxiety and depression Mother Age: 96 Hypertension Osteoporosis Urinary disorder Anemia Hyponatremia Status post knee replacement Gait disturbance Blackout spell Family/Other Urinary disorder Cyst of right breast Kidney stones Father MVA (motor vehicle accident) Sister No problems noted. Social History marital status: household members: spouse occupational status: previously employed Smoking Status: Never smoker alcohol intake: current substance use type: marijuana Smoking Status: Never smoker alcohol intake frequency: holidays/special occasions only Substance Use Type: marijuana Exam Narrative Exam Narrative: GENERAL: in no distress, not toxic not dyspneic HEAD: Normocephalic. EYES: Pupils equal round ENT: Mucous membranes moist. NECK: Trachea midline. CARDIOVASCULAR: Regular rate and rhythm without murmurs, strong bilateral carotid and radial pulses RESPIRATORY: Clear to auscultation. Breath sounds equal bilaterally. No wheezes, rales, or rhonchi. GASTROINTESTINAL: Abdomen soft, there is reproducible epigastric and left upper quadrant tenderness. No peritoneal signs. Negative Cox's sign. No pain out of proportion to exam. Bowel sounds are present. No CVA tenderness. EXTREMITIES: No gross deformities. BACK: No flank tenderness. NEURO: AOx4. SKIN: Warm and dry PSYCH: Not anxious, is cooperative Initial Vital Signs Initial Vital Signs: Vital Signs Temperature 97.8 F 12/20/22 09:49 Pulse Rate 63 12/20/22 09:49 Respiratory Rate 16 12/20/22 09:49 Blood Pressure 176/78 H 12/20/22 09:49 Pulse Oximetry 94 12/20/22 09:49 Oxygen Delivery Method Room Air 12/20/22 09:49 Course Orders Ordered: Discontinued Medications Al Hydrox/Mg Hydrox/Simethicone (Mag Hydrox/Alum/Simeth 30 Ml Udc) 30 ml PO NOW ONE Stop: 12/20/22 10:21 Last Admin: 12/20/22 10:22 Dose: 30 ml Documented By: TRENT Aspirin (Aspirin 81 Mg Chew Tab) 324 mg PO NOW ONE Stop: 12/20/22 09:53 Last Admin: 12/20/22 10:00 Dose: 162 mg Documented By: RTENT Ciprofloxacin (Ciprofloxacin 250 Mg Tablet) 500 mg PO NOW ONE Stop: 12/20/22 11:26 Last Admin: 12/20/22 11:51 Dose: 500 mg Documented By: DAYSI Al Hydrox/Mg Hydrox/Simethicone 20 ml/ Lidocaine HCl 15 ml 0 ml PO NOW ONE Stop: 12/20/22 10:09 Last Admin: 12/20/22 10:20 Dose: Not Given Documented By: SHANE Sodium Chloride (Normal Saline 0.9%) 1,000 mls @ 1,000 mls/hr IV BOLUS ONE Stop: 12/20/22 11:07 Last Infusion: 12/20/22 12:14 Dose: 0 mls/hr Documented By: Admin: 12/20/22 10:16 Dose: 1,000 mls/hr Documented By: TRENT Sodium Chloride (Normal Saline 0.9%) 1,000 mls @ 1,000 mls/hr IV BOLUS ONE Stop: 12/20/22 13:09 Last Admin: 12/20/22 12:24 Dose: Not Given Documented By: TRENT Metronidazole (Metronidazole 500 Mg Tablet) 500 mg PO NOW ONE Stop: 12/20/22 11:26 Last Admin: 12/20/22 11:51 Dose: 500 mg Documented By: DAYSI Ondansetron HCl (Ondansetron 4 Mg/2 Ml Inj) 4 mg IV NOW ONE Stop: 12/20/22 10:09 Last Admin: 12/20/22 10:15 Dose: 4 mg Documented By: TRENT Pantoprazole Sodium (Pantoprazole 40 Mg Vial) 40 mg IV NOW ONE Stop: 12/20/22 10:10 Last Admin: 12/20/22 10:15 Dose: 40 mg Documented By: TRENT Vital Signs Vital signs: Vital Signs - 8 hr 12/20/22 09:49 12/20/22 09:57 12/20/22 09:59 Temperature 97.8 F Pulse Rate 63 54 L Respiratory Rate 16 Blood Pressure 176/78 H 151/66 H Pulse Oximetry 94 100 Oxygen Delivery Method Room Air 12/20/22 09:59 12/20/22 10:00 12/20/22 10:00 Temperature Pulse Rate 52 L 51 L Respiratory Rate 25 H 34 H Blood Pressure 146/67 H Pulse Oximetry 100 99 Oxygen Delivery Method Room Air 12/20/22 10:15 12/20/22 10:30 12/20/22 10:31 Temperature Pulse Rate 53 L 50 L Respiratory Rate Blood Pressure 165/69 H Pulse Oximetry 98 99 Oxygen Delivery Method 12/20/22 10:31 12/20/22 10:48 12/20/22 10:55 Temperature Pulse Rate 50 L 56 L Respiratory Rate 16 Blood Pressure 157/70 H Pulse Oximetry 99 Oxygen Delivery Method 12/20/22 10:55 12/20/22 11:00 12/20/22 11:00 Temperature Pulse Rate 58 L 52 L Respiratory Rate 20 Blood Pressure 148/67 H Pulse Oximetry 97 96 Oxygen Delivery Method Room Air 12/20/22 11:15 12/20/22 11:30 12/20/22 11:31 Temperature Pulse Rate 60 53 L Respiratory Rate 32 H Blood Pressure 147/63 H Pulse Oximetry 96 99 Oxygen Delivery Method 12/20/22 11:31 12/20/22 11:45 12/20/22 12:00 Temperature Pulse Rate 54 L 64 51 L Respiratory Rate 29 H 32 H 28 H Blood Pressure Pulse Oximetry 99 97 Oxygen Delivery Method 12/20/22 12:01 12/20/22 12:01 12/20/22 12:15 Temperature Pulse Rate 52 L 53 L Respiratory Rate 24 24 Blood Pressure 157/65 H Pulse Oximetry Oxygen Delivery Method MDM - Chest Pain Lab Data 12/20/22 09:55 12/20/22 09:55 Labs: Lab Results 12/20/22 12/20/22 12/20/22 Range/Units 09:55 09:55 09:55 WBC 5.0 (4.5-11.0) X10^3/uL RBC 4.11 (4.0-5.2) X10^6/uL Hgb 12.3 (12.0-16.0) g/dL Hct 36.3 (36-46) % MCV 88.2 (80-100) fL MCH 29.8 (26-34) PG MCHC 33.8 (30-36) % RDW 14.9 H (11.6-14.8) % Plt Count 190 (150-400) X10^3/uL Neut % (Auto) 55.6 (50-75) % Lymph % (Auto) 33.1 (25-40) % [place] % (Auto) 8.0 (3-14) % Eos % (Auto) 2.7 (2-4) % Baso % (Auto) 0.6 (0-2) % Neut # (Auto) 2800 (1527-4268) /uL Lymph # (Auto) 1700 (3334-7899) /uL [place] # (Auto) 400 (0-900) /uL Eos # (Auto) 100 (0-450) /uL Baso # (Auto) 0 (0-100) /uL PT 11.3 (10.1-12.7) SECONDS INR 1.0 (0.9-1.3) APTT 30 (26-36) SECONDS Sodium 138 (137-145) mmol/L Potassium 4.2 (3.4-5.1) mmol/L Chloride 103 (98-107) mmol/L Carbon Dioxide 29 (22-32) mmol/L BUN 15 (7-17) mg/dL Creatinine 0.67 (0.52-1.04) mg/dL Estimated GFR > 60 (>60) mL/min BUN/Creatinine Ratio 22.4 H (6-22) Glucose 130 H (80-110) mg/dL Calcium 9.2 (8.4-10.2) mg/dL Magnesium 2.1 (1.6-2.3) mg/dL Total Bilirubin 0.6 (0.2-1.3) mg/dL AST 34 (14-36) IU/L ALT 26 (<35) IU/L Alkaline Phosphatase 125 (38-126) U/L Total Creatine Kinase 46 (30-135) U/L CK-MB (CK-2) TNP CK-MB (CK-2) Rel Index TNP Troponin I < 0.012 (0.01-0.034) ng/mL Total Protein 7.4 (6.3-8.2) g/dL Albumin 4.3 (3.5-5.0) g/dL Globulin 3.1 (1.7-4.1) g/dL Albumin/Globulin Ratio 1.4 (1.0-2.8) Lipase 79 (23-300) U/L 12/20/22 Range/Units 12:09 WBC (4.5-11.0) X10^3/uL RBC (4.0-5.2) X10^6/uL Hgb (12.0-16.0) g/dL Hct (36-46) % MCV (80-100) fL MCH (26-34) PG MCHC (30-36) % RDW (11.6-14.8) % Plt Count (150-400) X10^3/uL Neut % (Auto) (50-75) % Lymph % (Auto) (25-40) % [place] % (Auto) (3-14) % Eos % (Auto) (2-4) % Baso % (Auto) (0-2) % Neut # (Auto) (4570-2714) /uL Lymph # (Auto) (5803-2174) /uL [place] # (Auto) (0-900) /uL Eos # (Auto) (0-450) /uL Baso # (Auto) (0-100) /uL PT (10.1-12.7) SECONDS INR (0.9-1.3) APTT (26-36) SECONDS Sodium (137-145) mmol/L Potassium (3.4-5.1) mmol/L Chloride (98-107) mmol/L Carbon Dioxide (22-32) mmol/L BUN (7-17) mg/dL Creatinine (0.52-1.04) mg/dL Estimated GFR (>60) mL/min BUN/Creatinine Ratio (6-22) Glucose (80-110) mg/dL Calcium (8.4-10.2) mg/dL Magnesium (1.6-2.3) mg/dL Total Bilirubin (0.2-1.3) mg/dL AST (14-36) IU/L ALT (<35) IU/L Alkaline Phosphatase (38-126) U/L Total Creatine Kinase 45 (30-135) U/L CK-MB (CK-2) TNP CK-MB (CK-2) Rel Index TNP Troponin I < 0.012 (0.01-0.034) ng/mL Total Protein (6.3-8.2) g/dL Albumin (3.5-5.0) g/dL Globulin (1.7-4.1) g/dL Albumin/Globulin Ratio (1.0-2.8) Lipase (23-300) U/L Imaging Data CT scan - abdomen/pelvis: Radiologist's Impression: [place] [address] CT Scan Report Signed Patient: Giselle Cool MR#: [id number] : 1945 Acct:[id number] Age/Sex: 77 / F Date of Service: 12/20/22 Loc: ED Accession Number: [id number] ?? Procedure: CT abdomen pelvis w con Ordering Provider: Reji Portillo MD PROCEDURE:? CT ABDOMEN PELVIS W CON ? INDICATIONS:? IV contrast only/epigastric pain ? TECHNIQUE:? After the administration of intravenous contrast, axial sections acquired from the lung bases to the pubic symphysis.? Coronal and sagittal reformats were performed.? For radiation dose reduction, the following was used:? automated exposure control, adjustment of mA and/or kV according to patient size.? ? COMPARISON:? None. ? FINDINGS:? Image quality:? Excellent.? ? Lung bases:? Unremarkable. Heart:? Cardiomegaly. ? ABDOMEN: Liver:? Unremarkable.? ? Gallbladder:? Gallbladder is distended without calcified stones identified.? No gallbladder wall thickening..? ? Biliary ducts:? Unremarkable.? ? Pancreas:? Unremarkable.? ? Spleen:? Unremarkable.? ? Adrenal Glands:? Unremarkable.? ? Kidneys and Ureters:? Unremarkable.? ? ? Stomach and Bowel:? Stomach, small bowel loops, and colon are unremarkable.? Diverticulosis.? Question mild acute diverticulitis of the proximal descending colon near the splenic flexure. Peritoneum:? No abnormal intraperitoneal fluid.? No free air.? ? Ventral Wall: ? No hernias.? Abdominal Nodes:? No retroperitoneal or mesenteric adenopathy by size criteria.? Vessels:? Aorta and inferior vena cava are normal in size.? ? PELVIS: Pelvic Organs:? Unremarkable.? ? Bladder:? Unremarkable.? ? Pelvic Nodes: No enlarged lymph nodes.? Miscellaneous: No hernias are seen. ? ? ? Bones:? Lumbar degenerative change.? No lytic or blastic bony lesions.? No compression fractures. ? ? ? IMPRESSION:? Question very mild diverticulitis of the proximal descending colon near the splenic flexure. ? ? Dictated by: Darwin Vidales M.D. on 12/20/2022 at 10:54 ? ? Approved by: Darwin Vidales M.D. on 12/20/2022 at 10:58 ? Chest x-ray: Radiologist's Impression: [place] [address] XRay Report Signed Patient: Giselle Cool MR#: [id number] : 1945 Acct:[id number] Age/Sex: 77 / F Date of Service: 12/20/22 Loc: ED Accession Number: [id number] ?? Procedure: XR chest 1V Ordering Provider: Reji Portillo MD PROCEDURE:? XR CHEST 1V ? INDICATIONS:? chest pain ? TECHNIQUE:? One view of the chest was acquired.? ? COMPARISON:? None. ? FINDINGS:? ? Surgical changes and devices:? Total right shoulder arthroplasty.? ? Lungs and pleura:? Lungs are clear.? No pleural effusions or pneumothorax.? ? Mediastinum:? Mediastinal contours appear normal.? Heart size is normal.? ? Bones and chest wall:? No suspicious bony lesions.? Overlying soft tissues jayjay ear unremarkable.? ? IMPRESSION:? No evidence acute pulmonary process. ? ? ? Dictated by: Darwin Vidales M.D. on 12/20/2022 at 10:28 ? ? Approved by: Darwin Vidales M.D. on 12/20/2022 at 10:29 ? [facility] Narrative Medical decision making narrative: Patient brought here from home by for complaints of epigastric pain that radiates to the back with nausea sweating shortness of breath. Pain with deep breath at the epigastrium. Pain with palpation of the epigastrium. Patient states had similar episode 3 months ago and came here but left before being seen or registering because the pain resolved. Patient states she awoke at 6:00 a.m. this morning to let her dogs out. These are when her symptoms started. Currently abdominal discomfort 08/27. Patient has history of abdominal surgical history with partial resection of the colon due to tumor finding. Otherwise no other abdominal surgical history. Denies any substernal chest pain or pressure. No prior history of IL/heart attack or coronary disease. No history of aortic aneurism. Denies any recent food intolerance. Denies regular alcohol use or NSAID use. After history and exam CBC CMP troponin x2, lipase, chest x-ray, CT abdomen pelvis, EKG [facility] CC: Epigastric pain Complicating co-morbidities: No prior cardiac history Data collected from: Patient Medical records reviewed: No recent visits for this complaint Differential considered: Includes but not limited to STEMI non-STEMI aortic aneurysm/dissection, pancreatitis, acid reflux, cholecystitis, cholelithiasis Exam documented above, pertinent findings include: Tender epigastric and right upper quadrant Lab Test results independently reviewed as above. Pertinent findings: WBC 5.0 hemoglobin 12.3 INR 1.0 sodium 138 potassium 4.2 BUN 15 creatinine 0.67 GFR greater than 60 AST 34 ALT 26 troponin less than 0.012 Independently reviewed EKG sinus bradycardia rate [address] elevation or depression Imaging studies independently reviewed: CT abdomen and pelvis question very mild diverticulitis of the proximal descending colon near the splenic flexure. This is clinically correlated with exam. Patient is tender epigastric left upper quadrant as well as right upper quadrant. Chest x-ray no acute process Consultations: None indicated at this time. Treatments: Aspirin Zofran Cipro Flagyl normal saline Re-evaluations: 11:30 a.m.. Reviewed results with patient and, now at bedside, patient felt much better after vomiting here. Denies abdominal pain. No tenderness on palpation at this time. No GI cocktail was given. Zofran was given. Patient states 2 years ago had the partial colectomy. dr neff, here at this hospital. Has not had colonoscopy since then. She states she will schedule appointment, I will give referral to Dr. Monaco, on-call general surgeon. Reviewed with patient and that CT imaging shows possibly early diverticulitis, her onset of symptoms were just 5-1/[address] may be lagging behind as well as blood work. She does agree with Cipro and Flagyl to treat for diverticulitis. Repeat troponin pending at 12:00 p.m.. Discussion: Appropriate for discharge home. Repeat troponin still normal. Patient did not have chest pain. Triage notes indicate chest pain however on questioning and exam with patient she states she does not have chest pain. She has reproducible epigastric tenderness on palpation. Return precautions reviewed with patient . Referral for General surgery for outpatient colonoscopy provided. Antibiotics have been started here. Clinically is likely early diverticulitis and may be too early for CT scan imaging to fully see. Patient feels much better and is pain-free nausea free at time of discharge. Nontoxic at discharge. They desire discharge home Diagnosis: Acute diverticulitis Discharge Plan Departure Patient Disposition: Home Clinical Impression: Diverticulitis Instructions: DI for Diverticulitis Activity Restrictions/Additional Instructions: Please call Dr. Monaco office today to schedule appointment for re-evaluation and for colonoscopy. Prescription medication has been sent to your pharmacy to continue today. Please pick this up this afternoon. Return if worse if any questions or concerns. Prescriptions: New metronidazole 500 mg tablet 500 mg PO TID Qty: 21 0RF metoclopramide HCl 10 mg tablet 10 mg PO Q6H PRN (Reason: nausea and vomiting) Qty: 20 0RF ciprofloxacin HCl [Cipro] 500 mg tablet 500 mg PO Q12H Qty: 14 0RF No Action clonidine HCl 0.1 mg tablet 0.1 mg PO BEDTIME PRN (Reason: Night sweats) Qty: 90 3RF zolpidem 5 mg tablet 5 mg PO BEDTIME PRN (Reason: sleep) Qty: 30 4RF Hold Instructions: change to 5mg #30 4RF acetaminophen [Tylenol Extra Strength] 500 mg Tablet 500 mg PO DAILY PRN (Reason: Pain) ondansetron HCl 4 mg tablet 4 mg PO Q8H PRN (Reason: nausea and vomiting) Qty: 10 0RF Referrals: Cristhian Jimenez MD [Primary Care Provider] - Paul Monaco MD [Physician] - Stand Alone Forms: Patient Portal/API
[2022-12-20 10:12] LABS: Add Manual Diff / Slide Review NO; Basophils Absolute Auto 0 /uL (0-100); Basophils Percent Auto 0.6 % (0-2); Eosinophils Absolute Auto 100 /uL (0-450); Eosinophils Percent Auto 2.7 % (2-4); Hematocrit 36.3 % (36-46); Hemoglobin 12.3 g/dL (12.0-16.0); Lymphocytes Absolute Auto 1700 /uL (1100-4500); Lymphocytes Percent Auto 33.1 % (25-40); Mean Corpuscular HGB Conc 33.8 % (30-36); Mean Corpuscular Hemoglobin 29.8 PG (26-34); Mean Corpuscular Volume 88.2 fL (80-100); Monocytes Absolute Auto 400 /uL (0-900); Neutrophils Absolute Auto 2800 /uL (1500-7000); Neutrophils Percent Auto 55.6 % (50-75); Platelet Count 190 X10^3/uL (150-400); Red Blood Cell Count 4.11 X10^6/uL (4.0-5.2); Red Cell Distribution Width 14.9 % (11.6-14.8)
[2022-12-20 10:15] LABS: Prothrombin Time 11.3 SECONDS (10.1-12.7)
[2022-12-20] MEDS: PANTOPRAZOLE 40 MG VIAL IV (10:15)
[2022-12-20] MEDS: ONDANSETRON 4 MG/2 ML INJ IV (10:15)
[2022-12-20] MEDS: SODIUM CHLORIDE 0.9% 1,000 ML 1000 ML IV (10:16)
[2022-12-20 10:17] LABS: PTT Partial Thromboplastin Tim 30 SECONDS (26-36)
[2022-12-20 10:20] LABS: Alanine Aminotransferase 26 IU/L (<35); Albumin 4.3 g/dL (3.5-5.0); Albumin Globulin Ratio 1.4 (1.0-2.8); Alkaline Phosphatase 125 U/L (38-126); Aspartate Aminotransferase 34 IU/L (14-36); BUN Creatinine Ratio 22.4 (6-22); Bilirubin Total 0.6 mg/dL (0.2-1.3); Blood Urea Nitrogen 15 mg/dL (7-17); Calcium 9.2 mg/dL (8.4-10.2); Carbon Dioxide 29 mmol/L (22-32); Chloride 103 mmol/L (98-107); Creatine Kinase 46 U/L (30-135); Estimated Glomerular Filt Rate > 60 mL/min (>60); Globulin 3.1 g/dL (1.7-4.1); Glucose 130 mg/dL (80-110); HEMOLYSIS < 15 (0-50); Lipase 79 U/L (23-300); Magnesium 2.1 mg/dL (1.6-2.3); Potassium 4.2 mmol/L (3.4-5.1); Sodium 138 mmol/L (137-145); Total Protein 7.4 g/dL (6.3-8.2)
[2022-12-20] MEDS: MAG HYDROX/ALUM/SIMETH 30 ML UDC PO (10:22)
[2022-12-20 10:31] LABS: Troponin I < 0.012 ng/mL (0.01-0.034)
[2022-12-20] MEDS: CIPROFLOXACIN 250 MG TABLET 500 MG PO (11:51)
[2022-12-20] MEDS: metroNIDAZOLE 500 MG TABLET PO (11:51)
[2022-12-20 12:27] LABS: Creatine Kinase 45 U/L (30-135)
[2022-12-20 12:40] LABS: Troponin I < 0.012 ng/mL (0.01-0.034)
== END 2022-12-20 13:18 | disposition home or self-care (01) ==
PROVIDERS: Emergency Provider Emergency Medicine; PCP Student in an Organized Health Care Education/Training Program
DX: K57.92 Diverticulitis of intestine, part unspecified, without perforation or abscess without bleeding (principal); R07.9 Chest pain, unspecified; R06.02 Shortness of breath; R11.0 Nausea
CPT/HCPCS: 36415; 71045; 74177; 80053; 81003; 82550; 83690; 83735; 84484; 85025; 85610; 85730; 93005; 93010; 96361; 96374; 96375; 99284; 99285; C9113; J2405; Q9967

== ENCOUNTER → 2023-01-17 07:29 | Outpatient (CLI) | payer MEDICARE, SELFPAY ==
--- NOTE | 2023-01-17 07:30 | DI.US.S_ITS ---
PROCEDURE: US ABDOMEN LIMITED INDICATIONS: EPIGASTRIC PAIN TECHNIQUE: Real-time scanning was performed of the abdominal and retroperitoneal organs, with image documentation. COMPARISON: [facility], , US ABDOMEN LIMITED, 08/14/2019, 10:49. FINDINGS: Liver: The liver measures 18.5 cm in length and demonstrates increased echogenicity throughout. Multiple anechoic liver cysts are noted. Gallbladder: The gallbladder wall measures 2.5 mm in diameter. Mobile sludge is present within. No pericholecystic fluid or sonographic Cox sign. Biliary ducts: Intrahepatic bile ducts are non-dilated. Extrahepatic bile duct caliber measures 4.1 mm. Normal is 6-7 mm or less in diameter, or 10 mm or less post-cholecystectomy. Pancreas: Visualized portions of the pancreas are sonographically normal. The tail the pancreas is not visualized. . IMPRESSION: 1. Increased hepatic echogenicity noted likely related to fatty infiltration of the liver but other sources of hepatocellular disease cannot be excluded. 2. Gallbladder sludge. No findings to suggest choledocholithiasis or acute cholecystitis. Dictated by: Toshia Rodarte M.D. on 01/17/2023 at 11:13 Approved by: Toshia Rodarte M.D. on 01/17/2023 at 11:14
== END ==
PROVIDERS: PCP Nurse Practitioner; Referring Provider Surgery; Visit Provider Surgery
DX: K82.8 Other specified diseases of gallbladder (principal)
CPT/HCPCS: 76705

== ENCOUNTER 2023-02-17 07:59 | Day surgery (SDC) | payer MEDICARE, SELFPAY ==
[2023-02-17 08:11] VITALS: BP 125/70; PULSE 60; RESP 18; TEMP 36.3; O2SAT 98; BMI 38.6
--- NOTE | 2023-02-17 09:23 | PM.HP.1 ---
History of Present Illness History of Present Illness Date Patient Seen: 02/17/23 Time Patient Seen: 09: Chief complaint: Dx Colonoscopy Narrative: Giselle is a 77-year-old woman who had an advanced adenoma in her cecum. She underwent a right hemicolectomy by Dr. Baker. She is here for her surveillance colonoscopy [facility] Medical History Ankle pain (2004) Anxiety Arthritis Breast cancer, left (08/31/19) Bronchitis Chicken pox Constipation COVID-19 virus infection (09/2020) Foot pain (2004) Heartburn Knee torn cartilage, right (2004) Measles Mumps Osteoarthritis Plantar warts Pneumonia Rubella Sleep apnea Tendinitis of right hand Thin skin Whooping cough Surgical History Anesthesia complication History of arthroplasty of right knee (2014) History of right knee surgery (2004) History of shoulder surgery (2004) History of surgery (03/18/21) Status post partial mastectomy of left breast (11/22/19) Status post partial mastectomy of left breast (12/19/19) Status post right hemicolectomy Family History Brother Age: 74 Type II diabetes mellitus Status post knee replacement Son Age: 46 Anxiety and depression Mother Age: 96 Hypertension Osteoporosis Urinary disorder Anemia Hyponatremia Status post knee replacement Gait disturbance Blackout spell Family/Other Urinary disorder Cyst of right breast Kidney stones Father MVA (motor vehicle accident) Sister No problems noted. Social History marital status: household members: spouse occupational status: previously employed Smoking Status: Never smoker alcohol intake: current substance use type: marijuana Meds Home Medications and Allergies Home Medications Medication Instructions Recorded Confirmed Type clonidine HCl 0.1 mg tablet 0.1 mg PO BEDTIME PRN Night sweats 09/05/22 02/17/23 Rx #90 tabs zolpidem 5 mg tablet 5 mg PO BEDTIME PRN sleep #30 tabs 09/06/22 02/17/23 Rx Allergies Allergy/AdvReac Type Severity Reaction Status Date / Time No Known Drug Allergies Allergy Verified 02/17/23 08:07 Exam Vital Signs (past 8 hours): - 02/17/23 08:11 Temperature 97.4 F L Pulse Rate 60 Respiratory Rate 18 Blood Pressure 125/70 Pulse Oximetry 98 Oxygen Delivery Method Room Air Oxygen Delivery Method Room Air Const General: No acute distress Assessment & Plan Assessment and plan (1) Adenomatous colon polyp: Qualifiers: Colon location: descending Qualified Code(s): D12.4 - Benign neoplasm of descending colon Status: Acute Plan We reviewed the risks and benefits of colonoscopy for surveillance and she would like to proceed.
--- NOTE | 2023-02-17 09:46 | PM.OP.COLON ---
Operative Date/Time/Diagnoses Date of procedure: 02/17/23 Time of procedure: 09:46 Pre-op diagnosis: History of advanced polyp Post-op diagnosis: same Procedure & Clinicians Study performed: Colonoscopy Same procedure as scheduled: Yes Surgeon: Paul Monaco Procedure Notes Procedure in detail: Surgeon: Paul Monaco MD Anesthesia: Cristhian Lima CRNA Procedure: The patient was brought to the endoscopy suite, placed in left lateral decubitus position. The patient was connected to monitoring devices. A time-out was performed. Sedation was administered. Once the patient was adequately sedated, a digital rectal exam was performed and was normal. The scope was then inserted and advanced to the anastomosis. Photographs were taken. The scope was then slowly withdrawn over greater than 6 minutes. The mucosa was thoroughly inspected. Was pandiverticulosis greatest in the sigmoid colon. Polyps were found. The scope was retroflexed in the rectum. Abnormalities were seen. The scope was straightened and removed. The patient was awakened and brought to recovery. Scope withdrawal time: 6 minutes Sedation time: 10 minutes EBL: 0 Findings: Diverticulosis Post-procedure Disposition: PACU
[2023-02-17 09:47] VITALS: BP 110/51; PULSE 63; RESP 20; TEMP 36.2; O2SAT 95
[2023-02-17 09:52] VITALS: BP 113/66; PULSE 57; RESP 18; O2SAT 95
[2023-02-17 09:56] VITALS: BP 85/44; PULSE 90; RESP 16; O2SAT 96
[2023-02-17 09:59] VITALS: BP 85/44; PULSE 78; RESP 17; O2SAT 97
== END 2023-02-17 10:23 | disposition home or self-care (01) ==
PROVIDERS: PCP Nurse Practitioner; Referring Provider Surgery; Visit Provider Surgery
PROC: 0DJD8ZZ Inspection of Lower Intestinal Tract, Via Natural or Artificial Opening Endoscopic (ICD-10-PCS; CPT 45378; principal; 2023-02-17 09:15)
DX: Z12.11 Encounter for screening for malignant neoplasm of colon (principal); Z86.010 Personal history of colon polyps; K57.30 Diverticulosis of large intestine without perforation or abscess without bleeding
CPT/HCPCS: G0105; J2704

== ENCOUNTER 2023-02-22 13:21 | Day surgery (SDC) | payer MEDICARE, SELFPAY ==
[2023-02-16 09:33] VITALS: BMI 38.2
[2023-02-22] VITALS (11 sets, daily range): BP systolic 122–137; BP diastolic 40–80; PULSE 59–81; RESP 12–18; TEMP 36.1–36.5; O2SAT 93–98; BMI 37.8
--- NOTE | 2023-02-22 | PATH_ITS ---
[facility] Accession Number: [id number] No. of containers..01 Tissue . 01 Material submitted: . gallbladder - GALLBLADDER AND CONTENTS . 01 Diagnosis: Gallbladder, Cholecystectomy: Chronic cholecystitis and cholelithiasis. Benign pericystic lymph node. Negative for dysplasia and neoplasia. MRV [id number]/07/[id number] Local . 01 Electronically signed: . Minnie Osman MD, Pathologist NPI- [id number] . 01 Gross description: . The specimen is received in formalin labeled with the patient's name, , and gallbladder and contents consists of a single intact gallbladder measuring 7.8 x 3.7 x 2.8 cm. The serosal surface is green and blue with diffuse areas of red stippling. A single pericystic lymph node candidate is noted measuring 0.3 cm in greatest dimension (inked blue). The cystic duct margin is stapled, inked black, and is occluded by multiple black sand-like calculi measuring 0.4 cm in greatest aggregate dimension. The gallbladder is opened to reveal approximately 3 mL of green viscous bile and multiple friable black sand-like calculi aggregating to 0.8 cm in greatest dimension. The mucosal surface is green and velvety with no polyps or lesions seen. The wall measures 0.2 cm in thickness. Template Inspector sections to include the cystic duct margin, pericystic lymph node candidate, and gallbladder wall are submitted in cassette A1. ([id number]) /MRV 02/24/2023 1559 Local . 01 Pathologist provided ICD-10: K82.8 . 01 CPT . 317286 Specimen Comment: A courtesy copy of this report has been sent to [phone] Performed at: 01 [facility] [address] [facility], [place], [place] [id number] MD Amador Pierre MD Phone: [phone]
--- NOTE | 2023-02-22 13:49 | P.HP_ITS ---
History of Present Illness History of Present Illness Date Patient Seen: 02/22/23 Time Patient Seen: 13:49 Chief complaint: Lap Haley Narrative: Giselle is a 77-year-old woman with gallbladder pain and sludge. She is here for her laparoscopic cholecystectomy. See the office note for further details. ON LICENSE OF [facility] Medical History Ankle pain (2004) Anxiety Arthritis Breast cancer, left (08/31/19) Bronchitis Chicken pox Constipation COVID-19 virus infection (09/2020) Foot pain (2004) Heartburn Knee torn cartilage, right (2004) Measles Mumps Osteoarthritis Plantar warts Pneumonia Rubella Sleep apnea Tendinitis of right hand Thin skin Whooping cough Surgical History Anesthesia complication History of arthroplasty of right knee (2014) History of right knee surgery (2004) History of shoulder surgery (2004) History of surgery (03/18/21) Status post partial mastectomy of left breast (11/22/19) Status post partial mastectomy of left breast (12/19/19) Status post right hemicolectomy Family History Brother Age: 74 Type II diabetes mellitus Status post knee replacement Son Age: 46 Anxiety and depression Mother Age: 96 Hypertension Osteoporosis Urinary disorder Anemia Hyponatremia Status post knee replacement Gait disturbance Blackout spell Family/Other Urinary disorder Cyst of right breast Kidney stones Father MVA (motor vehicle accident) Sister No problems noted. Social History marital status: household members: spouse occupational status: previously employed Smoking Status: Never smoker alcohol intake: current substance use type: marijuana Meds Home Medications and Allergies Home Medications Medication Instructions Recorded Confirmed Type clonidine HCl 0.1 mg tablet 0.1 mg PO BEDTIME PRN Night sweats 09/05/22 02/17/23 Rx #90 tabs zolpidem 5 mg tablet 5 mg PO BEDTIME PRN sleep #30 tabs 09/06/22 02/17/23 Rx Allergies Allergy/AdvReac Type Severity Reaction Status Date / Time No Known Drug Allergies Allergy Verified 02/22/23 13:35 Exam Const General: No acute distress Resp Effort & Inspection: normal respiratory effort Assessment & Plan Assessment and plan (1) Biliary colic: Status: Acute Plan We reviewed the risks and benefits of laparoscopic cholecystectomy and she would like to proceed.
[2023-02-22] MEDS: LACTATED RINGERS 1,000 ML 100 ML IV ×3 (13:59→22:03)
[2023-02-22] MEDS: CEFAZOLIN 2 GM/100 ML PREMIX 100 ML IV (14:30)
--- NOTE | 2023-02-22 14:55 | SUR.OPER ---
Supine on padded OR bed, head on pillow, safety belt at thigh, left arm padded and tucked at side. Right arm secured on padded arm board <90 degrees abduction. Legs uncrossed. Padded footboard in place. Tape over blanket to secure lower legs.
[2023-02-22] MEDS: BUPIVACAINE 0.5% W/ EPI (PF) 30 ML VIAL INJ (15:01)
[2023-02-22] MEDS: AMPICILLIN/SULBACTAM 3 GM 3 GM in SODIUM CHLORIDE 0.9% 100 ML IV ×2 (16:01→21:30)
--- NOTE | 2023-02-22 17:38 | P.OP_ITS ---
Operative Date/Time/Diagnoses Date of procedure: 02/22/23 Time of procedure: 17:39 Pre-op diagnosis: Biliary colic Post-op diagnosis: other (Biliary colic and extensive adhesions) Procedure & Clinicians Procedure: Laparoscopic cholecystectomy Extensive lysis of adhesions Repair of enterotomy Same procedure as scheduled: No Surgeon: Paul Monaco [place] Technician: Cuauhtemoc Falcon Anesthesia Type: General Operative Notes Procedure in detail: The patient was given preoperative antibiotic. The patient was brought to the operating room, placed on the table in the supine position. General endotracheal anesthesia was induced. The abdomen was prepped and draped. A time-out was performed. We made a 1 cm infraumbilical incision inferior to the old upper midline scar. We dissected down to the base of the umbilical stalk using cautery. We grasped the umbilical stalk with a Rocío clamp to elevate the abdominal wall. We scored the fascia in the midline with cautery 1 cm. We pierced the peritoneum with a Peon clamp. The Sharda port was placed and the abdomen was insufflated to 15 mmHg. A 5 mm 30 degree laparoscopic was inserted. There were extensive adhesions of small bowel to the upper abdominal wall including the right upper quadrant. We then placed 2 5 mm ports in the left lower abdomen where there were no adhesions. We then started to take down the extensive adhesions from the upper midline scar. We did create 2 serosal tears. Upon further dissection we noted a full-thickness enterotomy to a loop of small bowel that was adherent to the upper midline. There was minimal spillage of succus. Eventually we are able to completely take down all the adhesions from the abdominal wall in the right upper abdomen. The ports were placed in the usual positions for a laparoscopic cholecystectomy. The patient was then posit ioned in reverse Trendelenburg and the table was tilted to the left. The gallbladder was grasped at the dome and retracted cephalad. Filmy adhesions of a loop of small bowel were dissected from the gallbladder surface. We then dissected the cystic structures with a combination of hook cautery and blunt dissection. We obtained a critical view. We placed clips on the cystic duct and artery and divided the cystic duct and artery sharply between the clips. The gallbladder was then dissected off the liver and placed in a specimen retrieval bag. We then removed the 5 mm ports under direct vision we removed the Sharda port. We then extended the infraumbilical incision to create a 7 cm upper midline incision. We exteriorized the loops of small bowel that had been adherent to the abdominal wall. We located the full-thickness injury. There was minimal spillage and the hole was quite small. We closed the defect transversely using multiple interrupted 2 0 silk sutures in a seromuscular manner. We repaired two other since serosal tears with 2 0 silk sutures. We then injected some local into the fascia and closed the fascial incision with a running 0 PDS suture.. The skin incisions were closed with giuseppe. Dressings were applied. EBL: 30 mL Specimen: Gallbladder Cuauhtemoc TANNER provided assistance with exposure, retraction and closure of incisions. Post-operative Condition: stable Disposition: PACU
[2023-02-22] MEDS: ONDANSETRON 4 MG/2 ML INJ IV (17:58)
[2023-02-22] MEDS: hydrOXYzine 50 MG/ML INJ 25 MG IM (17:58)
[2023-02-22] MEDS: OXYCODONE/ACETAMINOPHEN 5/325 TABLET 1 TAB PO (18:11)
--- NOTE | 2023-02-22 19:03 | PC.NURSE ---
Pt to room 223 via bed from PACU. Pt is very drowsy but able to wake with a shake and her name called but then falls back asleep. Spouse at the bedside and assisted with admission. Pt and Spouse oriented to room, call light, bed controls, and tv controls. Bed alarm on for safety - scd's on and running.
[2023-02-22] MEDS: HYDROCODONE/ACET 5/325 TABLET 1 TAB PO (21:55)
[2023-02-23 01:00] VITALS: BP 117/45; PULSE 61; RESP 18; TEMP 36.2; O2SAT 94
[2023-02-23] MEDS: AMPICILLIN/SULBACTAM 3 GM 3 GM in SODIUM CHLORIDE 0.9% 100 ML IV ×2 (03:48→12:41)
[2023-02-23 04:33] VITALS: BP 125/48; PULSE 71; RESP 16; TEMP 36.6; O2SAT 95
[2023-02-23] MEDS: HYDROCODONE/ACET 5/325 TABLET 1 TAB PO (08:04)
[2023-02-23] MEDS: ACETAMINOPHEN 325 MG TABLET 650 MG PO (09:15)
[2023-02-23] MEDS: IBUPROFEN 600 MG TABLET PO (09:15)
[2023-02-23 09:34] VITALS: BP 110/45; PULSE 58; RESP 25; TEMP 36.8; O2SAT 90
--- NOTE | 2023-02-23 09:57 | PM.PN.1 ---
Subjective Subjective Date Patient Seen: 02/23/23 Time Patient Seen: 09:57 Interval history: Giselle complains of some incisional pain this morning. She is still waking up. She does not have much appetite yet. Exam Vital Signs (past 8 hours): - 02/23/23 04:33 02/23/23 09:34 Temperature 97.8 F 98.2 F Pulse Rate 71 58 L Respiratory Rate 16 25 H Blood Pressure 125/48 L 110/45 L Pulse Oximetry 95 90 L Oxygen Flow Rate 1 Oxygen Delivery Method Nasal Cannula Oxygen Flow Rate 1 Narrative Exam Narrative: Dressings are intact Abdomen soft PFSH Medical History Ankle pain (2004) Anxiety Arthritis Breast cancer, left (08/31/19) Bronchitis Chicken pox Constipation COVID-19 virus infection (09/2020) Foot pain (2004) Heartburn Knee torn cartilage, right (2004) Measles Mumps Osteoarthritis Plantar warts Pneumonia Rubella Sleep apnea Tendinitis of right hand Thin skin Whooping cough Surgical History Anesthesia complication History of arthroplasty of right knee (2014) History of right knee surgery (2004) History of shoulder surgery (2004) History of surgery (03/18/21) Status post partial mastectomy of left breast (11/22/19) Status post partial mastectomy of left breast (12/19/19) Status post right hemicolectomy Family History Brother Age: 74 Type II diabetes mellitus Status post knee replacement Son Age: 46 Anxiety and depression Mother Age: 96 Hypertension Osteoporosis Urinary disorder Anemia Hyponatremia Status post knee replacement Gait disturbance Blackout spell Family/Other Urinary disorder Cyst of right breast Kidney stones Father MVA (motor vehicle accident) Sister No problems noted. Social History marital status: household members: spouse occupational status: previously employed Smoking Status: Never smoker alcohol intake: current substance use type: marijuana Assessment & Plan Assessment and plan (1) Postoperative examination: Status: Acute Plan We will advance to regular diet at lunch time and if she tolerates it she could go home later today. Quality VTE Deep Vein Thrombosis/Pulmonary Embolism Present on Admission: No
[2023-02-23] MEDS: HYDROCODONE/ACET 5/325 TABLET 2 TAB PO (12:41)
--- NOTE | 2023-02-23 14:11 | PM.DS.1 ---
History of Present Illness History of Present Illness Chief complaint: Lap Haley Narrative: Giselle is a 77-year-old woman with gallbladder pain and sludge. She is here for her laparoscopic cholecystectomy. See the office note for further details. Discharge Providers Provider Discharge Date: 02/23/23 Primary care physician: BROOKE Mattson Discharge provider: Paul Monaco MD Summary Hospital Course Discharge Diagnosis: Postoperative state Hospital Course: Giselle was admitted overnight following her elective laparoscopic cholecystectomy because the surgery was complicated by extensive intra-abdominal adhesions. She underwent a lysis of adhesion with repair of a small bowel enterotomy. By postoperative day 1 she was feeling well and tolerating a regular diet and was discharged home. Exam Vital Signs (past 8 hours): - 02/23/23 09:34 Temperature 98.2 F Pulse Rate 58 L Respiratory Rate 25 H Blood Pressure 110/45 L Pulse Oximetry 90 L Oxygen Delivery Method Nasal Cannula Oxygen Flow Rate 1 PFSH Medical History Ankle pain (2004) Anxiety Arthritis Breast cancer, left (08/31/19) Bronchitis Chicken pox Constipation COVID-19 virus infection (09/2020) Foot pain (2004) Heartburn Knee torn cartilage, right (2004) Measles Mumps Osteoarthritis Plantar warts Pneumonia Rubella Sleep apnea Tendinitis of right hand Thin skin Whooping cough Surgical History Anesthesia complication History of arthroplasty of right knee (2014) History of right knee surgery (2004) History of shoulder surgery (2004) History of surgery (03/18/21) Status post partial mastectomy of left breast (11/22/19) Status post partial mastectomy of left breast (12/19/19) Status post right hemicolectomy Family History Brother Age: 74 Type II diabetes mellitus Status post knee replacement Son Age: 46 Anxiety and depression Mother Age: 96 Hypertension Osteoporosis Urinary disorder Anemia Hyponatremia Status post knee replacement Gait disturbance Blackout spell Family/Other Urinary disorder Cyst of right breast Kidney stones Father MVA (motor vehicle accident) Sister No problems noted. Social History marital status: household members: spouse occupational status: previously employed Smoking Status: Never smoker alcohol intake: current substance use type: marijuana Discharge Plan Discharge Plan Patient Disposition: Home Provider Discharge Comment: No lifting greater than 20 lb for 2 weeks. Okay to remove the outer dressing and shower on . Leave the Steri-Strips on until they start to peel off in 1-2 weeks. Discharge orders & Medications Discharge Orders: Discharge (Order); Ordered 02/23/23 Ordered By: Paul Monaco Prescriptions: New hydrocodone-acetaminophen 5-325 mg tablet 1 tab PO Q8H PRN (Reason: pain) Qty: 10 0RF Continued clonidine HCl 0.1 mg tablet 0.1 mg PO BEDTIME PRN (Reason: Night sweats) Qty: 90 3RF zolpidem 5 mg tablet 5 mg PO BEDTIME PRN (Reason: sleep) Qty: 30 4RF Hold Instructions: change to 5mg #30 4RF Follow up/Referrals: Cindi Domínguez ARNP [Primary Care Provider] - Visit Report/Discharge Packet Stand Alone Forms: Patient Portal/API Discharge Data Primary Care Provider: Cindi Domínguez Attending Provider: Paul Monaco VTE Deep Vein Thrombosis/Pulmonary Embolism Present on Admission: No
--- NOTE | 2023-02-23 18:32 | PC.NURSE ---
Pt is dressed and ready for discharge home with Spouse. IV has been removed. Pt has finished dinner. Went over d/c instructions with Pt and Spouse-discussed d/c meds, time of last dose, reviewed stroke education, no lifting greater than 20 pounds, eat an easy to digest diet, watch for signs and symptoms of infection, drink plenty of fluids to prevent constipation or dehydration and follow up as directed. Pt denied further questions and was taken out via w/c by RN to pov with Spouse and all belongings.
== END 2023-02-23 18:37 | disposition home or self-care (01) ==
LOC: OR 13:22 → AC 17:12
PROVIDERS: PCP Nurse Practitioner; Referring Provider Surgery; Visit Provider Surgery
PROC: 0FT44ZZ Resection of Gallbladder, Percutaneous Endoscopic Approach (ICD-10-PCS; CPT 47562; principal; 2023-02-22 13:15)
DX: K80.10 Calculus of gallbladder with chronic cholecystitis without obstruction (principal); K66.0 Peritoneal adhesions (postprocedural) (postinfection)
CPT/HCPCS: 47562; J0295; J0690; J1170; J2405; J3010; J3410; J3490

== ENCOUNTER → 2023-04-08 09:34 | Outpatient (CLI) | payer MEDICARE, SELFPAY ==
[2023-02-22 18:32] VITALS: BMI 37.8
--- NOTE | 2023-04-08 | DI.MG.S_ITS ---
BILATERAL DIGITAL SCREENING MAMMOGRAM 3D/2D WITH CAD: 04/08/2023 CLINICAL: Routine screening. Personal history of left breast cancer. Comparison is made to exams dated: 07/20/2021 mammogram, 07/16/2020 mammogram, and 07/14/2019 mammogram - [facility]. There are scattered areas of fibroglandular density in both breasts (category b / 25%-50% glandular tissue). Current study was also evaluated with a Computer Aided Detection (CAD) system. There are benign post operative findings in the left breast. No significant masses, calcifications, or other findings are seen in either breast. There has been no significant interval change. IMPRESSION: BENIGN There is no mammographic evidence of malignancy. A 1 year screening mammogram is recommended. This exam was interpreted at Station ID: [id number]. NOTE: For mammograms, a report in lay terms will be sent to the patient. Approximately 15% of breast malignancies will not be visualized mammographically. In the management of a palpable breast mass, a negative mammogram must not discourage biopsy of a clinically suspicious lesion. Electronically Signed By: Bakari campuzano/les:04/08/2023 13:10:45 letter sent: Normal Exam ACR BI-RADS Category 2: Benign Finding(s) 3342F
== END ==
PROVIDERS: PCP Nurse Practitioner; Referring Provider Nurse Practitioner; Visit Provider Nurse Practitioner
DX: Z12.31 Encounter for screening mammogram for malignant neoplasm of breast (principal); Z85.3 Personal history of malignant neoplasm of breast
CPT/HCPCS: 77063; 77067

== ENCOUNTER → 2023-10-24 10:12 | Outpatient (CLI) | payer MEDICARE, SELFPAY ==
[2023-02-22 18:32] VITALS: BMI 37.8
[2023-10-24 11:15] LABS: Alanine Aminotransferase 17 IU/L (<35); Albumin 3.9 g/dL (3.5-5.0); Albumin Globulin Ratio 1.3 (1.0-2.8); Alkaline Phosphatase 83 U/L (38-126); Aspartate Aminotransferase 19 IU/L (14-36); BUN Creatinine Ratio 20.8 (6-22); Bilirubin Total 0.9 mg/dL (0.2-1.3); Blood Urea Nitrogen 15 mg/dL (7-17); Calcium 9.4 mg/dL (8.4-10.2); Carbon Dioxide 30 mmol/L (22-32); Chloride 105 mmol/L (98-107); Estimated Glomerular Filt Rate > 60 mL/min (>60); Globulin 3.1 g/dL (1.7-4.1); Glucose 106 mg/dL (80-110); HEMOLYSIS < 15 (0-50); Potassium 4.5 mmol/L (3.4-5.1); Sodium 138 mmol/L (137-145)
[2023-10-24 16:45] LABS: Hep C Virus Ab w/Reflex Quant NEGATIVE s/c (NEGATIVE)
== END ==
PROVIDERS: PCP Nurse Practitioner; Referring Provider Nurse Practitioner; Visit Provider Nurse Practitioner
DX: R73.01 Impaired fasting glucose (principal); Z11.59 Encounter for screening for other viral diseases
CPT/HCPCS: 36415; 80053; 83036; 86803

== ENCOUNTER → 2024-02-28 09:17 | Outpatient (CLI) | payer MEDICARE, SELFPAY ==
[2023-02-22 18:32] VITALS: BMI 37.8
[2024-02-28 11:33] LABS: Alanine Aminotransferase 12 IU/L (<35); Albumin 4.2 g/dL (3.5-5.0); Albumin Globulin Ratio 1.6 (1.0-2.8); Alkaline Phosphatase 91 U/L (38-126); Aspartate Aminotransferase 20 IU/L (14-36); BUN Creatinine Ratio 20.5 (6-22); Bilirubin Total 1.1 mg/dL (0.2-1.3); Blood Urea Nitrogen 15 mg/dL (7-17); Calcium 9.6 mg/dL (8.4-10.2); Carbon Dioxide 28 mmol/L (22-32); Chloride 105 mmol/L (98-107); Estimated Glomerular Filt Rate > 60 mL/min (>60); Globulin 2.6 g/dL (1.7-4.1); Glucose 110 mg/dL (80-110); HEMOLYSIS 19 (0-50); Potassium 4.8 mmol/L (3.4-5.1); Sodium 138 mmol/L (137-145); Total Protein 6.8 g/dL (6.3-8.2)
[2024-02-28 11:42] LABS: Hemoglobin A1C% w Est Avg Glu 5.8 % (4.0-6.0)
== END ==
PROVIDERS: PCP Nurse Practitioner; Referring Provider Nurse Practitioner; Visit Provider Nurse Practitioner
DX: R73.03 Prediabetes (principal)
CPT/HCPCS: 36415; 80053; 83036

== ENCOUNTER → 2024-04-10 14:22 | Outpatient (CLI) | payer MEDICARE, SELFPAY ==
[2023-02-22 18:32] VITALS: BMI 37.8
--- NOTE | 2024-04-10 14:24 | DI.MG.S_ITS ---
BILATERAL DIGITAL SCREENING MAMMOGRAM 3D/2D WITH CAD: 04/10/2024 CLINICAL: Routine screening. Personal history of left breast cancer. Comparison is made to exams dated: 04/08/2023 mammogram, 07/20/2021 mammogram, 07/16/2020 mammogram, and 03/23/2022 mammogram - [facility]. There are scattered areas of fibroglandular density (category b / 25%-50% glandular tissue). Current study was also evaluated with a Computer Aided Detection (CAD) system. There are benign calcifications in both breasts. There also are benign post operative findings in the left breast. No significant masses, calcifications, or other findings are seen in either breast. There has been no significant interval change. IMPRESSION: BENIGN There is no mammographic evidence of malignancy. A 1 year screening mammogram is recommended. This exam was interpreted at Station ID: [id number]. NOTE: For mammograms, a report in lay terms will be sent to the patient. Approximately 15% of breast malignancies will not be visualized mammographically. In the management of a palpable breast mass, a negative mammogram must not discourage biopsy of a clinically suspicious lesion. Electronically Signed By: Santiago lacy/les:04/10/2024 16:29:54 letter sent: Normal Exam ACR BI-RADS Category 2: Benign
== END ==
PROVIDERS: PCP Nurse Practitioner; Referring Provider Nurse Practitioner; Visit Provider Nurse Practitioner
DX: Z12.31 Encounter for screening mammogram for malignant neoplasm of breast (principal); Z85.3 Personal history of malignant neoplasm of breast
CPT/HCPCS: 77063; 77067

== ENCOUNTER → 2024-11-28 11:51 | Outpatient (CLI) | payer MEDICARE, SELFPAY ==
[2023-02-22 18:32] VITALS: BMI 37.8
--- NOTE | 2024-11-28 11:56 | DI.MG.S_ITS ---
MM diagnostic mammo unilat LT: 11/28/2024. BI-RADS: 2 CLINICAL: 79-year old female for left diagnostic mammogram. No Tyrer-Cuzick risk score calculation due to the patient's personal history of breast cancer. Patient reports a history of left breast carcinoma diagnosed at age 74. No first-degree family history of breast cancer. Patient was diagnosed within the last 5 years. The patient had a prior left breast biopsy. PRIOR EXAMS 04/10/2024, 04/08/2023, 03/23/2022, 09/17/2021, 07/20/2021, 07/16/2020, 12/11/2019, 11/22/2019, 08/28/2019, 08/14/2019, 07/14/2019, 06/27/2018, 06/21/2018, 06/17/2017, 06/09/2016, 06/03/2016, 05/25/2016, 05/12/2015. MAMMOGRAPHY TECHNIQUE: 2D and 3D (tomosynthesis) digital mammographic views obtained, with additional images as needed for full coverage. Current study was also evaluated with a Computer Aided Detection (CAD) system. DENSITY Left: B. There are scattered areas of fibroglandular density. MAMMOGRAPHY FINDINGS Left: There is no underlying mammographic correlate to the diffuse left breast skin change. There are stable benign coarse and secretory calcifications, post surgical scarring, and post radiation changes. There are no suspicious masses, calcifications, or other findings in the breast. IMPRESSION: Left * No evidence of malignancy with benign findings. RECOMMENDATIONS Left * Clinical followup with social sciences chair. Bilateral * Annual screening mammography in one year. COMMENTS: Findings and recommendations were conveyed to the patient during today's evaluation. OVERALL ASSESSMENT CATEGORY BI-RADS-2: Benign. The [employer] recommends annual screening mammography beginning at age 40 for women with average risk of breast cancer. ELECTRONICALLY SIGNED: Mimi Sellers M.D. on 11/28/2024 at 12:56:21 PM PT Interpreting Station ID: [id number]
== END ==
PROVIDERS: PCP Nurse Practitioner Family; Referring Provider Nurse Practitioner Family; Visit Provider Nurse Practitioner Family
DX: R23.4 Changes in skin texture (principal); C50.919 Malignant neoplasm of unspecified site of unspecified female breast; N64.4 Mastodynia; R73.03 Prediabetes; E66.9 Obesity, unspecified; R92.1 Mammographic calcification found on diagnostic imaging of breast; Z85.3 Personal history of malignant neoplasm of breast
CPT/HCPCS: 77065; G0279

== ENCOUNTER → 2025-05-30 11:12 | Outpatient (CLI) | payer MEDICARE, SELFPAY ==
[2023-02-22 18:32] VITALS: BMI 37.8
[2025-05-30 11:57] LABS: Hemoglobin A1C% w Est Avg Glu 6.1 % (4.0-6.0)
[2025-05-30 11:58] LABS: Blood Urea Nitrogen 14 mg/dL (7-17); Calcium 9.5 mg/dL (8.4-10.2); Carbon Dioxide 29 mmol/L (22-32); Chloride 104 mmol/L (98-107); Cholesterol 191 mg/dL (140-199); Estimated Glomerular Filt Rate > 60 mL/min (>60); Glucose 111 mg/dL (70-99); HDL Cholesterol 104 mg/dL (40-60); HEMOLYSIS < 15 (0-50); Potassium 4.5 mmol/L (3.4-5.1); Sodium 141 mmol/L (137-145); Triglycerides 48 mg/dL (35-150)
== END ==
PROVIDERS: PCP Nurse Practitioner Family; Referring Provider Nurse Practitioner Family; Visit Provider Nurse Practitioner Family
DX: R73.03 Prediabetes (principal); E66.9 Obesity, unspecified
CPT/HCPCS: 36415; 80048; 80061; 83036